=== PATIENT | female | born 1970 | race African-American/Black ===

== ENCOUNTER 2017-03-12 07:27 | Emergency (ER) | payer MEDICAID ==
[2017-03-12 07:34] VITALS: BP 150/94
--- NOTE | 2017-03-12 07:43 | ER Document Report ---
HPI - HPI Patient complains to provider of: Chronic back pain Onset: Other - Several years Onset/Duration: Gradual Quality of pain: Achy Pain Level: 1 Context: 46-year-old female recently moved here when out of her oxycodone 10 mg that she takes twice a day for chronic right-sided low back pain. She came to the emergency room to get a refill of her prescription. She was seen by an urgent care who gave her a steroid injection but would not give her the oxycodone. She does have an appointment on March 16 for pain management. She does not believe that she has been withdrawal at this time. No new symptoms. No saddle anesthesia. No radiculopathy. Associated Symptoms: None Exacerbated by: Movement Relieved by: Other - Oxycodone - ROS ROS below otherwise negative: Yes Systems Reviewed and Negative: Yes All other systems reviewed and negative - REPRODUCTIVE Reproductive: DENIES: : - DERM Skin Color: Normal Past Medical History - General Information source: Patient - Social History Smoking Status: Unknown if Ever Smoked Frequency of alcohol use: None Drug Abuse: None Lives with: Family - Daughter Family History: Arthritis, CAD, CVA, Hyperlipidemia, Hypertension, Malignancy - Past Medical History Cardiac Medical History: Reports: Hx Congestive Heart Failure, Hx Hypertension, Hx Pulmonary Embolism - 2003 Pulmonary Medical History: Reports: Hx Asthma Renal/ Medical History: Denies: Hx Peritoneal Dialysis Musculoskeltal Medical History: Reports Hx Arthritis, Reports Hx Musculoskeletal Deformity - chronic back pain Past Surgical History: Reports: Hx Section - X3 Vertical Provider Document - CONSTITUTIONAL Agree With Documented VS: Yes Exam Limitations: No Limitations - INFECTION CONTROL TRAVEL OUTSIDE OF THE [place] IN LAST 30 DAYS: No - HEENT HEENT: Normocephalic - NECK Neck: Supple - RESPIRATORY Respiratory: Breath Sounds Normal, No Respiratory Distress O2 Sat by Pulse Oximetry: 100 - CARDIOVASCULAR Cardiovascular: Regular Rate, Regular Rhythm - BACK Back: Normal Inspection Notes: Tender right-sided low back and sacral iliac area, no rash - MUSCULOSKELETAL/EXTREMETIES Musculoskeletal/Extremeties: MAEW, FROM, Tender - See above - NEURO Level of Consciousness: Awake, Alert Motor/Sensory: No Motor Deficit, No Sensory Deficit - DERM Integumentary: Warm, Dry, No Rash Course - Vital Signs Vital signs: Temp Pulse Resp BP Pulse Ox 98.3 F 75 18 150/94 H 100 03/12/17 07:33 03/12/17 07:33 03/12/17 07:33 03/12/17 07:33 03/12/17 07:33 Discharge - Discharge Clinical Impression: Chronic back pain Qualifiers: Back pain location: low back pain Back pain laterality: right Sciatica presence : without sciatica Qualified Code(s): M54.5 - Low back pain Condition: Good Disposition: HOME, SELF-CARE Instructions: Low Back Pain ([facility]), Warm Packs ([facility]), Chronic Back Pain ([facility]), Ultram ([facility]) Additional Instructions: see dr. bui for chronic pain management to er any worsening, new symptoms Prescriptions: Tramadol HCl [Ultram 50 mg Tablet] 50 mg PO ASDIR PRN #20 tablet PRN Reason: Referrals: TARYN BUI MD [ACTIVE STAFF] - Follow up tomorrow
== END 2017-03-12 08:36 | disposition home or self-care (01) ==
LOC: ER 07:27
DX: M54.5 Low back pain (principal); M54.9 Dorsalgia, unspecified; G89.29 Other chronic pain; Z79.899 Other long term (current) drug therapy
CPT/HCPCS: 99283

== ENCOUNTER 2017-03-14 18:09 | Emergency (ER) | payer MEDICAID ==
--- NOTE | 2017-03-14 18:51 | ER Document Report ---
ED Medical Screen (RME) - General Chief Complaint: Chest Pain Stated Complaint: RIGHT SIDE CHEST PAIN Time Seen by Provider: 03/14/17 18:46 Notes: 46-year-old female with past medical history as recorded including pulmonary embolism in 2003, cardiac arrest 1989 who presents today with right-sided chest pain that she states is worse when she takes a deep breath and "moves my body". She denies any nausea, vomiting, fevers, calf pain or leg swelling. Patient used to be on Coumadin but was taken off this in 2007 by her primary care physician. TRAVEL OUTSIDE OF THE [place] IN LAST 30 DAYS: No - Related Data Allergies/Adverse Reactions: azithromycin [Azithromycin] Allergy (Verified 03/14/17 18:22) Penicillins Allergy (Verified 03/14/17 18:22) Past Medical History - Past Medical History Cardiac Medical History: Reports: Hx Congestive Heart Failure, Hx Hypertension, Hx Pulmonary Embolism - 2003 Pulmonary Medical History: Reports: Hx Asthma Renal/ Medical History: Denies: Hx Peritoneal Dialysis Musculoskeltal Medical History: Reports Hx Arthritis, Reports Hx Musculoskeletal Deformity - chronic back pain Past Surgical History: Reports: Hx Section - X3 Physical Exam - Vital signs Vitals: Temp Pulse Resp BP Pulse Ox 98.8 F 72 22 H 153/83 H 99 03/14/17 18:22 03/14/17 18:22 03/14/17 18:22 03/14/17 18:22 03/14/17 18:22 Course - Vital Signs Vital signs: Temp Pulse Resp BP Pulse Ox 98.8 F 72 22 H 153/83 H 99 03/14/17 18:22 03/14/17 18:22 03/14/17 18:22 03/14/17 18:22 03/14/17 18:22
[2017-03-14 19:28] LABS: ABSOLUTE BASOPHILS # (AUTO) 0.1 10^3/uL (0.0-0.2); ABSOLUTE EOSINOPHILS # (AUTO) 0.1 10^3/uL (0.0-0.6); ABSOLUTE LYMPHOCYTES (AUTO) 3.3 10^3/uL (0.5-4.7); ABSOLUTE MONOCYTES (AUTO) 0.4 10^3/uL (0.1-1.4); ABSOLUTE NEUT (AUTO) 8.6 10^3/uL (1.7-8.2); BASOPHILS % (AUTO) 0.7 % (0-2); HEMATOCRIT 37.9 % (36.0-47.0); HEMOGLOBIN 12.3 g/dL (12.0-15.5); LYMPHOCYTES % (AUTO) 26.3 % (13-45); MEAN CORPUSCULAR HEMOGLOBIN 27.8 pg (27.0-33.4); MEAN CORPUSCULAR HGB CONC 32.3 g/dL (32.0-36.0); MEAN CORPUSCULAR VOLUME 86 fl (80-97); MONOCYTES % (AUTO) 3.1 % (3-13); RED CELL DISTRIBUTION WIDTH 15.1 % (11.5-14.0); SEGMENTED NEUTROPHILS % (AUTO) 68.9 % (42-78); WHITE BLOOD COUNT 12.4 10^3/uL (4.0-10.5)
--- NOTE | 2017-03-14 19:33 | RADIOLOGY REPORT (SQ) ---
EXAM DESCRIPTION: CHEST PA/LAT COMPLETED DATE/TIME: 03/14/2017 7:23 pm REASON FOR STUDY: cp COMPARISON: September 2014 EXAM PARAMETERS: NUMBER OF VIEWS: two views TECHNIQUE: Digital Frontal and Lateral radiographic views of the chest acquired. RADIATION DOSE: NA LIMITATIONS: none FINDINGS: LUNGS AND PLEURA: No opacities, masses or pneumothorax. No pleural effusion. MEDIASTINUM AND HILAR STRUCTURES: No masses or contour abnormalities. HEART AND VASCULAR STRUCTURES: Heart normal size. No evidence for failure. BONES: No acute findings. HARDWARE: None in the chest. OTHER: No other significant finding. IMPRESSION: NO SIGNIFICANT RADIOGRAPHIC FINDING IN THE CHEST. TECHNICAL DOCUMENTATION: JOB ID: [id number] [employer]- All Rights Reserved
[2017-03-14 19:41] LABS: ANION GAP 11 (5-19); BLOOD UREA NITROGEN 17 mg/dL (7-20); CALCIUM 9.8 mg/dL (8.4-10.2); CARBON DIOXIDE 24 mmol/L (22-30); CHLORIDE 107 mmol/L (98-107); CREATININE RESULT 0.76 mg/dL (0.52-1.25); GLUCOSE 123 mg/dL (75-110); POTASSIUM 4.1 mmol/L (3.6-5.0); SODIUM 142.2 mmol/L (137-145)
--- NOTE | 2017-03-14 19:50 | EKG REPORT ---
SEVERITY:- ABNORMAL ECG - SINUS RHYTHM FIRST DEGREE AV BLOCK BORDERLINE T WAVE ABNORMALITIES : Confirmed by: Abdirizak Major 14-Mar-2017 19:50:19
[2017-03-14] MEDS ORDERED: ONDANSETRON HCL INJ/PF 4 MG/2 ML SDV IV ONE (20:10)
[2017-03-14] MEDS ORDERED: MORPHINE SULFATE 10 MG/ML INJ IV ONE ×2 (20:10→22:10)
--- NOTE | 2017-03-14 20:10 | ER Document Report ---
ED General - General Mode of Arrival: Ambulatory Information source: Patient TRAVEL OUTSIDE OF THE [place] IN LAST 30 DAYS: No <SALENA GOMEZ - Last Filed: 03/14/17 22:23> <ERIC LUCIO - Last Filed: 03/14/17 23:58> - General Chief Complaint: Chest Pain Stated Complaint: RIGHT SIDE CHEST PAIN Time Seen by Provider: 03/14/17 18:46 Notes: Patient is a 46-year-old female who presents to emergency department today with complaints of chest pain for the last 1-2 weeks. Patient states this pain is somewhat reproducible with certain movements and right arm movement. Patient states that the pain is sharp and it hurts to breathe. Patient states that she feels like she has to take "short breaths" when she sits up. Patient states she has Toradol at home but it is not helping her pain. Patient states that she has a history of PE/DVT and was on Coumadin however now she is only taking 81 mg aspirin now. Patient denies any trauma to his chest. (SALENA GOMEZ) - Related Data Allergies/Adverse Reactions: azithromycin [Azithromycin] Allergy (Verified 03/14/17 18:22) Penicillins Allergy (Verified 03/14/17 18:22) Past Medical History - General Information source: Patient - Social History Smoking Status: Current Some Day Smoker Cigarette use (# per day): Yes Frequency of alcohol use: None Drug Abuse: None Lives with: Family Family History: Reviewed & Not Pertinent, Arthritis, CAD, CVA, Hyperlipidemia, Hypertension, Malignancy Patient has suicidal ideation: No Patient has homicidal ideation: No - Past Medical History Cardiac Medical History: Reports: Hx Congestive Heart Failure, Hx Hypertension, Hx Pulmonary Embolism - 2003 Pulmonary Medical History: Reports: Hx Asthma Renal/ Medical History: Denies: Hx Peritoneal Dialysis Musculoskeltal Medical History: Reports Hx Arthritis, Reports Hx Musculoskeletal Deformity - chronic back pain Past Surgical History: Reports: Hx Section - X3 <SALENA GOMEZ - Last Filed: 03/14/17 22:23> Review of Systems - Review of Systems Constitutional: No symptoms reported EENT: No symptoms reported Cardiovascular: See HPI, Chest pain Respiratory: See HPI, Hurts to breathe Gastrointestinal: No symptoms reported Genitourinary: No symptoms reported Female Genitourinary: No symptoms reported Musculoskeletal: No symptoms reported Skin: No symptoms reported Hematologic/Lymphatic: No symptoms reported Neurological/Psychological: No symptoms reported -: Yes All other systems reviewed and negative <SALENA GOMEZ - Last Filed: 03/14/17 22:23> Physical Exam <SALENA GOMEZ - Last Filed: 03/14/17 22:23> <ERIC LUCIO - Last Filed: 03/14/17 23:58> - Vital signs Vitals: Temp Pulse Resp BP Pulse Ox 98.8 F 72 22 H 153/83 H 99 03/14/17 18:22 03/14/17 18:22 03/14/17 18:22 03/14/17 18:22 03/14/17 18:22 - Notes Notes: Physical Exam: General: Alert, appears well. HEENT: Normocephalic. Atraumatic. PERRL. Extraocular movements intact. Oropharynx clear. Neck: Supple. Non-tender. Respiratory: No respiratory distress. Clear and equal breath sounds bilaterally. Right chest wall tenderness with palpation, reproducible pain. Cardiovascular: Regular rate and rhythm. Abdominal: Normal Inspection. Non-tender. No distension. Normal Bowel Sounds. Back: Right upper back tenderness with palpation. No deformity or step off. Extremities: Moves all four extremities. Upper extremities: Normal inspection. Normal ROM. Lower extremities: Normal inspection. No edema. Normal ROM. Neurological: Normal cognition. AAOx4. Normal speech. Psychological: Normal affect. Normal Mood. Skin: Warm. Dry. Normal color. (SALENA GOMEZ) Course - Laboratory Result Diagrams: 03/14/17 19:14 03/14/17 19:14 <SALENA GOMEZ - Last Filed: 03/14/17 22:23> - Laboratory Result Diagrams: 03/14/17 19:14 03/14/17 19:14 - Diagnostic Test Radiology reviewed: Reports reviewed <ERIC LUCIO - Last Filed: 03/14/17 23:58> - Re-evaluation Re-evalutation: 03/14/17 23:56 Patient with history of pulmonary embolus comes in complaining of chest pain that is worse with movement and breathing. Blood work within normal limits. No evidence for infection on x-ray. No evidence for pulmonary embolus on VQ scan. Attempted to get CTA with a line blue. Patient will be discharged home with pain medication and a sling. She is to follow-up with her doctor. Stable for discharge. Agrees with plan. (ERIC LUCIO) - Vital Signs Vital signs: Temp Pulse Resp BP Pulse Ox 98.8 F 72 19 167/105 H 96 03/14/17 18:22 03/14/17 18:22 03/14/17 23:01 03/14/17 23:01 03/14/17 23:01 - Laboratory Laboratory results interpreted by me: 03/14/17 03/14/17 19:14 19:14 WBC 12.4 H RDW 15.1 H Absolute Neutrophils 8.6 H Glucose 123 H Discharge <SALENA GOMEZ - Last Filed: 03/14/17 22:23> <ERIC LUCIO - Last Filed: 03/14/17 23:58> - Discharge Clinical Impression: Chest wall pain Rib sprain Qualifiers: Encounter type: initial encounter Qualified Code(s): S23.41XA - Sprain of ribs , initial encounter Condition: Stable Disposition: HOME, SELF-CARE Instructions: Chest Wall Pain ([facility]), Rib Injuries and Fractures ([facility]) Prescriptions: Oxycodone HCl/Acetaminophen [Percocet 5-325 mg Tablet] 1 - 2 tab PO Q4H PRN #15 tablet PRN Reason: Forms: Return to Work Scribe Attestation: 03/14/17 23:57 I personally performed the services described in the documentation, reviewed and edited the documentation which was dictated to the scribe in my presence, and it accurately records my words and actions. (ERIC LUCIO) Scribe Documentation - Scribe Written by Johann:: Johann Pierre, 03/14/[id number] acting as scribe for :: Leonel <SALENA GOMEZ - Last Filed: 03/14/17 22:23>
--- NOTE | 2017-03-14 23:48 | RADIOLOGY REPORT (SQ) ---
EXAM DESCRIPTION: NM LUNG VENT/PERF SCAN COMPLETED DATE/TIME: 03/14/2017 11:36 pm REASON FOR STUDY: evaluate for PE COMPARISON: Chest radiograph RADIONUCLIDE AND DOSE: 5.32 millicuries TC-99m MAA Intravenous 30.4 millicuries TC-99m DTPA Inhaled aerosol TECHNIQUE: Eight views of the lungs acquired post ventilation of DTPA aerosol. Eight matching views of the lungs acquired following injection of MAA. LIMITATIONS: None. FINDINGS: VENTILATION: Symmetric and homogeneous distribution of DTPA aerosol during ventilatory pha se. No significant areas of photopenia. PERFUSION: Perfusion images with normal homogenous activity and no wedge-shaped or segmental defects. No ventilation-perfusion mismatches. OTHER: No other significant finding. IMPRESSION: NORMAL VENTILATION-PERFUSION LUNG SCAN. NEGATIVE FOR PULMONARY EMBOLI. TECHNICAL DOCUMENTATION: JOB ID: [id number] [employer]- All Rights Reserved
[2017-03-14] MEDS ORDERED: HYDROCODONE/ACETAMINOPHEN 5-325 MG 6 TAB/DSPK PO PRN (23:52)
[2017-03-15 00:08] VITALS: BP 138/74
[2017-03-15] MEDS ORDERED: LIDOCAINE 5% (700 MG) TRANSDERMAL ADH..PATCH TP ONE (01:31)
== END 2017-03-15 00:09 | disposition home or self-care (01) ==
LOC: ER 18:09
DX: S23.41XA Sprain of ribs, initial encounter (principal); X58.XXXA Exposure to other specified factors, initial encounter; R07.89 Other chest pain; I10 Essential (primary) hypertension; J45.909 Unspecified asthma, uncomplicated; F17.210 Nicotine dependence, cigarettes, uncomplicated; Z79.82 Long term (current) use of aspirin; Z86.711 Personal history of pulmonary embolism; Z86.718 Personal history of other venous thrombosis and embolism; Z88.1 Allergy status to other antibiotic agents; Z88.0 Allergy status to penicillin; Z82.49 Family history of ischemic heart disease and other diseases of the circulatory system
CPT/HCPCS: 93005; 96376; 99285; 96374; 96375; 36415; 85025; 80048; 84484; 71020; 78582; 93010; A9540; A9567; J2270; J2405; Q9969

== ENCOUNTER 2018-07-04 20:33 | Emergency (ER) | payer SELFPAY ==
[2018-07-04] MEDS ORDERED: ONDANSETRON HCL INJ/PF 4 MG/2 ML SDV IV ONE ×2 (20:59→23:14)
[2018-07-04] MEDS ORDERED: NORMAL SALINE 1000 ML 1,000 ML IV ONE ×2 (20:59→23:42)
[2018-07-04] MEDS ORDERED: FENTANYL CITRATE INJ/PF 100 MCG/2 ML AMPUL IV ONE ×2 (20:59→21:53)
--- NOTE | 2018-07-04 21:05 | ER Document Report ---
ED GI/ - General Chief Complaint: Abdominal Pain Stated Complaint: ABDOMINAL PAIN Time Seen by Provider: 07/04/18 20:48 Notes: Patient is a 47-year-old female presenting to the emergency department complaining of her right lower abdominal pain and dysuria which started this evening. Patient admits the pain is crampy in nature and she is also nauseated. Patient denies any chest pain, shortness of breath, vaginal discharge, diarrhea, URI symptoms, headache, fever. Patient states she has been taking her medications as prescribed although did not take her evening dose. Past medical history: Hypertension, TIA, pulmonary embolism x2, asthma, kidney stones Medications: Captopril, amlodipine, albuterol, Xanax Allergies: penicillin, azithromycin Surgical history: section TRAVEL OUTSIDE OF THE [place] IN LAST 30 DAYS: No - Related Data Allergies/Adverse Reactions: azithromycin [Azithromycin] Allergy (Verified 03/14/17 18:22) Penicillins Allergy (Verified 03/14/17 18:22) Past Medical History - General Information source: Patient - Social History Smoking Status: Current Every Day Smoker Lives with: Family Family History: Reviewed & Not Pertinent, Arthritis, CAD, CVA, Hyperlipidemia, Hypertension, Malignancy - Past Medical History Cardiac Medical History: Reports: Hx Congestive Heart Failure, Hx Hypertension, Hx Pulmonary Embolism - 2003 Pulmonary Medical History: Reports: Hx Asthma Renal/ Medical History: Denies: Hx Peritoneal Dialysis Musculoskeletal Medical History: Reports Hx Arthritis, Reports Hx Musculoskeletal Deformity - chronic back pain Past Surgical History: Reports: Hx Section - X3 Review of Systems - Review of Systems Constitutional: See HPI EENT: See HPI Cardiovascular: See HPI Respiratory: See HPI Gastrointestinal: See HPI Genitourinary: See HPI Female Genitourinary: See HPI Musculoskeletal: See HPI Skin: No symptoms reported Hematologic/Lymphatic: No symptoms reported Neurological/Psychological: No symptoms reported Physical Exam - Vital signs Vitals: Pulse Ox 99 07/04/18 20:40 - Notes Notes: GENERAL: Alert, Writhing around on bed, crying in pain. Nursing staff is unable to obtain IV access at this time. HEAD: Normocephalic, atraumatic. EYES: Pupils equal, round, and reactive to light. Extraocular movements intact. ENT: Oral mucosa moist, tongue midline. NECK: Full range of motion. Supple. Trachea midline. LUNGS: Clear to auscultation bilaterally, no wheezes, rales, or rhonchi. No respiratory distress. HEART: Tachycardic rate and rhythm. No murmur ABDOMEN: Obese, Soft, Non-distended. Bowel sounds present in all 4 quadrants. Generalized pain right lower quadrant, nontender left lower quadrant left upper quadrant right upper quadrant. EXTREMITIES: Moves all 4 extremities spontaneously. No edema, normal radial and dorsalis pedis pulses bilaterally. No cyanosis. BACK: no cervical, thoracic, lumbar midline tenderness. No saddle anesthesia, normal distal neurovascular exam. Positive CVA tenderness right side NEUROLOGICAL: Alert and oriented x3. Normal speech. cranial nerves II through XII grossly intact PSYCH: Normal affect, normal mood. SKIN: Warm, dry, normal turgor. No rashes or lesions noted. Course - Re-evaluation Re-evalutation: Discussed CT results and UA with Dr. Escobar who recommends transfer to a hospital with urology. Patient has been treated multiple times with pain management continues to be tachycardic and hypertensive at this time. Patient is denying headache is just stating she has increased pain in her right lower quadrant. Discussed case with Dr. Tolentino, urologist at [facility] who states the patient should be transferred to their facility. States the patient needs to be accepted by the hospitalist and he will consult. Discussed case with Dr. Lim who is a hospitalist at [facility]. He recommends another liter of normal saline bolus and 0.8 mg p.o. tamsulosin. He states he will accept the patient. Rocephin also ordered. Slight leukocytosis seen and lab work. Positive urinary tract infection on UA, 3mm obstructing stone with right hydroureteronephrosis on CT. With administration of Dilaudid patient is now resting comfortably. She continues to be tachycardic at 110, second fluid bolus is currently being administered. Initial hypertension suspected due to patient's pain. Patient was also writhing around in the bed and nursing staff states they were unable to obtain an accurate blood pressure. Once patient was administered Dilaudid she is now resting comfortably and a manual blood pressure was obtained 210/110. Dr. Escobar suggests 10mg Labatolol IVP for HTN. Pt. remains CP and MILTON free. 07/05/18 02:36 Transport is at patient bedside. Patient states she is pain-free heart rate 108 blood pressure 181/109 96% on room air respiratory rate 14. Patient is stable for transfer. - Vital Signs Vital signs: Temp Pulse Resp BP Pulse Ox 98.6 F 23 H 181/109 H 95 07/04/18 20:53 07/05/18 02:01 07/05/18 02:01 07/05/18 02:01 - Laboratory Result Diagrams: 07/04/18 21:23 07/04/18 21:23 Laboratory results interpreted by me: 07/04/18 07/04/18 07/04/18 20:40 21:23 21:23 WBC 12.8 H RDW 14.3 H Absolute Neutrophils 9.8 H Glucose 120 H AST 48 H Lipase 395.8 H Urine Protein 30 H Urine Blood LARGE H Urine Nitrite POSITIVE H Ur Leukocyte Esterase SMALL H Discharge - Discharge Clinical Impression: Kidney stone on right side Hydronephrosis Qualifiers: Hydronephrosis type: with ureteral calculous obstruction Qualified Code(s): N13.2 - Hydronephrosis with renal and ureteral calculous obstruction Urinary tract infection Qualifiers: Urinary tract infection type: acute cystitis Hematuria presence: with hematuria Qualified Code(s): N30.01 - Acute cystitis with hematuria Condition: Stable Disposition: [facility] Admitting Provider: Hospitalist - Dr. Lim
[2018-07-04 21:35] LABS: ABSOLUTE BASOPHILS # (AUTO) 0.1 10^3/uL (0.0-0.2); ABSOLUTE EOSINOPHILS # (AUTO) 0.2 10^3/uL (0.0-0.6); ABSOLUTE LYMPHOCYTES (AUTO) 2.2 10^3/uL (0.5-4.7); ABSOLUTE MONOCYTES (AUTO) 0.5 10^3/uL (0.1-1.4); ABSOLUTE NEUT (AUTO) 9.8 10^3/uL (1.7-8.2); BASOPHILS % (AUTO) 0.6 % (0-2); EOSINOPHILS % (AUTO) 1.2 % (0-6); HEMATOCRIT 39.7 % (36.0-47.0); LYMPHOCYTES % (AUTO) 17.3 % (13-45); MEAN CORPUSCULAR HEMOGLOBIN 28.7 pg (27.0-33.4); MEAN CORPUSCULAR HGB CONC 32.7 g/dL (32.0-36.0); MEAN CORPUSCULAR VOLUME 88 fl (80-97); PLATELET COUNT 286 10^3/uL (150-450); RED BLOOD COUNT 4.53 10^6/uL (3.72-5.28); RED CELL DISTRIBUTION WIDTH 14.3 % (11.5-14.0); SEGMENTED NEUTROPHILS % (AUTO) 76.9 % (42-78); TOTAL CELLS COUNTED % (AUTO) 100 %; WHITE BLOOD COUNT 12.8 10^3/uL (4.0-10.5)
[2018-07-04 21:38] LABS: APPEARANCE,URINE CLOUDY; BILIRUBIN,URINE NEGATIVE (NEGATIVE); COLOR,URINE YELLOW; GLUCOSE, URINE NEGATIVE (NEGATIVE); KETONES,URINE NEGATIVE (NEGATIVE); LEUKOCYTE ESTERASE,URINE SMALL (NEGATIVE); NITRITE,URINE POSITIVE (NEGATIVE); PROTEIN,URINE 30 mg/dL (NEGATIVE); URINE SPECIFIC GRAVITY 1.016; UROBILINOGEN,URINE NEGATIVE mg/dL (<2.0)
[2018-07-04 21:47] LABS: ALANINE AMINOTRANSFERASE 50 U/L (9-52); ALBUMIN 4.1 g/dL (3.5-5.0); ALKALINE PHOSPHATASE 72 U/L (38-126); ANION GAP 12 (5-19); ASPARTATE AMINO TRANSFERASE 48 U/L (14-36); BILIRUBIN,DIRECT 0.3 mg/dL (0.0-0.4); BILIRUBIN,TOTAL 0.4 mg/dL (0.2-1.3); BLOOD UREA NITROGEN 16 mg/dL (7-20); CALCIUM 9.9 mg/dL (8.4-10.2); CARBON DIOXIDE 28 mmol/L (22-30); CHLORIDE 104 mmol/L (98-107); GLUCOSE 120 mg/dL (75-110); LIPASE 395.8 U/L (23-300); POTASSIUM 4.5 mmol/L (3.6-5.0); SODIUM 143.6 mmol/L (137-145); TOTAL PROTEIN 7.2 g/dL (6.3-8.2)
--- NOTE | 2018-07-04 22:26 | RADIOLOGY REPORT (SQ) ---
CT ABDOMEN PELVIS WITH IV CONTRAST HISTORY: Right lower quadrant pain. COMPARISON: None. TECHNIQUE: CT scan of the abdomen and pelvis with IV contrast. This exam was performed according to our departmental dose-optimization program, which includes automated exposure control, adjustment of the mA and/or kV according to patient size and/or use of iterative reconstruction technique. FINDINGS: Lung bases are clear. No pleural or pericardial effusions. Liver, gallbladder, spleen, pancreas, and adrenal glands are unremarkable. 3 mm obstructing stone in the proximal right ureter with right hydroureteronephrosis and perinephric/periureteric stranding. Additional punctate nonobstructing stones in the left kidney. Pelvic organs are unremarkable. No bowel obstruction. Appendix is normal. No free air or free fluid. Abdominal aorta is normal caliber. No acute osseous findings. IMPRESSION: 3 mm obstructing stone in the proximal right ureter with right hydroureteronephrosis and inflammatory stranding. Additional punctate nonobstructing stones in the left kidney.
[2018-07-04] MEDS ORDERED: KETOROLAC TROMETHAMINE INJ/PF 30 MG/1 ML SDV IV ONE (22:54)
[2018-07-04] MEDS ORDERED: HYDROMORPHONE HCL INJ/PF 2 MG/ML AMPULE IV ONE (23:14)
[2018-07-04] MEDS ORDERED: TAMSULOSIN HCL 0.4 MG CAP.SR.24H PO ONE (23:42)
[2018-07-05] MEDS ORDERED: HYDROMORPHONE HCL INJ/PF 2 MG/ML AMPULE IV ONE (00:59)
[2018-07-05] MEDS ORDERED: LABETALOL HCL INJ 20 MG/4 ML DISP.SYRIN IV ONE (00:59)
[2018-07-05] MEDS ORDERED: CEFTRIAXONE 1 GM/D5W RTU 1 GM/50 ML RTUPB IV ONE (01:00)
[2018-07-05 02:05] VITALS: BP 181/109
== END 2018-07-05 02:45 | disposition short-term general hospital (02) ==
LOC: ER 20:33
DX: N13.2 Hydronephrosis with renal and ureteral calculous obstruction (principal); N30.01 Acute cystitis with hematuria; I10 Essential (primary) hypertension; R00.0 Tachycardia, unspecified; F17.200 Nicotine dependence, unspecified, uncomplicated; J45.909 Unspecified asthma, uncomplicated; Z79.899 Other long term (current) drug therapy; Z88.0 Allergy status to penicillin; Z88.1 Allergy status to other antibiotic agents
CPT/HCPCS: 96376; 99285; 96361; 96375; 96365; 36415; 87086; 83690; 85025; 81025; 87088; 80053; 81001; 87186; 74177; J3010; J3490; J1885; J1170 ×2; J2405; J7030 ×2; J0696

== ENCOUNTER 2018-08-18 10:39 | Emergency (ER) | payer MEDICAID ==
[2018-08-18] MEDS ORDERED: ACETAMINOPHEN 325 MG TABLET PO ONE (11:18)
--- NOTE | 2018-08-18 11:24 | ER Document Report ---
ED Fall - General Chief Complaint: Fall Stated Complaint: FALL/HEAD PAIN Time Seen by Provider: 08/18/18 11:06 Mode of Arrival: Ambulatory Information source: Patient Notes: 48-year-old female presented to ED for complaint of body aches all over. She states she has bad pain to the right flank and abdomen. She states she has not had any hematuria but she is concerned because she recently had a stent removed and was told not to fall while recovering from the stent removal. She states yesterday she fell through her deck when it collapsed and [place] was [place] and had to come and caught her out. She states that they checked her out and told her since she was able to move all extremities and walk that she had no broken bones that she just needed to relax. Patient is able to walk with her walker as is her normal. She is alert oriented respirations regular and unlabored she does have some tenderness to the right flank area. TRAVEL OUTSIDE OF THE [place] IN LAST 30 DAYS: No - HPI Occurred: Yesterday Where: Home, Outdoors Context: Fell from height - Fell through the porch when the porch collapsed she was stuck in the porch into the farm and cut her out Associated symptoms: None Location of injury/pain: Other - Total body hurts right flank is very painful Quality of pain: Achy, Sharp Severity: Moderate Pain Level: 4 - Related data Allergies/Adverse Reactions: azithromycin [Azithromycin] Allergy (Verified 08/18/18 10:41) Penicillins Allergy (Verified 08/18/18 10:41) Past Medical History - General Information source: Patient - Social History Smoking Status: Current Every Day Smoker Cigarette use (# per day): Yes Smoking Education Provided: Yes - 4 min Lives with: Family Family History: Arthritis, Malignancy, CAD, CVA, Hyperlipidemia, Hypertension, Reviewed & Not Pertinent Patient has suicidal ideation: No Patient has homicidal ideation: No - Past Medical History Cardiac Medical History: Reports: Hx Congestive Heart Failure, Hx Hypertension, Hx Pulmonary Embolism - 2003 Pulmonary Medical History: Reports: Hx Asthma, Hx Bronchitis EENT Medical History: Reports: None Neurological Medical History: Reports: None Endocrine Medical History: Reports: None Renal/ Medical History: Reports: Hx Kidney Stones Malignancy Medical History: Reports: None GI Medical History: Reports: None Musculoskeletal Medical History: Reports Hx Arthritis, Reports Hx Musculoskeletal Deformity - chronic back pain Skin Medical History: Reports None Psychiatric Medical History: Reports: None Traumatic Medical History: Reports: None Infectious Medical History: Reports: None Past Surgical History: Reports: Hx Section - x3, Hx Kidney (Renal Surgery) - stent and removal - Immunizations Immunizations up to date: Yes Review of Systems - Review of Systems Constitutional: No symptoms reported EENT: No symptoms reported Cardiovascular: No symptoms reported Respiratory: No symptoms reported Gastrointestinal: No symptoms reported Genitourinary: Flank pain - right Female Genitourinary: No symptoms reported Musculoskeletal: Back pain, Joint pain, Muscle pain, Muscle stiffness. denies: Joint swelling Skin: No symptoms reported Hematologic/Lymphatic: No symptoms reported Neurological/Psychological: No symptoms reported Physical Exam - Vital signs Vitals: Temp Pulse Resp BP Pulse Ox 98.5 F 89 18 180/94 H 97 08/18/18 10:54 08/18/18 10:54 08/18/18 10:54 08/18/18 10:54 08/18/18 10:54 Interpretation: Normal - Notes Notes: Patient has muscle tenderness to her whole body. No point tenderness except for to the right flank area. Patient has chronic pain and states that she just hurts all over she is able to walk with her walker. - General General appearance: Appears well, Alert - HEENT Head: Normocephalic, Atraumatic Eyes: Normal Pupils: PERRL - Respiratory Respiratory status: No respiratory distress Chest status: Nontender Breath sounds: Normal Chest palpation: Normal - Cardiovascular Rhythm: Regular Heart sounds: Normal auscultation Murmur: No - Abdominal Inspection: Normal Distension: No distension Bowel sounds: Normal Tenderness: Nontender Organomegaly: No organomegaly - Back Back: Tender - Muscle tenderness to upper and lower back worse right kidney area, CVA tenderness - right - Extremities General upper extremity: Normal inspection, Nontender, Normal color, Normal ROM, Normal temperature General lower extremity: Normal inspection, Nontender, Normal color, Normal ROM, Normal temperature, Normal weight bearing. No: Edwin's sign - Neurological Neuro grossly intact: Yes Cognition: Normal Orientation: AAOx4 Sage Coma Scale Eye Opening: Spontaneous Sage Coma Scale Verbal: Oriented Raul Coma Scale Motor: Obeys Commands Sage Coma Scale Total: 15 Speech: Normal Motor strength normal: LUE, RUE, LLE, RLE Sensory: Normal - Psychological Associated symptoms: Normal affect, Normal mood - Skin Skin Temperature: Warm Skin Moisture: Dry Skin Color: Normal Course - Re-evaluation Re-evalutation: 08/18/18 18:23 CT and ultrasound was discussed with patient before she was discharged. PHYSICAL MEDICINE PHYSICIAN Dr. Horton was consulted due to the results of the CT and ultrasound. She stated the patient should call the office on Monday and schedule a appointment for follow-up with probable endometrial biopsies. Patient was educated to please call PHYSICAL MEDICINE PHYSICIAN on Monday and schedule follow-up. Patient was informed of her mildly hydronephrosis but no acute injuries. 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 Patient was discharged home. - Vital Signs Vital signs: Temp Pulse Resp BP Pulse Ox 98.4 F 79 18 154/106 H 99 08/18/18 14:30 08/18/18 14:30 08/18/18 14:30 08/18/18 14:30 08/18/18 14:30 - Diagnostic Test Radiology reviewed: Image reviewed, Reports reviewed Discharge - Discharge Clinical Impression: endometial changes, contusions multiple areas, Myalgia Fall Qualifiers: Encounter type: initial encounter Qualified Code(s): W19.XXXA - Unspecified fall, initial encounter Condition: Stable Disposition: HOME, SELF-CARE Instructions: Family Physicians / Practices Additional Instructions: Your CT showed thickening to your endometrium which is the lining of your uterus. I have discussed the CT and the ultrasound with you and with a cell room supervisor. [employer] has instructed that you follow-up with her on Monday for further testing and possible biopsies of the lining of your uterus. Please be sure to call them Monday morning and schedule a follow-up appointment. Please bring your CT and ultrasound results with you to this appointment. MUSCLE STRAIN: You have strained a muscle -- torn the fibers within the muscle. This often occurs with strenuous exertion, or during an injury that suddenly stretches the muscle. The seriousness of a strain varies. Some strains heal within days, others cause problems for months. X-rays cannot show a muscle strain. X-rays are taken only if symptoms suggest that a fracture could be present. The usual treatment of a muscle strain is rest and ice packs. Sometimes, a sling, splint, or crutches may be necessary to rest the muscle. The muscle can be used again once pain subsides. Severe strains require a special exercise and stretching program to prevent permanent stiffness and disability. Your doctor will advise you if this will be necessary. Call the doctor immediately if pain or swelling becomes severe, or if numbness or discoloration develop. CONTUSION: Your injury has resulted in a contusion -- a crushing of the deep tissues. No injury to important structures was detected during the physician's exam. Contusions vary in the amount of pain they cause, and in the length of time required for healing. Typically, the area will become bruised, and will remain painful to touch for two or three weeks. However, most patients are back to working and playing within a few days. After the initial period of rest and cold-packs, your symptoms (together with the doctor's recommendations) will determine how rapidly you can get back to full activity. Usually this means "do what feels okay, but don't do things that hurt." If re-examination was recommended, it's important to follow up as instructed. Call the doctor or return any time if pain increases, if swelling becomes severe, if you develop numbness or weakness in an injured extremity, or if any other alarming symptoms occur. LOW BACK PAIN: Three out of every four people will have an episode of disabling back pain during their lifetime. Most commonly the pain is due to straining of the muscles and ligaments in the low back. Usual treatment includes: (1) Rest on a firm surface. Avoid lying on your stomach. (2) Ice pack the painful area. After a few days, gentle heat may be used intermittently to relax the area, or ice packs can be continued. (3) Medication may be needed -- muscle relaxers and antiinflammatory medicines are commonly used. (4) As the back improves, exercises are prescribed to strengthen the back and abdominal muscles. Your doctor will advise you on the proper care for your back at each stage in your recovery. You may be better in a few days -- or healing may take several weeks. If new symptoms of a "herniated disc" (radiation of pain, numbness, or tingling down the back of the leg or weakness in the leg) occur, you should be re-examined. Further testing may be necessary. USE OF TYLENOL (ACETAMINOPHEN): Acetaminophen may be taken for pain relief or fever control. It's much safer than aspirin, offering a wider range of "safe" dosages. It is safe during . Some brand names are Tylenol, Panadol, Datril, Anacin 3, Tempra, and Liquiprin. Acetaminophen can be repeated every four hours. The following are maximum recommended dosages: WEIGHT Dose Drops Elixir Chewable(80mg) (LBS.) drprs=droppers tsp=teaspoon 6 40 mg 0.4 ml (1/2) 6-11 80 mg 0.8 ml (full) tsp 1 tab 12-16 120 mg 1 1/2 drprs 3/4 tsp 1 1/2 tabs 17-23 160 mg 2 drprs 1 tsp 2 tabs 24-30 240 mg 3 drprs 1 1/2 tsp 3 tabs 30-35 320 mg 2 tsp 4 tabs 36-41 360 mg 2 1/4 tsp 4 1/2 tabs 42-47 400 mg 2 1/2 tsp 5 tabs 48-53 480 mg 3 tsp 6 tabs 54-59 520 mg 3 1/4 tsp 6 1/2 tabs 60-64 560 mg 3 1/2 tsp 7 tabs 65-70 600 mg 3 3/4 tsp 7 1/2 tabs 71-76 640 mg 4 tsp 8 tabs 77-82 720 mg 4 1/2 tsp 9 tabs 83-88 800 mg 5 tsp 10 tabs >89 pounds or adults 650 mg to 900 mg Acetaminophen can be repeated every four hours. Maximum dose not to exceed 4000 mg a day. These maximum recommended dosages are slightly higher than the dosages written on the product container, but these dosages are very safe and below the toxic dosage for acetaminophen. ICE PACKS: Apply ice packs frequently against the painful area. Many different schedules are recommended, such as "20 minutes on, 20 minutes off" or "one hour ice, two hours rest." If you need to work, you may need to go longer between ice treatments. You should plan to have the area ice packed AT LEAST one fourth of the time. The ice should be applied over the wrap, tape, or splint, or over a layer of cloth -- not directly against the skin. Some ice bags have a built-in cloth and can be put directly on the skin. WARM PACKS: After approximately two days, apply gentle heat (such as a heating pad or hot water bottle) for about 20 to 30 minutes about every two hours -- at least four times daily. Warmth and elevation will help you make a more rapid recovery, and will ease the pain considerably. Do not use HOT heat, and never apply heat for longer than 30 minutes. The continuous heat can invisibly damage skin and muscles -- even when no burn is seen on the surface. Damaged muscles can make you MORE sore. MUSCLE RELAXERS: Muscle relaxing medications are usually prescribed for acute muscle spasm or injury to the neck and back. They are often combined with antiinflammatory pain medication for increased relief. You may stop the muscle relaxer when the pain and stiffness have improved. Start the medication again if spasms recur. Muscle relaxers may cause drowsiness, especially with the first dose. Do not operate machinery or drive while under the effects of the medication. Most muscle relaxers last up to 24 hours. Do not combine the medication with alcohol. FOLLOW-UP CARE: If you have been referred to a physician for follow-up care, call the physicians office for an appointment as you were instructed or within the next two days. If you experience worsening or a significant change in your symptoms, notify the physician immediately or return to the Emergency Department at any t franco for re-evaluation. Prescriptions: Cyclobenzaprine HCl [Flexeril 10 mg Tablet] 10 mg PO TIDP PRN #15 tab PRN Reason: Forms: Elevated Blood Pressure, Smoking Cessation Education Referrals: [facility] [Provider Group] - 08/22/18 (Please call [facility] Monday morning and schedule a follow-up appointment for Monday or for your changes to the CT and ultrasound)
[2018-08-18 11:46] LABS: APPEARANCE,URINE CLOUDY; BILIRUBIN,URINE NEGATIVE (NEGATIVE); COLOR,URINE YELLOW; GLUCOSE, URINE NEGATIVE (NEGATIVE); KETONES,URINE NEGATIVE (NEGATIVE); LEUKOCYTE ESTERASE,URINE NEGATIVE (NEGATIVE); NITRITE,URINE NEGATIVE (NEGATIVE); PROTEIN,URINE NEGATIVE (NEGATIVE); URINE SPECIFIC GRAVITY 1.023; UROBILINOGEN,URINE NEGATIVE mg/dL (<2.0)
--- NOTE | 2018-08-18 12:17 | RADIOLOGY REPORT (SQ) ---
EXAM DESCRIPTION: CT LTD RENAL STONE PROTOCOL ON COMPLETED DATE/TIME: 08/18/2018 11:45 am REASON FOR STUDY: fall yesterday recent removal of stent from kidney COMPARISON: 07/04/2018 TECHNIQUE: CT scan of the abdomen and pelvis performed without intravenous or oral contrast. Images reviewed with lung, soft tissue, and bone windows. Reconstructed coronal and sagittal MPR images revi ewed. All images stored on PACS. All CT scanners at this facility use dose modulation, iterative reconstruction, and/or weight based d osing when appropriate to reduce radiation dose to as low as reasonably achievable (ALARA). [facility]: Dose Right [facility]: CareDose [facility]: Dose Right [facility]: Teradose 4D [facility]: Smart Sinobpo RADIATION DOSE: CT Rad equipment meets quality standard of care and radiation dose reduction techniq ues were employed. CTDIvol: 17.6 mGy. DLP: 947 mGy-cm.mGy. LIMITATIONS: None FINDINGS: LOWER CHEST: No significant findings. No nodules or infiltrates. NON-CONTRASTED LIVER, SPLEEN, ADRENALS: Evaluation limited by lack of IV contrast. No identified sign ificant masses. PANCREAS: No masses. No peripancreatic inflammatory changes. GALLBLADDER: No identified stones by CT criteria. No inflammatory changes to suggest cholecystitis. RIGHT KIDNEY AND URETER: No suspicious masses. Assessment limited by lack of IV contrast. No signif icant calcifications. Minimal residual hydronephrosis hydroureter. LEFT KIDNEY AND URETER: No suspicious masses. Assessment limited by lack of IV contrast. Peripheral nonobstructive calculus. No hydronephrosis or hydroureter. AORTA AND RETROPERITONEUM: No aneurysm. No retroperitoneal masses or adenopathy. BOWEL AND PERITONEAL CAVITY: Diverticulosis. No diverticulitis. APPENDIX: Normal. PELVIS, BLADDER, AND ABDOMINAL WALL:Marked thickening of the endometrium. Worrisome finding in a pos tmenopausal female. BONES: No significant findings. OTHER: No other significant finding. IMPRESSION: Mild residual hydronephrosis on the right. No calculi. Marked thickening of endometrium, worrisome finding in postmenopausal female. COMMENT: Recommend pelvic ultrasound. Quality ID # [id number]: Final reports with documentation of one or more dose reduction techniques (e.g., Au tomated exposure control, adjustment of the mA and/or kV according to patient size, use of iterative reconstruction technique) TECHNICAL DOCUMENTATION: JOB ID: [id number] [employer]- All Rights Reserved Reading location - IP/workstation name: [email or web address]
--- NOTE | 2018-08-18 14:02 | RADIOLOGY REPORT (SQ) ---
EXAM DESCRIPTION: U/S NON OB PEL TV W/DOPPLER COMPLETED DATE/TIME: 08/18/2018 1:31 pm REASON FOR STUDY: radiology recomendation COMPARISON: CT abdomen and pelvis without contrast. TECHNIQUE: Dynamic and static grayscale images acquired of the pelvis via transvaginal approach and recorded on PACS. Additional selected color Doppler and spectral images recorded. LIMITATIONS: None. FINDINGS: UTERUS: The uterus is normal measuring 11.1 x 6.1 x 6.7 cm. ENDOMETRIAL STRIPE: There is evidence of a complex lobulated cystic fluid collection in the endometri al canal measuring 2.2 x 2.7 x 2.0 cm. The endometrium is thickened measuring 1.7 cm abnormal for po stmenopausal patient. CERVIX: There are nabothian cysts of the cervix. The cervix measures 4.4 cm. RIGHT OVARY AND DOPPLER: Nonvisualized. LEFT OVARY AND DOPPLER: Nonvisualized. IMPRESSION: Abnormal thickened endometrium in postmenopausal patient. Cystic lobulated fluid collec tion within the endometrial canal. Learning And Development Intern consultation recommended. . TECHNICAL DOCUMENTATION: JOB ID: [id number]-[id number] 2010 [employer]- All Rights Reserved Rev-01/12 Reading location - IP/workstation name: [email or web address]
[2018-08-18 14:27] VITALS: BP 154/106
== END 2018-08-18 14:30 | disposition home or self-care (01) ==
LOC: ER 10:39
DX: T14.8XXA Other injury of unspecified body region, initial encounter (principal); W13.3XXA Fall through floor, initial encounter; Y93.89 Activity, other specified; Y92.008 Other place in unspecified non-institutional (private) residence as the place of occurrence of the external cause; R93.89 Abnormal findings on diagnostic imaging of other specified body structures; N13.30 Unspecified hydronephrosis; R10.9 Unspecified abdominal pain; M25.50 Pain in unspecified joint; M79.10 Myalgia, unspecified site; M54.9 Dorsalgia, unspecified; G89.29 Other chronic pain; I10 Essential (primary) hypertension; J45.909 Unspecified asthma, uncomplicated; F17.210 Nicotine dependence, cigarettes, uncomplicated; Z71.6 Tobacco abuse counseling; Z98.890 Other specified postprocedural states; Z88.0 Allergy status to penicillin; Z88.1 Allergy status to other antibiotic agents; Z87.442 Personal history of urinary calculi
CPT/HCPCS: 99406; 99284; 81001; 76830; 93976; 76380; J3490

== ENCOUNTER 2018-08-28 18:27 | Emergency (ER) | payer MEDICAID ==
--- NOTE | 2018-08-28 21:11 | ER Document Report ---
Addendum entered and electronically signed by KRISHERIC MTONY 08/28/18 22:15: Course - Re-evaluation Re-evalutation: 08/28/18 22:15 Patient has been waiting in the waiting room and had to break out in hives. I have ordered her IV Benadryl to help with her symptoms. - Vital Signs Vital signs: Temp Pulse Resp BP Pulse Ox 99.4 F 84 15 153/81 H 97 08/28/18 18:47 08/28/18 18:47 08/28/18 18:47 08/28/18 18:47 08/28/18 18:47 - Laboratory Result Diagrams: 08/28/18 21:35 08/28/18 21:35 Original Note: ED Medical Screen (RME) - General Chief Complaint: Abdominal Pain Stated Complaint: ABDOMINAL PAIN Time Seen by Provider: 08/28/18 21:04 Notes: Patient is a 48-year-old female who presents to the emergency department with a chief complaint of abdominal pain. Her pain started this morning around 10:00. She does complain of some nausea, but no vomiting. She did state that she had a hard stool earlier and now has diarrhea. She denies any sick contacts. She has a history of a kidney stone with removal from urologist on August 02. She states she has been in menopause since she was 43 years old and had an ablation done. TRAVEL OUTSIDE OF THE [place] IN LAST 30 DAYS: No - Related Data Allergies/Adverse Reactions: azithromycin [Azithromycin] Allergy (Verified 08/18/18 10:41) Penicillins Allergy (Verified 08/18/18 10:41) Past Medical History - Past Medical History Cardiac Medical History: Reports: Hx Congestive Heart Failure, Hx Hypertension, Hx Pulmonary Embolism - 2003 Pulmonary Medical History: Reports: Hx Asthma, Hx Bronchitis Renal/ Medical History: Reports: Hx Kidney Stones. Denies: Hx Peritoneal Dialysis Musculoskeltal Medical History: Reports Hx Arthritis, Reports Hx Musculoskeletal Deformity - chronic back pain Past Surgical History: Reports: Hx Section - x3, Hx Kidney (Renal Surgery) - stent and removal - Immunizations Immunizations up to date: Yes Physical Exam - Vital signs Vitals: Temp Pulse Resp BP Pulse Ox 99.4 F 84 15 153/81 H 97 08/28/18 18:47 08/28/18 18:47 08/28/18 18:47 08/28/18 18:47 08/28/18 18:47 - Abdominal Bowel sounds: Normal Tenderness: Tender - Generalized Course - Vital Signs Vital signs: Temp Pulse Resp BP Pulse Ox 99.4 F 84 15 153/81 H 97 08/28/18 18:47 08/28/18 18:47 08/28/18 18:47 08/28/18 18:47 08/28/18 18:47
[2018-08-28] MEDS ORDERED: ONDANSETRON HCL INJ/PF 4 MG/2 ML SDV IV ONE (21:12)
[2018-08-28] MEDS ORDERED: MORPHINE SULFATE 10 MG/ML INJ IV ONE (21:35)
[2018-08-28 22:10] LABS: ABSOLUTE EOSINOPHILS # (AUTO) 0.1 10^3/uL (0.0-0.6); ABSOLUTE LYMPHOCYTES (AUTO) 2.6 10^3/uL (0.5-4.7); ABSOLUTE MONOCYTES (AUTO) 0.3 10^3/uL (0.1-1.4); ABSOLUTE NEUT (AUTO) 9.4 10^3/uL (1.7-8.2); BASOPHILS % (AUTO) 0.3 % (0-2); EOSINOPHILS % (AUTO) 0.8 % (0-6); HEMATOCRIT 39.8 % (36.0-47.0); HEMOGLOBIN 13.1 g/dL (12.0-15.5); LYMPHOCYTES % (AUTO) 20.6 % (13-45); MEAN CORPUSCULAR HEMOGLOBIN 28.8 pg (27.0-33.4); MEAN CORPUSCULAR HGB CONC 33.1 g/dL (32.0-36.0); MEAN CORPUSCULAR VOLUME 87 fl (80-97); MONOCYTES % (AUTO) 2.7 % (3-13); PLATELET COUNT 330 10^3/uL (150-450); RED BLOOD COUNT 4.57 10^6/uL (3.72-5.28); RED CELL DISTRIBUTION WIDTH 14.7 % (11.5-14.0); SEGMENTED NEUTROPHILS % (AUTO) 75.6 % (42-78); TOTAL CELLS COUNTED % (AUTO) 100 %; WHITE BLOOD COUNT 12.4 10^3/uL (4.0-10.5)
[2018-08-28 22:12] LABS: APPEARANCE,URINE CLEAR; BILIRUBIN,URINE NEGATIVE (NEGATIVE); COLOR,URINE YELLOW; GLUCOSE, URINE 50 mg/dL (NEGATIVE); KETONES,URINE 20 mg/dL (NEGATIVE); LEUKOCYTE ESTERASE,URINE NEGATIVE (NEGATIVE); NITRITE,URINE NEGATIVE (NEGATIVE); PROTEIN,URINE NEGATIVE (NEGATIVE); URINE SPECIFIC GRAVITY 1.023; UROBILINOGEN,URINE NEGATIVE mg/dL (<2.0)
[2018-08-28] MEDS ORDERED: DIPHENHYDRAMINE HCL 50 MG/ML VIAL IV ONE (22:14)
[2018-08-29 00:37] LABS: ALANINE AMINOTRANSFERASE 29 U/L (9-52); ALBUMIN 4.1 g/dL (3.5-5.0); ALKALINE PHOSPHATASE 63 U/L (38-126); ANION GAP 6 (5-19); ASPARTATE AMINO TRANSFERASE 23 U/L (14-36); BILIRUBIN,DIRECT 0.2 mg/dL (0.0-0.4); BILIRUBIN,TOTAL 0.5 mg/dL (0.2-1.3); BLOOD UREA NITROGEN 15 mg/dL (7-20); CALCIUM 9.8 mg/dL (8.4-10.2); CARBON DIOXIDE 28 mmol/L (22-30); CHLORIDE 106 mmol/L (98-107); GLUCOSE 97 mg/dL (75-110); LIPASE 112.5 U/L (23-300); POTASSIUM 4.3 mmol/L (3.6-5.0); SODIUM 139.9 mmol/L (137-145)
[2018-08-29] MEDS ORDERED: DICYCLOMINE HCL INJ 20 MG/2 ML AMPULE IM ONE (01:02)
[2018-08-29] MEDS ORDERED: FENTANYL CITRATE INJ/PF 100 MCG/2 ML AMPUL IV ONE (02:09)
[2018-08-29] MEDS ORDERED: NORMAL SALINE 1000 ML 1,000 ML IV ONE (02:10)
--- NOTE | 2018-08-29 02:12 | ER Document Report ---
ED General - General Chief Complaint: Abdominal Pain Stated Complaint: ABDOMINAL PAIN Time Seen by Provider: 08/28/18 21:04 Notes: Patient is a 48-year-old female presents with complaint of abdominal pains mostly in the upper and left-sided portion of her abdomen. Symptoms worse with eating or drink. She says any diarrhea. Some nausea. No fevers. She does have previous history of diverticulitis in 2003. No history of gallbladder disease. No blood with vomiting. She said that she has had some diarrhea that eventually did turn black but this was until after she took Pepto-Bismol. TRAVEL OUTSIDE OF THE [place] IN LAST 30 DAYS: No - Related Data Allergies/Adverse Reactions: azithromycin [Azithromycin] Allergy (Verified 08/18/18 10:41) Penicillins Allergy (Verified 08/18/18 10:41) Past Medical History - Social History Smoking Status: Current Every Day Smoker Chew tobacco use (# tins/day): No Frequency of alcohol use: None Drug Abuse: None Family History: Arthritis, Malignancy, CAD, CVA, Hyperlipidemia, Hypertension, Reviewed & Not Pertinent Patient has suicidal ideation: No Patient has homicidal ideation: No - Past Medical History Cardiac Medical History: Reports: Hx Congestive Heart Failure, Hx Hypertension, Hx Pulmonary Embolism - 2003 Pulmonary Medical History: Reports: Hx Asthma, Hx Bronchitis Renal/ Medical History: Reports: Hx Kidney Stones. Denies: Hx Peritoneal Dialysis Musculoskeletal Medical History: Reports Hx Arthritis, Reports Hx Musculoskeletal Deformity - chronic back pain Past Surgical History: Reports: Hx Section - x3, Hx Kidney (Renal Surgery) - stent and removal - Immunizations Immunizations up to date: Yes Review of Systems - Review of Systems Notes: My Normal Review Basic REVIEW OF SYSTEMS: CONSTITUTIONAL : Denies fever, chills, or sweats. Denies recent illness. EENT: Denies eye, ear, throat, or mouth pain or symptoms. Denies nasal or s inus congestion. RESPIRATORY: Denies cough, cold, or chest congestion. Denies shortness of breath, difficulty breathing, or wheezing. GASTROINTESTINAL: Some left-sided abdominal pain. Some nausea. Some diarrhea. GENITOURINARY: Denies difficulty urinating, painful urination, burning, frequency, or blood in urine. MUSCULOSKELETAL: Denies neck or back pain or joint pain or swelling. SKIN: Denies rash or skin lesions. NEUROLOGICAL: Denies altered mental status or loss of consciousness. Denies headache. Denies weakness or paralysis or loss of use of either side. Denies problems with gait or speech. Denies sensory or motor loss. ALL OTHER SYSTEMS REVIEWED AND NEGATIVE. Physical Exam - Vital signs Vitals: Temp Pulse Resp BP Pulse Ox 99.4 F 84 15 153/81 H 97 08/28/18 18:47 08/28/18 18:47 08/28/18 18:47 08/28/18 18:47 08/28/18 18:47 - Notes Notes: General Appearance: Well nourished, alert, cooperative, no acute distress, mild obvious discomfort. Vitals: reviewed, See vital signs table. Head: no swelling or tenderness to the head Eyes: PERRL, EOMI, Conjuctiva clear Mouth: No decreasd moisture Neck: Supple, no neck tenderness, No thyromegaly Lungs: No wheezing, No rales, No rhonci, No accessory muscle use, good air exchange bilaterally. Heart: Normal rate, Regular rythm, No murmur, no rub Abdomen: Normal BS, soft, No rigidity, mild left upper quadrant abdominal tenderness to palpation. Remainder of abdomen is nontender. Extremities: strength 5/5 in all extremities, good pulses in all extremities, no swelling or tenderness in the extremities, no edema. Skin: warm, dry, appropriate color, no rash Neuro: speech clear, oriented x 3, normal affect, responds appropriately to questions. Course - Re-evaluation Re-evalutation: 08/29/18 06:[address] scan just redemonstrated the findings of the uterus that need follow- up. Patient is already aware of these and so she is going to schedule follow-up with her snack bar cashier. States she called the office this morning. I informed patient that I do not see anything acutely life threatening or concerning on her CT scan or with her blood workup. I informed her that we will place her on medication for pain and nausea over the next 24 hours. She is to return to ER for reevaluation if she still having pain or nausea after 24 hours. Patient agrees with this plan will be discharged home. On examination the patient curr ently is pain-free. She said the only time she really has the pain now is if she drinks too much fluids. She otherwise is pain-free and looks well. Patient will be discharged home. Dictation of this chart was performed using voice recognition software; therefore, there may be some unintended grammatical errors. - Vital Signs Vital signs: Temp Pulse Resp BP Pulse Ox 98.2 F 72 16 136/69 H 95 08/29/18 05:03 08/29/18 05:03 08/29/18 05:03 08/29/18 05:03 08/29/18 05:03 - Laboratory Result Diagrams: 08/28/18 21:35 08/29/18 00:16 Laboratory results interpreted by me: 08/28/18 08/28/18 21:35 21:35 WBC 12.4 H RDW 14.7 H Monocytes % 2.7 L Absolute Neutrophils 9.4 H Urine Glucose (UA) 50 H Urine Ketones 20 H Discharge - Discharge Clinical Impression: Nausea Abdominal pain Qualifiers: Abdominal location: unspecified location Qualified Code(s): R10.9 - Unspecified abdominal pain Diarrhea Qualifiers: Diarrhea type: unspecified type Qualified Code(s): R19.7 - Diarrhea, unspecified Condition: Good Disposition: HOME, SELF-CARE Additional Instructions: Your CT scan did not show anything concerning that would be acutely causing your pain. It did show that small defect over your uterus which you were made aware of previously. Please follow-up with a snack bar cashier in regards to this. I will put down the number to the [facility] again. The number is under the name, Dr. Ho. Your blood work did not show any concerning findings. The exact cause of your abdominal pain and diarrhea is not 100% clear at this time; however, I do not see any evidence of anything acutely life threatening. At this time we will send her home with some pain and nausea medicine. Need to return to the ER if you are still having any pain or nausea after 24 hours. At that time we can recheck your labs and reevaluate you. Please continue with the above-mentioned follow-up if your symptoms have completely resolved and you feel better . Please return to the ER immediately if you have fevers, intractable vomiting, worsening pain, or if you feel that you are worsening in any way. Please be aware that [place] does have Tylenol (acetaminophen) in it. Please make sure you do not take more than 4000 mg of acetaminophen a day. Do not drive or care for children after you have taken this medication they will make you sleepy and sometimes impair judgment. Referrals: LELO HO MD [ACTIVE STAFF] - Follow up as needed (Please call the office this am for 1st available follow up.)
--- NOTE | 2018-08-29 04:16 | RADIOLOGY REPORT (SQ) ---
EXAM DESCRIPTION: CT ABDOMEN PELVIS WITH IV CONTRAST COMPLETED DATE/TME: 08/29/2018 02:09 CLINICAL HISTORY: 48 years Female, abdominal pain Comparison:07/04/18 Technique: IV contrast. Coronal and sagittal reformat. This exam was performed according to our departmental dose-optimization program, which includes automated exposure control, adjustment of the mA and/or kV according to patient size and/or use of iterative reconstruction technique. [facility]: Dose Right [facility]: CareDose [facility]: Dose Right [facility]: Teradose 4D [facility]: Zeo LIMITATIONS: None Findings: Low-attenuation 1-cm defect of the anterolateral uterine fundal wall; differential diagnosis includes uterine fibroid, colouterine fistula, or adenomyosis. No ascites. No pneumoperitoneum. No bowel obstruction. No hydronephrosis or hydroureter. 0.3 cm and 0.2 cm left upper renal stones. Normal appendix. Colonic diverticulosis. Hepatic steatosis. Atherosclerotic vascular disease. Inferior thorax, liver, gallbladder, pancreas, spleen, adrenals, renal system, gastrointestinal tract, pelvic organs, lymphatics, vasculature, and musculoskeleton appear otherwise unremarkable. IMPRESSION: 1. No acute findings. 2. Low-attenuation defect of the anterolateral uterine fundal wall; differential diagnosis includes uterine fibroid, scar/developmental Mullerian variant, enterouterine fistula, and adenomyosis. Consider further evaluation with pelvic ultrasound/MRI, CT of the abdomen pelvis using IV and oral contrast, or hysterosalpingogram, as clinically warranted. 3. Small left nephrolithiasis. Colonic diverticulosis. Hepatic steatosis.
[2018-08-29] MEDS ORDERED: ONDANSETRON ODT 4 MG TAB (6 TAB/ER DISP) PO PRN (04:48)
[2018-08-29] MEDS ORDERED: HYDROCODONE/ACETAMINOPHEN 5-325 MG (6 TAB/ER DISP) PO PRN (04:48)
[2018-08-29 05:08] VITALS: BP 136/69
== END 2018-08-29 05:08 | disposition home or self-care (01) ==
LOC: ER 18:27
DX: R10.12 Left upper quadrant pain (principal); R11.0 Nausea; R19.7 Diarrhea, unspecified; F17.200 Nicotine dependence, unspecified, uncomplicated; I10 Essential (primary) hypertension; J45.909 Unspecified asthma, uncomplicated; Z87.19 Personal history of other diseases of the digestive system; Z88.1 Allergy status to other antibiotic agents; Z88.0 Allergy status to penicillin
CPT/HCPCS: 99284; 96372; 96361; 96374; 96375; 36415; 83690; 85025; 80053; 81001; 74177; J0500; J1200; J3010; J2270; J2405; J7030

== ENCOUNTER 2018-11-03 13:05 | Emergency (ER) | payer MEDICAID ==
[2018-11-03 13:16] VITALS: BP 169/93
--- NOTE | 2018-11-03 13:57 | ER Document Report ---
ED Medical Screen (RME) - General Chief Complaint: Abdominal Pain Stated Complaint: ABDOMINAL PAIN,VOMITING,WEAKNESS Time Seen by Provider: 11/03/18 13:50 Primary Care Provider: NICCI CAMEJO MD [Primary Care Provider] - Follow up as needed Mode of Arrival: Ambulatory Information source: Patient, Relative, [facility] Records Notes: 48-year-old female presents with abdominal pain that has been ongoing for 2 weeks. Patient has a history of chronic abdominal pain questionable uterine cancer. States she has been followed up at [facility] and was told that she will require surgery. Patient states pain is worsening and she has had nausea, vomiting, diarrhea and inability to tolerate any food or fluids. I have greeted and performed a rapid initial assessment of this patient. A comprehensive ED assessment and evaluation of the patient, analysis of test results and completion of medical decision making process we will be contacted by additional ED providers. PHYSICAL EXAMINATION: Vital signs reviewed GENERAL: Well-appearing, well-nourished and in no acute distress. LUNGS: No respiratory distress Musculoskeletal: Normal range of motion NEUROLOGICAL: Normal speech, normal gait. PSYCH: Normal mood, normal affect. SKIN: Warm, Dry, normal turgor, no rashes or lesions noted. TRAVEL OUTSIDE OF THE [place] IN LAST 30 DAYS: No - HPI Onset: Other Onset/Duration: Intermittent Quality of pain: Sharp Severity: Moderate Associated Symptoms: Abdominal pain, Diarrhea, Nausea, Vomiting Exacerbated by: Food Relieved by: Denies Similar symptoms previously: Yes Recently seen / treated by doctor: Yes - Related Data Smoking: Non-smoker Frequency of alcohol use: None Drug Abuse: None Allergies/Adverse Reactions: azithromycin [Azithromycin] Allergy (Verified 09/13/18 10:48) Penicillins Allergy (Verified 09/13/18 10:48) Past Medical History - Past Medical History Cardiac Medical History: Reports: Hx Congestive Heart Failure, Hx Hypertension, Hx Pulmonary Embolism - 2003 Denies: Hx Coronary Artery Disease, Hx Heart Attack Pulmonary Medical History: Reports: Hx Asthma, Hx Bronchitis Denies: Hx COPD, Hx Pneumonia - hx PE Neurological Medical History: Denies: Hx Cerebrovascular Accident, Hx Seizures Renal/ Medical History: Reports: Hx Kidney Stones. Denies: Hx Peritoneal Dialysis Musculoskeltal Medical History: Reports Hx Arthritis, Reports Hx Musculoskeletal Deformity - chronic back pain Past Surgical History: Reports: Hx Section - x3, Hx Kidney (Renal Surgery) - stent and removal - Immunizations Immunizations up to date: Yes Hx Diphtheria, Pertussis, Tetanus Vaccination: Yes History of Influenza Vaccine for 05/2017 - 10/2017 Season: No Physical Exam - Vital signs Vitals: Temp Pulse Resp BP Pulse Ox 98.2 F 66 16 169/93 H 100 11/03/18 13:15 11/03/18 13:15 11/03/18 13:15 11/03/18 13:15 11/03/18 13:15 Course - Vital Signs Vital signs: Temp Pulse Resp BP Pulse Ox 98.2 F 66 16 169/93 H 100 11/03/18 13:15 11/03/18 13:15 11/03/18 13:15 11/03/18 13:15 11/03/18 13:15 Doctor's Discharge - Discharge Referrals: NICCI CAMEJO MD [Primary Care Provider] - Follow up as needed
[2018-11-03] MEDS ORDERED: ONDANSETRON HCL INJ/PF 4 MG/2 ML SDV IV ONE (13:58)
[2018-11-03 16:18] LABS: APPEARANCE,URINE SLIGHTLY-CLOUDY; BILIRUBIN,URINE NEGATIVE (NEGATIVE); COLOR,URINE YELLOW; GLUCOSE, URINE NEGATIVE (NEGATIVE); KETONES,URINE 20 mg/dL (NEGATIVE); LEUKOCYTE ESTERASE,URINE NEGATIVE (NEGATIVE); NITRITE,URINE NEGATIVE (NEGATIVE); PROTEIN,URINE NEGATIVE (NEGATIVE); URINE SPECIFIC GRAVITY 1.024
== END 2018-11-03 17:23 | disposition left against medical advice (07) ==
LOC: ER 13:05
DX: R10.9 Unspecified abdominal pain (principal); R11.2 Nausea with vomiting, unspecified; R19.7 Diarrhea, unspecified; I10 Essential (primary) hypertension; J45.909 Unspecified asthma, uncomplicated; Z87.442 Personal history of urinary calculi; Z88.0 Allergy status to penicillin; Z88.1 Allergy status to other antibiotic agents; Z53.20 Procedure and treatment not carried out because of patient's decision for unspecified reasons
CPT/HCPCS: 81001; 99281

== ENCOUNTER 2018-11-12 10:59 | Day surgery (SDC) | payer MEDICAID ==
[~2018-11-12 10:59] MED LIST: PROPOFOL INJ 200 MG/20 ML VIAL IV ONE
[2018-11-12 12:37] VITALS: BP 162/76
--- NOTE | 2018-11-12 13:05 | Operative Report ---
Operative Report DATE OF SURGERY: 11/12/18 Operative Report: The risks, benefits and alternatives of the procedure including the risk of bleeding, perforation requiring surgery have been explained to the patient in detail and informed consent has been obtained. Patient is placed in the left, lateral decubital position. Timeout was called. Propofol medication is administered. Rectal examination is done which did not reveal any masses, tears or fissures. An Olympus videoscope was introduced into the patient's rectum. The scope was then carefully advanced all the way to the cecum. The cecum was identified by the usual anatomical landmarks including the ileocecal valve as well as the appendiceal office. Photodocumentation is obtained. The scope was then sequentially pulled back via the various segments of the colon including the ascending colon, hepatic flexure, transverse colon, splenic flexure, desce nding colon and finally into the rectosigmoid portions of the colon. Retroflexion maneuver was performed. The risks benefits and alternatives of the procedure explained to the patient in detail and informed consent is obtained.A GIF Olympus video scope was inserted into the patient's mouth and hypopharynx, the esophagus is identified intubated and insufflated, the scope was then advanced through the esophagus stomach and duodenum, retroflexion maneuver is done, the esophagus stomach and first and second portions of the duodenum examined. PREOPERATIVE DIAGNOSIS: History of colon polyp. Change of bowel habits. Nausea vomiting POSTOPERATIVE DIAGNOSIS: Mild inflammation noted on the right-hand side of the colon status post biopsy. Internal hemorrhoids. Esophagitis versus Argueta's status post biopsy. Gastritis status post biopsy rule out Helicobacter pylori OPERATION: Colonoscopy with biopsy. EGD with biopsy SURGEON: BRIAN EATON ANESTHESIA: LMAC TISSUE REMOVED OR ALTERED: As noted above. COMPLICATIONS: None. ESTIMATED BLOOD LOSS: None. INTRAOPERATIVE FINDINGS: As noted above. PROCEDURE: Patient tolerated the procedure well. No immediate postprocedure complications are noted. Patient is discharged in good condition. Discharge date 11/12/2018. Discharge diet: Regular. Discharge activity: Regular. 2-3-week follow-up to discuss findings. Patient is instructed to call the office or to go to the emergency room should there be any further problems or questions. We will wait on the biopsies. Further recommendations to follow.
== END 2018-11-12 12:41 | disposition home or self-care (01) ==
LOC: END 10:59
PROVIDERS: ATTEND Internal Medicine Gastroenterology
DX: K20.9 Esophagitis, unspecified (principal); Z86.010 Personal history of colon polyps; K52.9 Noninfective gastroenteritis and colitis, unspecified; K64.8 Other hemorrhoids; K29.50 Unspecified chronic gastritis without bleeding; J45.909 Unspecified asthma, uncomplicated; M06.9 Rheumatoid arthritis, unspecified; E78.5 Hyperlipidemia, unspecified; F17.210 Nicotine dependence, cigarettes, uncomplicated; J45.20 Mild intermittent asthma, uncomplicated; I10 Essential (primary) hypertension; G89.4 Chronic pain syndrome; Z86.73 Personal history of transient ischemic attack (TIA), and cerebral infarction without residual deficits
CPT/HCPCS: 43239; 45380; 88342 ×2; 88305 ×2; J2704; 813

== ENCOUNTER 2019-03-29 08:59 | Day surgery (SDC) | payer MEDICAID ==
[2019-03-28 11:45] LABS: APPEARANCE,URINE SLIGHTLY-CLOUDY; BILIRUBIN,URINE NEGATIVE (NEGATIVE); COLOR,URINE YELLOW; GLUCOSE, URINE NEGATIVE (NEGATIVE); KETONES,URINE NEGATIVE (NEGATIVE); LEUKOCYTE ESTERASE,URINE NEGATIVE (NEGATIVE); NITRITE,URINE NEGATIVE (NEGATIVE); PROTEIN,URINE NEGATIVE (NEGATIVE); URINE SPECIFIC GRAVITY 1.023; UROBILINOGEN,URINE NEGATIVE mg/dL (<2.0)
[2019-03-28 12:57] LABS: HEMATOCRIT 39.3 % (36.0-47.0); HEMOGLOBIN 12.8 g/dL (12.0-15.5); MEAN CORPUSCULAR HEMOGLOBIN 28.8 pg (27.0-33.4); MEAN CORPUSCULAR HGB CONC 32.7 g/dL (32.0-36.0); MEAN CORPUSCULAR VOLUME 88 fl (80-97); PLATELET COUNT 282 10^3/uL (150-450); RED BLOOD COUNT 4.45 10^6/uL (3.72-5.28); RED CELL DISTRIBUTION WIDTH 14.8 % (11.5-14.0); WHITE BLOOD COUNT 7.6 10^3/uL (4.0-10.5)
[2019-03-28 13:21] LABS: ALANINE AMINOTRANSFERASE 52 U/L (9-52); ALBUMIN 4.3 g/dL (3.5-5.0); ALKALINE PHOSPHATASE 63 U/L (38-126); ANION GAP 7 (5-19); ASPARTATE AMINO TRANSFERASE 38 U/L (14-36); BILIRUBIN,DIRECT 0.3 mg/dL (0.0-0.4); BILIRUBIN,TOTAL 0.4 mg/dL (0.2-1.3); BLOOD UREA NITROGEN 18 mg/dL (7-20); CALCIUM 10.3 mg/dL (8.4-10.2); CARBON DIOXIDE 31 mmol/L (22-30); CHLORIDE 103 mmol/L (98-107); GLUCOSE 108 mg/dL (75-110); POTASSIUM 4.7 mmol/L (3.6-5.0); TOTAL PROTEIN 7.4 g/dL (6.3-8.2)
--- NOTE | 2019-03-28 18:15 | EKG REPORT ---
SEVERITY:- ABNORMAL ECG - SINUS RHYTHM FIRST DEGREE AV BLOCK ABNORMAL T, CONSIDER ISCHEMIA, LATERAL LEADS : Confirmed by: Maria R Pitt MD 28-Mar-2019 18:15:00
[2019-03-29] MEDS ORDERED: CITRIC ACID/SODIUM CITRATE ORAL SOLN 15 ML UDCUP ONE (10:16)
[2019-03-29] MEDS ORDERED: SUGAMMADEX SODIUM 200 MG/2 ML SDV IV ONE (11:12)
[2019-03-29] MEDS ORDERED: PROMETHAZINE HCL INJ 25 MG/1 ML VIAL IV PRN ×2 (12:13)
[2019-03-29] MEDS ORDERED: DIPHENHYDRAMINE HCL 50 MG/ML VIAL IV PRN (12:13)
[2019-03-29] MEDS ORDERED: FENTANYL CITRATE INJ/PF 100 MCG/2 ML AMPUL IV PRN ×3 (12:13)
[2019-03-29] MEDS ORDERED: MEPERIDINE HCL/PF INJ 25 MG/1 ML DISP.SYRIN IV PRN (12:13)
[2019-03-29] MEDS ORDERED: BUPIVACAINE HCL 0.25 % INJ/PF (2.5 MG/1 ML) 30 ML VIAL INJ ONE (13:09)
--- NOTE | 2019-03-29 13:54 | Operative Report ---
Operative Report DATE OF SURGERY: 03/29/19 PREOPERATIVE DIAGNOSIS: 1. Thickened endometrium on ultrasound. 2. Chronic a bdominal/pelvic pain. 3. Morbid obesity POSTOPERATIVE DIAGNOSIS: Same plus dense abdominal adhesions OPERATION: 1. Diagnostic hysteroscopy. 2. Dilatation and curettage. 3. Diagnostic laparoscopy SURGEON: MARCIANO MAYA ANESTHESIA: GA TISSUE REMOVED OR ALTERED: Endometrial curettings COMPLICATIONS: None ESTIMATED BLOOD LOSS: 50 ml INTRAOPERATIVE FINDINGS: Uterus sounded 8 cm; Atrophic endometrium; dense abdominal adhesions--omentum adhesed to the anterior abdominal wall PROCEDURE: The patient was taken to the Operating Room where general anesthesia was obtained without difficulty. She was prepped and draped in the normal sterile fashion in the dorsal lithotomy position. Exam under anesthesia was performed and noted above. A speculum was placed in the vagina. The anterior cervix was grasped with a single-tooth tenaculum and the uterus sounded to 8 cm. Sequential dilators were then used to dilate the cervix to accommodate the hysteroscope. The hysteroscope was primed with Normal saline and then gently advanced into the uterine cavity in the usual fashion. Endometrial cavity contained adhesions which may account for the thickening seen on ultrasound. The fundus was seen, but not the ostia. The endometrial lining was atrophic. Pictures were taken and the hysteroscope then removed. At this time gentle a curettage was performed until a gritty texture was noted. Minimal endometrial curettings obtained. All instruments were removed from the patient's cervix and vagina. A Hulka tenaculum was then placed on the anterior lip of the cervix for the laparoscopy Attention was then turned to the patient's abdomen where a 5 mm skin incision was then made in the umbilicus. The Optiview trocar with 0 laparoscope was then advanced without difficulty under direct visualization with the Optiview trocar. This was performed while tenting the abdominal wall. Intraperitoneal placement was confirmed by the direct visualization. Pneumoperitoneum was then obtained with approximately 4 L carbon dioxide gas. Survey of the patient's abdomen and pelvis revealed dense omentum was adhesed to the anterior abdominal wall. Two 5 mm lateral ports were placed under direct visualization. The two lateral ports were placed as an attempt to lyse the adhesions. The visibility was poor, therefore pictures were taken and I decided to abandon the procedure. All operative sites were visualized and noted to be hemostatic. The CO2 gas wsa then turned off and allowed to escape from the patient's abdomen. All trocars were then removed. The skin at all trocar sites were closed with 4-0 Vicryl in a subcuticular fashion with overlying Dermabond. Attention was then returned to the patient's vagina where the Hulka manipulator was removed. There was some bleeding, therefore Monsel's was placed to gain hemostasis. All instruments were then removed from the patient's vagina. Patient tolerated the procedures well. Sponge, lap, needle and instrument counts were correct x2. Patient was taken to the PACU in stable condition.
[2019-03-29] MEDS ORDERED: ROCURONIUM BROMIDE INJ 50 MG/5 ML VIAL IV ONE (14:14)
[2019-03-29] MEDS ORDERED: SUCCINYLCHOLINE CHLORIDE INJ 200 MG/10 ML VIAL ONE (14:14)
[2019-03-29] MEDS ORDERED: DEXAMETHASONE SOD PHOSPHATE INJ 4 MG/1 ML VIAL ONE (14:16)
[2019-03-29] MEDS ORDERED: ONDANSETRON HCL INJ/PF 4 MG/2 ML SDV ONE (14:16)
[2019-03-29] MEDS ORDERED: FENTANYL CITRATE INJ/PF 100 MCG/2 ML AMPUL ONE (14:16)
[2019-03-29] MEDS ORDERED: MIDAZOLAM 2 MG/2 ML INJ ONE (14:16)
[2019-03-29] MEDS ORDERED: PROPOFOL INJ 200 MG/20 ML VIAL IV ONE (14:17)
[2019-03-29] MEDS ORDERED: LIDOCAINE 2% INJ-PF (20 MG/ML) 10 ML AMPUL ONE (14:19)
[2019-03-29] MEDS ORDERED: ACETAMINOPHEN 1,000 MG/100 ML RTUPB IV ONE (14:20)
[2019-03-29] MEDS ORDERED: LORAZEPAM INJ 2 MG/1 ML VIAL ONE (14:20)
[2019-03-29] MEDS: HYDROMORPHONE HCL INJ/PF 2 MG/ML AMPULE ONE ×2 (14:25→14:38)
[2019-03-29] MEDS ORDERED: ONDANSETRON HCL INJ/PF 4 MG/2 ML SDV IV PRN (15:20)
[2019-03-29] MEDS ORDERED: OXYCODONE-ACETAMINOPHEN 5-325 MG TABLET ONE (15:21)
[2019-03-29] MEDS ORDERED: OXYCODONE-ACETAMINOPHEN 5-325 MG TABLET PO PRN (15:22)
[2019-03-29 16:43] VITALS: BP 152/99
== END 2019-03-29 16:35 | disposition home or self-care (01) ==
LOC: OROUT 08:59
PROVIDERS: ATTEND Obstetrics & Gynecology
DX: G89.29 Other chronic pain (principal); R10.9 Unspecified abdominal pain; K66.0 Peritoneal adhesions (postprocedural) (postinfection); N85.00 Endometrial hyperplasia, unspecified; E66.01 Morbid (severe) obesity due to excess calories; Z68.41 Body mass index [BMI] 40.0-44.9, adult; Z01.818 Encounter for other preprocedural examination; R10.2 Pelvic and perineal pain; I10 Essential (primary) hypertension; J45.909 Unspecified asthma, uncomplicated; Z79.51 Long term (current) use of inhaled steroids; F17.210 Nicotine dependence, cigarettes, uncomplicated; Z86.73 Personal history of transient ischemic attack (TIA), and cerebral infarction without residual deficits; G47.33 Obstructive sleep apnea (adult) (pediatric)
CPT/HCPCS: 93005; 86900; 86901; 36415; 86850; 85027; 81025; 80053; 81001; 88305 ×2; 93010; 00952; 58558; 49320; C1758; J2250; J3490 ×4; J1100; J3010; J1170; J2060; J0330; J2405; J2704; J0131; 952

== ENCOUNTER 2019-04-04 21:18 | Emergency (ER) | payer MEDICAID ==
[2019-04-04] MEDS ORDERED: ONDANSETRON HCL INJ/PF 4 MG/2 ML SDV IV ONE (21:57)
[2019-04-04] MEDS ORDERED: HYDROMORPHONE HCL INJ/PF 2 MG/ML AMPULE IV ONE (21:57)
--- NOTE | 2019-04-04 21:59 | ER Document Report ---
ED General - General Chief Complaint: Numbness of Arm Stated Complaint: RIGHT ARM TINGLING Time Seen by Provider: 04/04/19 21:47 Primary Care Provider: GUILLE FERRARA MD [ACTIVE STAFF] - Follow up in 3-5 days Notes: Patient is a 48-year-old female that comes emergency department by EMS for chief complaint of right shoulder, right chest, right arm pain. She states she also feels some shooting and tingling down the right arm. Symptoms started this afternoon while she was driving. She states that she cannot think of her recent injury. She also states her face was twitching earlier today. She denies shortness of breath, denies any other locations of pain, denies any other locations or tingling, denies numbness. She reports a vague headache. She denies fever/chills, nausea/vomiting. Past medical history includes hypertension, asthma, TIA on aspirin and Percocet for chronic pain. She states she had tumors removed from her uterus here on 03/29/2019 as well. TRAVEL OUTSIDE OF THE [place] IN LAST 30 DAYS: No - Related Data Allergies/Adverse Reactions: azithromycin [Azithromycin] Allergy (Severe, Verified 03/29/19 09:12) HIVES, N/V latex Allergy (Intermediate, Verified 03/29/19 09:12) Hives Penicillins Allergy (Mild, Verified 03/29/19 09:12) HIVES ITCHING morphine Allergy (Verified 03/29/19 09:12) Hives Past Medical History - General Information source: Patient, Relative - Social History Smoking Status: Never Smoker Frequency of alcohol use: None Lives with: Family Family History: Arthritis, Malignancy, CAD, CVA, Hyperlipidemia, Hypertension, Reviewed & Not Pertinent - Past Medical History Cardiac Medical History: Reports: Hx Congestive Heart Failure, Hx Hypertension, Hx Pulmonary Embolism - 2003 Denies: Hx Coronary Artery Disease, Hx Heart Attack Pulmonary Medical History: Reports: Hx Asthma, Hx Bronchitis Denies: Hx COPD, Hx Pneumonia - hx PE Neurological Medical History: Denies: Hx Cerebrovascular Accident, Hx Seizures Renal/ Medical History: Reports: Hx Kidney Stones. Denies: Hx Peritoneal Dialysis Musculoskeletal Medical History: Reports Hx Arthritis, Reports Hx Musculoskeletal Deformity - chronic back pain Past Surgical History: Reports: Hx Section - x3, Hx Kidney (Renal Surgery) - stent and removal - Immunizations Immunizations up to date: Yes Hx Diphtheria, Pertussis, Tetanus Vaccination: Yes Review of Systems - Review of Systems Constitutional: No symptoms reported EENT: No symptoms reported Cardiovascular: No symptoms reported Respiratory: No symptoms reported Gastrointestinal: No symptoms reported Genitourinary: No symptoms reported Female Genitourinary: No symptoms reported Musculoskeletal: See HPI Skin: No symptoms reported Hematologic/Lymphatic: No symptoms reported Neurological/Psychological: No symptoms reported Physical Exam - Vital signs Vitals: Resp 11 L 04/04/19 21:30 - Notes Notes: GENERAL: Alert, interacts well. No acute distress. HEAD: Normocephalic, atraumatic. EYES: Pupils equal, round, and reactive to light. Extraocular movements intact. ENT: Oral mucosa moist, tongue midline. Oropharynx unremarkable. Airway patent. LUNGS: Clear to auscultation bilaterally, no wheezes, rales, or rhonchi. No respiratory distress. HEART: Regular rate and rhythm. No murmur ABDOMEN: Soft, non-tender. Non-distended. Bowel sounds present in all 4 quadrants. GENITOURINARY: Deferred EXTREMITIES: Minimal pain with palpation of the latter anterior chest/pectoral muscle. Pain with movement over the area. Pain with palpation over the posterior shoulder, supraspinatus, proximal humerus, and mildly over the bicep and tricep. Range of motion is painful but intact. No severe pain on palpation, no abnormal heat or erythema, no induration or fluctuance, otherwise unremarkable. Strength is intact, distal pulses and sensation intact. BACK: no cervical, thoracic, lumbar midline tenderness. No saddle anesthesia, normal distal neurovascular exam. Moves all extremities in full range of motion. NEUROLOGICAL: Alert and oriented x3. Normal speech. Cranial nerves II through XII grossly intact. PSYCH: Normal affect, normal mood. SKIN: Warm, dry, normal turgor. No rashes or lesions noted. Course - Re-evaluation Re-evalutation: Patient has pain over the right posterior shoulder, pain over the supraspinatus and proximal humerus, and slight pain in the bicep and trapezius. She has much worse pain with movement. She does not have any numbness, she has no strength deficit. Appears completely to be peripheral, I do not suspect central/cerebral source of her symptoms based on her very specific evaluation. Patient herself immediately told me that "this is not like a TIA, I have had one of those before and this hurts". She was provided with pain medicine. After she was medicated I reevaluated her, she is not using the extremity and for her phone. She did have a little bit of pectoralis tenderness over the right lateral area, however this was also specific and muscular as well. EKG shows lateral T wave inversions, however this is not changed at all from prior, no new findings. Sinus rhythm, unremarkable QTC. Chest x-ray unremarkable. Shoulder x-ray showing possible loose body. CBC, chemistry, troponin unremarkable. Discussed loose body x-ray, discussed options. Discussion patient will be referred to orthopedics, placed in a sling, she already is on pain management at home, she requests a muscle relaxer and was provided with this. Discussed return precautions with patient and family. They state understanding and agreement with plan. - Vital Signs Vital signs: Temp Pulse Resp BP Pulse Ox 98.7 F 19 169/87 H 95 04/05/19 00:01 04/05/19 00:01 04/05/19 00:01 04/05/19 00:01 - Laboratory Result Diagrams: 04/04/19 22:49 04/04/19 22:49 Laboratory results interpreted by me: 04/04/19 04/04/19 22:49 22:49 WBC 10.6 H RDW 14.5 H Glucose 123 H Discharge - Discharge Clinical Impression: Right arm pain Right shoulder pain Qualifiers: Chronicity: acute Qualified Code(s): M25.511 - Pain in right shoulder Condition: Stable Disposition: HOME, SELF-CARE Additional Instructions: There appears to be a loose body noted on the x-ray of your shoulder. Your examination indicates pain over your rotator cuff and the muscles of your arm as well. I recommend heat to the area, rest, the muscle relaxer as prescribed, your regular pain medication, and the sling for comfort. Remember to take your arm out of the sling frequently and perform range of motion to avoid freezing of the shoulder. Follow-up closely with either orthopedics of your choice or the orthopedic referral listed below. Return if you worsen including severe worsening pain or swelling, fever, or new symptoms such as shortness of breath, vomiting, passing out, pain in your chest, etc. Prescriptions: Methocarbamol [Robaxin-750] 750 mg PO QID PRN #20 tablet PRN Reason: Referrals: GUILLE FERRARA MD [ACTIVE STAFF] - Follow up in 3-5 days
--- NOTE | 2019-04-04 22:36 | RADIOLOGY REPORT (SQ) ---
EXAM DESCRIPTION: XR CHEST 1 VIEW COMPLETED DATE/TME: 04/04/2019 21:57 CLINICAL HISTORY: 48 years, Female, right sided chest pain COMPARISON: 09/13/2018 chest NUMBER OF VIEWS: 1 TECHNIQUE: Portable chest LIMITATIONS: None. FINDINGS: Heart size normal. Lungs clear. No pneumothorax IMPRESSION: Negative chest copyright 2010 [employer]- All Rights Reserved
--- NOTE | 2019-04-04 22:37 | RADIOLOGY REPORT (SQ) ---
EXAM DESCRIPTION: XR SHOULDER 2 OR MORE VIEWS COMPLETED DATE/TME: 04/04/2019 21:57 CLINICAL HISTORY: 48 years, Female, right shoulder pain; ? injury COMPARISON: None. NUMBER OF VIEWS: 3 TECHNIQUE: 3 view right shoulder LIMITATIONS: None. FINDINGS: Negative for acute fracture or dislocation. Ovoid 8.3 mm ossific density inferior to the coracoid process is suspicious for loose body. IMPRESSION: No acute osseous abnormality. Possible loose body as above copyright 2010 [email or web address]- All Rights Reserved
[2019-04-04 23:04] LABS: ABSOLUTE BASOPHILS # (AUTO) 0.1 10^3/uL (0.0-0.2); ABSOLUTE EOSINOPHILS # (AUTO) 0.2 10^3/uL (0.0-0.6); ABSOLUTE LYMPHOCYTES (AUTO) 3.1 10^3/uL (0.5-4.7); ABSOLUTE MONOCYTES (AUTO) 0.4 10^3/uL (0.1-1.4); ABSOLUTE NEUT (AUTO) 6.8 10^3/uL (1.7-8.2); BASOPHILS % (AUTO) 0.5 % (0-2); EOSINOPHILS % (AUTO) 1.7 % (0-6); HEMATOCRIT 37.3 % (36.0-47.0); HEMOGLOBIN 12.3 g/dL (12.0-15.5); LYMPHOCYTES % (AUTO) 29.1 % (13-45); MEAN CORPUSCULAR HEMOGLOBIN 28.9 pg (27.0-33.4); MEAN CORPUSCULAR HGB CONC 32.9 g/dL (32.0-36.0); MEAN CORPUSCULAR VOLUME 88 fl (80-97); MONOCYTES % (AUTO) 3.9 % (3-13); PLATELET COUNT 307 10^3/uL (150-450); RED BLOOD COUNT 4.25 10^6/uL (3.72-5.28); RED CELL DISTRIBUTION WIDTH 14.5 % (11.5-14.0); SEGMENTED NEUTROPHILS % (AUTO) 64.8 % (42-78); TOTAL CELLS COUNTED % (AUTO) 100 %; WHITE BLOOD COUNT 10.6 10^3/uL (4.0-10.5)
[2019-04-04 23:16] LABS: ALBUMIN 4.2 g/dL (3.5-5.0); ALKALINE PHOSPHATASE 72 U/L (38-126); ANION GAP 10 (5-19); ASPARTATE AMINO TRANSFERASE 30 U/L (14-36); BILIRUBIN,DIRECT 0.2 mg/dL (0.0-0.4); BILIRUBIN,TOTAL 0.2 mg/dL (0.2-1.3); BLOOD UREA NITROGEN 16 mg/dL (7-20); CARBON DIOXIDE 27 mmol/L (22-30); CHLORIDE 103 mmol/L (98-107); GLUCOSE 123 mg/dL (75-110)
[2019-04-05 00:26] VITALS: BP 169/87
--- NOTE | 2019-04-05 08:06 | EKG REPORT ---
SEVERITY:- ABNORMAL ECG - SINUS RHYTHM FIRST DEGREE AV BLOCK LEFT VENTRICULAR HYPERTROPHY ABNORMAL T, CONSIDER ISCHEMIA, LATERAL LEADS : Confirmed by: Stanford Segura MD 05-Apr-2019 08:05:58
== END 2019-04-05 00:30 | disposition home or self-care (01) ==
LOC: ER 21:18
DX: M25.511 Pain in right shoulder (principal); M79.601 Pain in right arm; R20.0 Anesthesia of skin; R07.9 Chest pain, unspecified; I50.9 Heart failure, unspecified; I11.0 Hypertensive heart disease with heart failure; J45.909 Unspecified asthma, uncomplicated; Z79.899 Other long term (current) drug therapy
CPT/HCPCS: 93005; 99284; 96374; 96375; 36415; 83735; 85025; 80053; 84484; 71045; 73030; 93010; J1170; J2405

== ENCOUNTER 2019-05-27 10:32 | Emergency (ER) | payer MEDICAID ==
[2019-05-27] MEDS ORDERED: IPRATROPIUM/ALBUTEROL 0.5-2.5 MG/3 ML AMPUL NEB ONE (11:05)
--- NOTE | 2019-05-27 11:05 | ER Document Report ---
ED Medical Screen (RME) - General Chief Complaint: Cough Stated Complaint: COUGH Time Seen by Provider: 05/27/19 11:02 Primary Care Provider: NICCI CAMEJO MD [Primary Care Provider] - Follow up as needed TRAVEL OUTSIDE OF THE [place] IN LAST 30 DAYS: No - HPI Notes: 05/27/19 11:03 Patient is a 48-year-old female with a history of hypertension and asthma who presents complaining of a productive cough for the past 3 weeks with intermittent wheezing from her asthma. Denies [place], current fever, neck pain, CP, Abd pain, dysuria, back pain, or rash. I have treated and performed a rapid initial assessment of this patient. A comprehensive ED assessment and evaluation of the patient, analysis of test results and completion of medical decision making process will be conducted by additional ED providers. PHYSICAL EXAMINATION: GENERAL: Well-appearing, well-nourished and in no acute distress. A&Ox4. Answers questions appropriately. LUNGS: Scant expiratory wheeze. No retractions. Dry cough audible. HEART: Regular rate and rhythm without murmurs, rubs, gallops. - Related Data Allergies/Adverse Reactions: azithromycin [Azithromycin] Allergy (Severe, Verified 03/29/19 09:12) HIVES, N/V latex Allergy (Intermediate, Verified 03/29/19 09:12) Hives Penicillins Allergy (Mild, Verified 03/29/19 09:12) HIVES ITCHING morphine Allergy (Verified 03/29/19 09:12) Hives Past Medical History - Past Medical History Cardiac Medical History: Reports: Hx Congestive Heart Failure, Hx Hypertension, Hx Pulmonary Embolism - 2004 Denies: Hx Coronary Artery Disease, Hx Heart Attack Pulmonary Medical History: Reports: Hx Asthma, Hx Bronchitis Denies: Hx COPD, Hx Pneumonia - hx PE Neurological Medical History: Denies: Hx Cerebrovascular Accident, Hx Seizures Renal/ Medical History: Reports: Hx Kidney Stones. Denies: Hx Peritoneal Dialysis Musculoskeltal Medical History: Reports Hx Arthritis, Reports Hx Musculoskeletal Deformity - chronic back pain Past Surgical History: Reports: Hx Section - x3, Hx Kidney (Renal Surgery) - stent and removal - Immunizations Immunizations up to date: Yes Hx Diphtheria, Pertussis, Tetanus Vaccination: Yes History of Influenza Vaccine for 05/2017 - 10/2017 Season: No Physical Exam - Vital signs Vitals: Temp Pulse Resp BP Pulse Ox 97.8 F 81 16 189/101 H 100 05/27/19 11:01 05/27/19 11:01 05/27/19 11:01 05/27/19 11:01 05/27/19 11:01 Course - Vital Signs Vital signs: Temp Pulse Resp BP Pulse Ox 97.8 F 81 16 189/101 H 100 05/27/19 11:01 05/27/19 11:01 05/27/19 11:01 05/27/19 11:01 05/27/19 11:01 Doctor's Discharge - Discharge Referrals: NICCI CAMEJO MD [Primary Care Provider] - Follow up as needed
--- NOTE | 2019-05-27 12:28 | RADIOLOGY REPORT (SQ) ---
EXAM DESCRIPTION: CHEST 2 VIEWS COMPLETED DATE/TIME: 05/27/2019 11:40 am REASON FOR STUDY: cough COMPARISON: 04/04/2019 EXAM PARAMETERS: NUMBER OF VIEWS: two views TECHNIQUE: Digital Frontal and Lateral radiographic views of the chest acquired. RADIATION DOSE: NA LIMITATIONS: none FINDINGS: LUNGS AND PLEURA: No opacities, masses or pneumothorax. No pleural effusion. MEDIASTINUM AND HILAR STRUCTURES: No masses or contour abnormalities. HEART AND VASCULAR STRUCTURES: Heart normal size. No evidence for failure. Aortic atherosclerosis. BONES: No acute findings. HARDWARE: None in the chest. OTHER: No other significant finding. IMPRESSION: No focal airspace disease or other evidence of acute cardiopulmonary process. TECHNICAL DOCUMENTATION: JOB ID: [id number] [employer]- All Rights Reserved Reading location - IP/workstation name: [email or web address]
[2019-05-27] MEDS ORDERED: PREDNISONE 20 MG TABLET PO ONE (12:32)
--- NOTE | 2019-05-27 12:39 | ER Document Report ---
HPI - HPI Patient complains to provider of: Cough Time Seen by Provider: 05/27/19 11:02 Onset: Other - 3 weeks Pain Level: 3 Context: Patient presents complaining of productive cough for the past 3 weeks with wheezing. Patient complains of body aches as well and diarrhea. Patient reports recent sick contacts. Associated Symptoms: Nonproductive cough, Diarrhea Exacerbated by: Denies Relieved by: Denies Similar symptoms previously: No Recently seen / treated by doctor: No - ROS ROS below otherwise negative: Yes Systems Reviewed and Negative: Yes All other systems reviewed and negative - CONSTITUTIONAL Constitutional: DENIES: Fever, Chills - EENT EENT: REPORTS: Sore Throat - RESPIRATORY Respiratory: REPORTS: Coughing - GASTROINTESTINAL Gastrointestinal: REPORTS: Diarrhea - REPRODUCTIVE Reproductive: DENIES: : - DERM Skin Color: Normal Skin Problems: None Past Medical History - General Information source: Patient - Social History Smoking Status: Never Smoker Chew tobacco use (# tins/day): No Frequency of alcohol use: Rare Drug Abuse: None Occupation: None Family History: Arthritis, Malignancy, CAD, CVA, Hyperlipidemia, Hypertension, Reviewed & Not Pertinent Patient has suicidal ideation: No Patient has homicidal ideation: No - Past Medical History Cardiac Medical History: Reports: Hx Congestive Heart Failure, Hx Heart Attack, Hx Hypertension, Hx Pulmonary Embolism - 2003 Denies: Hx Coronary Artery Disease Pulmonary Medical History: Reports: Hx Asthma, Hx Bronchitis Denies: Hx COPD, Hx Pneumonia - hx PE Neurological Medical History: Denies: Hx Cerebrovascular Accident, Hx Seizures Renal/ Medical History: Reports: Hx Kidney Stones. Denies: Hx Peritoneal Dialysis Musculoskeletal Medical History: Reports Hx Arthritis, Reports Hx Musculoskeletal Deformity - chronic back pain Past Surgical History: Reports: Hx Section - x3, Hx Kidney (Renal Surgery) - stent and removal - Immunizations Immunizations up to date: Yes Hx Diphtheria, Pertussis, Tetanus Vaccination: Yes Vertical Provider Document - CONSTITUTIONAL Agree With Documented VS: Yes Exam Limitations: No Limitations General Appearance: WD/WN, No Apparent Distress - INFECTION CONTROL TRAVEL OUTSIDE OF THE [place] IN LAST 30 DAYS: No - HEENT HEENT: Atraumatic, Normocephalic. negative: Pharyngeal Exudate, Pharyngeal Tenderness, Pharyngeal Erythema, Tympanic Membrane Red, Tympanic Membrane Bulging Notes: Clear rhinorrhea - NECK Neck: Normal Inspection, Supple. negative: Lymphadenopathy-Left, Lymphadenopathy-Right - RESPIRATORY Respiratory: No Respiratory Distress, Chest Non-Tender, Wheezing - CARDIOVASCULAR Cardiovascular: Regular Rate, Regular Rhythm, No Murmur - BACK Back: Normal Inspection - MUSCULOSKELETAL/EXTREMETIES Musculoskeletal/Extremeties: MAEW - NEURO Level of Consciousness: Awake, Alert, Appropriate Motor/Sensory: No Motor Deficit - DERM Integumentary: Warm, Dry, No Rash Course - Re-evaluation Re-evalutation: 05/27/19 12:38 No evidence for pneumonia. Will treat for URI with asthma exacerbation at this time. Patient nontoxic in appearance. - Vital Signs Vital signs: Temp Pulse Resp BP Pulse Ox 97.8 F 81 16 189/101 H 100 05/27/19 11:01 05/27/19 11:01 05/27/19 11:01 05/27/19 11:01 05/27/19 11:01 Discharge - Discharge Clinical Impression: Upper respiratory infection Qualifiers: URI type: unspecified URI Qualified Code(s): J06.9 - Acute upper respiratory infection, unspecified Asthma Qualifiers: Asthma severity: unspecified severity Asthma persistence: unspecified Asthma complication type: unspecified Qualified Code(s): J45.909 - Unspecified asthma, uncomplicated Condition: Stable Disposition: HOME, SELF-CARE Instructions: Asthma ([facility]), Inhaled Bronchodilators ([facility]), Steroid Medication, Upper Respiratory Illness ([facility]) Additional Instructions: Return immediately for any new or worsening symptoms Followup with your primary care provider, call tomorrow to make a followup appointment Prescriptions: Benzonatate [Tessalon Perle 100 mg Capsule] 100 mg PO Q8HP PRN #20 cap PRN Reason: Prednisone [Deltasone 20 mg Tablet] 3 tab PO DAILY 5 Days tablet Albuterol Sulfate [Ventolin 0.083% Neb 2.5 mg/3 ml Ampul] 1 vial NEB Q4 PRN #30 vial PRN Reason: Referrals: NICCI CAMEJO MD [Primary Care Provider] - Follow up tomorrow
[2019-05-27 13:12] VITALS: BP 188/94
== END 2019-05-27 13:12 | disposition home or self-care (01) ==
LOC: ER 10:32
DX: J45.909 Unspecified asthma, uncomplicated (principal); J06.9 Acute upper respiratory infection, unspecified; M79.10 Myalgia, unspecified site; R19.7 Diarrhea, unspecified; I50.9 Heart failure, unspecified; I11.0 Hypertensive heart disease with heart failure; I25.2 Old myocardial infarction; Z86.711 Personal history of pulmonary embolism; Z87.442 Personal history of urinary calculi
CPT/HCPCS: 71046; J7512; J7620; 94640; 99283

== ENCOUNTER 2019-05-27 22:23 | Emergency (ER) | payer MEDICAID ==
[2019-05-27] MEDS ORDERED: ASPIRIN 81 MG TABLET, CHEWABLE PO ONE (22:35)
--- NOTE | 2019-05-27 23:25 | RADIOLOGY REPORT (SQ) ---
XR CHEST 2 VIEWS 05/27/2019 at 11:14 PM. CLINICAL STATEMENT: cp COMPARISON: 05/27/2019 at 12:01 PM. FINDINGS: Cardiomediastinal silhouette is within normal limits. There is no focal lung consolidation or pleural effusion. No evidence of pulmonary edema or pneumothorax. IMPRESSION: No acute cardiopulmonary disease.
[2019-05-27] MEDS ORDERED: IPRATROPIUM/ALBUTEROL 0.5-2.5 MG/3 ML AMPUL NEB ONE (23:32)
--- NOTE | 2019-05-27 23:37 | ER Document Report ---
ED Medical Screen (RME) - General Chief Complaint: Shortness Of Breath Stated Complaint: CHEST PAIN Time Seen by Provider: 05/27/19 23:29 Primary Care Provider: NICCI CAMEJO MD [Primary Care Provider] - Follow up as needed Notes: 48-year-old female, here earlier today and evaluated, diagnosed with upper respiratory infection, she has had a cough with occasional productive cough for the past 3 weeks, she states she also has asthma, she states that she had a breathing treatment here that worked really well, she went home and used her albuterol nebulizer and it did not work as well so she came back. She still com plains of cough and wheezing. She was treated with prednisone earlier today as well. She states she has not been running fevers. She denies any other complaints in triage. TRAVEL OUTSIDE OF THE [place] IN LAST 30 DAYS: No - Related Data Allergies/Adverse Reactions: azithromycin [Azithromycin] Allergy (Severe, Verified 03/29/19 09:12) HIVES, N/V latex Allergy (Intermediate, Verified 03/29/19 09:12) Hives Penicillins Allergy (Mild, Verified 03/29/19 09:12) HIVES ITCHING morphine Allergy (Verified 03/29/19 09:12) Hives Past Medical History - Social History Chew tobacco use (# tins/day): No Frequency of alcohol use: None Drug Abuse: None - Past Medical History Cardiac Medical History: Reports: Hx Congestive Heart Failure, Hx Heart Attack, Hx Hypertension, Hx Pulmonary Embolism - 2003 Denies: Hx Coronary Artery Disease Pulmonary Medical History: Reports: Hx Asthma, Hx Bronchitis Denies: Hx COPD, Hx Pneumonia - hx PE Neurological Medical History: Denies: Hx Cerebrovascular Accident, Hx Seizures Renal/ Medical History: Reports: Hx Kidney Stones. Denies: Hx Peritoneal Dialysis Musculoskeltal Medical History: Reports Hx Arthritis, Reports Hx Musculoskeletal Deformity - chronic back pain Past Surgical History: Reports: Hx Section - x3, Hx Kidney (Renal Surgery) - stent and removal - Immunizations Immunizations up to date: Yes Hx Diphtheria, Pertussis, Tetanus Vaccination: Yes History of Influenza Vaccine for 05/2017 - 10/2017 Season: No Physical Exam - Vital signs Vitals: Temp Pulse Resp BP 98.0 F 91 18 168/93 H 05/27/19 22:48 05/27/19 22:48 05/27/19 22:48 05/27/19 22:48 - General General appearance: Appears well In distress: None - Respiratory Respiratory status: No respiratory distress Breath sounds: Decreased air movement, Wheezing Course - Re-evaluation Re-evalutation: Patient had chest pain protocol initiated in triage, she had already been given aspirin when I saw her, on my evaluation patient is only complaining of pain with cough in her chest, she does have some scattered expiratory wheezes but good lung sounds, no hypoxia, no distress. She is requesting a DuoNeb. I have greeted and performed a rapid initial assessment of this patient. A comprehensive ED assessment and evaluation of the patient, analysis of test resu lts and completion of the medical decision making process will be conducted by additional ED providers. - Vital Signs Vital signs: Temp Pulse Resp BP Pulse Ox 98.0 F 91 18 168/93 H 97 05/27/19 22:48 05/27/19 22:48 05/27/19 22:48 05/27/19 22:48 05/27/19 23:30 Doctor's Discharge - Discharge Referrals: NICCI CAMEJO MD [Primary Care Provider] - Follow up as needed
[2019-05-28] MEDS ORDERED: DOXYCYCLINE HYCLATE 100 MG TABLET PO ONE (02:12)
[2019-05-28 02:16] VITALS: BP 171/89
--- NOTE | 2019-05-28 02:17 | ER Document Report ---
ED Respiratory Problem - General Chief Complaint: Shortness Of Breath Stated Complaint: cough Time Seen by Provider: 05/27/19 23:29 Primary Care Provider: NICCI CAMEJO MD [Primary Care Provider] - Follow up as needed Notes: 48-year-old female, here earlier today and evaluated, diagnosed with upper respiratory infection, she has had a cough with occasional productive cough for the past 3 weeks, she states she also has asthma, she states that she had a breathing treatment here that worked really well, she went home and used her albuterol nebulizer and it did not work as well so she came back. She still complains of cough and wheezing. She was treated with prednisone earlier today as well. She states she has not been running fevers. She denies any other complaints in triage. TRAVEL OUTSIDE OF THE [place] IN LAST 30 DAYS: No - Related Data Allergies/Adverse Reactions: azithromycin [Azithromycin] Allergy (Severe, Verified 03/29/19 09:12) HIVES, N/V latex Allergy (Intermediate, Verified 03/29/19 09:12) Hives Penicillins Allergy (Mild, Verified 03/29/19 09:12) HIVES ITCHING morphine Allergy (Verified 03/29/19 09:12) Hives Past Medical History - General Information source: Patient - Social History Smoking Status: Never Smoker Chew tobacco use (# tins/day): No Frequency of alcohol use: None Drug Abuse: None Lives with: Family Family History: Arthritis, Malignancy, CAD, CVA, Hyperlipidemia, Hypertension, Reviewed & Not Pertinent Patient has suicidal ideation: No Patient has homicidal ideation: No - Past Medical History Cardiac Medical History: Reports: Hx Congestive Heart Failure, Hx Heart Attack, Hx Hypertension, Hx Pulmonary Embolism - 2003 Denies: Hx Coronary Artery Disease Pulmonary Medical History: Reports: Hx Asthma, Hx Bronchitis Denies: Hx COPD, Hx Pneumonia - hx PE Neurological Medical History: Denies: Hx Cerebrovascular Accident, Hx Seizures Renal/ Medical History: Reports: Hx Kidney Stones. Denies: Hx Peritoneal Dialysis Musculoskeletal Medical History: Reports Hx Arthritis, Reports Hx Musculoskeletal Deformity - chronic back pain Past Surgical History: Reports: Hx Section - x3, Hx Kidney (Renal Surgery) - stent and removal - Immunizations Immunizations up to date: Yes Hx Diphtheria, Pertussis, Tetanus Vaccination: Yes Review of Systems - Review of Systems Constitutional: No symptoms reported EENT: No symptoms reported Cardiovascular: No symptoms reported Respiratory: See HPI Gastrointestinal: No symptoms reported Genitourinary: No symptoms reported Female Genitourinary: No symptoms reported Musculoskeletal: No symptoms reported Skin: No symptoms reported Hematologic/Lymphatic: No symptoms reported Neurological/Psychological: No symptoms reported Physical Exam - Vital signs Vitals: Temp Pulse Resp BP 98.0 F 91 18 168/93 H 05/27/19 22:48 05/27/19 22:48 05/27/19 22:48 05/27/19 22:48 - Notes Notes: GENERAL: Alert, interacts well. No acute distress. HEAD: Normocephalic, atraumatic. EYES: Pupils equal, round, and reactive to light. Extraocular movements intact. ENT: Oral mucosa moist, tongue midline. Oropharynx unremarkable. Airway patent. Mild nasal congestion without tender sinuses. Ears normal. NECK: Full range of motion. Supple. Trachea midline. LUNGS: Clear to auscultation bilaterally, no wheezes, rales, or rhonchi. No respiratory distress. Occasional coughing episodes. HEART: Regular rate and rhythm. No murmur ABDOMEN: Soft, non-tender. Non-distended. Bowel sounds present in all 4 quadrants. GENITOURINARY: Deferred EXTREMITIES: Moves all 4 extremities spontaneously. No edema, normal radial and dorsalis pedis pulses bilaterally. No cyanosis. BACK: no cervical, thoracic, lumbar midline tenderness. NEUROLOGICAL: Alert and oriented x3. Normal speech. Cranial nerves II through XII grossly intact. PSYCH: Normal affect, normal mood. SKIN: Warm, dry, normal turgor. No rashes or lesions noted. Course - Re-evaluation Re-evalutation: Patient was leaving when I entered the room to reevaluate her after seeing her in triage. She states her breathing is completely improved after DuoNeb and she does not want to stay any longer. I did asked patient to stay so we could figure out what is best for her, she did consent. Chest x-ray unremarkable. EKG without acute abnormality. There are T wave inversions laterally but these are not new. Lead placement was not ideal. Patient telling me chest pain is only with cough. I discussed trying to get patient's treatment at home more effective, she will continue prednisone, be given a spacer and inhaler, and now she is requesting antibiotics. She has been coughing persistently and she states now she is coughing up yellowish mucus. She is not febrile or hypoxic. Her lungs are clear on reevaluation. She is allergic to azithromycin. She will be placed on doxycycline for productive cough, take the steroids, follow-up with primary care, and return if she worsens in any way. Patient states satisfaction and appreciation. - Vital Signs Vital signs: Temp Pulse Resp BP Pulse Ox 98.0 F 91 21 H 171/89 H 100 05/27/19 22:48 05/27/19 22:48 05/28/19 02:01 05/28/19 02:01 05/28/19 02:01 Discharge - Discharge Clinical Impression: Productive cough Upper respiratory infection Qualifiers: URI type: unspecified URI Qualified Code(s): J06.9 - Acute upper respiratory infection, unspecified Condition: Stable Disposition: HOME, SELF-CARE Additional Instructions: Your evaluation is consistent with bronchitis, and upper respiratory infection, however because your cough is becoming more productive we have placed him on antibiotics to prevent developing pneumonia. Use your prednisone, albuterol with a spacer, Tessalon for cough, drink plenty fluids and rest. Follow-up with primary care. Come back if you are worse including spiking fever, difficulty breathing, or any other concerning or worsening symptoms. Prescriptions: Doxycycline Hyclate 100 mg PO BID #14 capsule Forms: Elevated Blood Pressure Referrals: NICCI CAMEJO MD [Primary Care Provider] - Follow up as needed
--- NOTE | 2019-05-28 20:52 | EKG REPORT ---
SEVERITY:- ABNORMAL ECG - SINUS RHYTHM FIRST DEGREE AV BLOCK PROBABLE LEFT ATRIAL ABNORMALITY BORDERLINE LEFT AXIS DEVIATION ABNORMAL T, CONSIDER ISCHEMIA, LATERAL LEADS : Confirmed by: Maria R Pitt MD 28-May-2019 20:51:42
== END 2019-05-28 02:23 | disposition home or self-care (01) ==
LOC: ER 22:23
DX: J06.9 Acute upper respiratory infection, unspecified (principal); R06.02 Shortness of breath; I50.9 Heart failure, unspecified; I11.0 Hypertensive heart disease with heart failure; Z88.3 Allergy status to other anti-infective agents; Z91.040 Latex allergy status; Z88.6 Allergy status to analgesic agent; Z88.0 Allergy status to penicillin; I25.2 Old myocardial infarction; Z86.711 Personal history of pulmonary embolism
CPT/HCPCS: 93005; 71046; 93010; J3490; J7620

== ENCOUNTER 2019-06-04 10:31 | Observation (INO) | payer MEDICAID ==
--- NOTE | 2019-06-04 11:02 | RADIOLOGY REPORT (SQ) ---
EXAM DESCRIPTION: CT HEAD WITHOUT COMPLETED DATE/TIME: 06/04/2019 10:41 am REASON FOR STUDY: stroke like symptoms COMPARISON: 06/20/2014 TECHNIQUE: Axial images acquired through the brain without intravenous contrast. Images reviewed wi th bone, brain and subdural windows. Additional sagittal and coronal reconstructions were generated. Images stored on PACS. All CT scanners at this facility use dose modulation, iterative reconstruction, and/or weight based d osing when appropriate to reduce radiation dose to as low as reasonably achievable (ALARA). [facility]: Dose Right [facility]: CareDose [facility]: Dose Right [facility]: Teradose 4D [facility]: Smart MonoSphere RADIATION DOSE: CT Rad equipment meets quality standard of care and radiation dose reduction techniq ues were employed. CTDIvol: 48.6 mGy. DLP: 904 mGy-cm. mGy. LIMITATIONS: None. FINDINGS: VENTRICLES: Normal size and contour. CEREBRUM: No masses. No hemorrhage. No midline shift. No evidence for acute infarction. Normal gra y/white matter differentiation. No areas of low density in the white matter. CEREBELLUM: No masses. No hemorrhage. No alteration of density. No evidence for acute infarction. EXTRAAXIAL SPACES: No fluid collections. No masses. ORBITS AND GLOBE: No intra- or extraconal masses. Normal contour of globe without masses. CALVARIUM: No fracture. PARANASAL SINUSES: No fluid or mucosal thickening. SOFT TISSUES: No mass or hematoma. OTHER: No other significant finding. IMPRESSION: No acute intracranial pathology. EVIDENCE OF ACUTE STROKE: NO. COMMENT: Quality ID # [id number]: Final reports with documentation of one or more dose reduction techniques (e.g., Automated exposure control, adjustment of the mA and/or kV according to patient size, use of iterative reconstruction technique) TECHNICAL DOCUMENTATION: JOB ID: [id number] [employer]- All Rights Reserved Reading location - IP/workstation name: [email or web address]
[2019-06-04 11:47] LABS: INTERNATIONAL RATION (INR) 0.96; PROTHROMBIN TIME 12.8 SEC (11.4-15.4)
[2019-06-04 12:07] LABS: ABSOLUTE BASOPHILS # (AUTO) 0.1 10^3/uL (0.0-0.2); ABSOLUTE EOSINOPHILS # (AUTO) 0.2 10^3/uL (0.0-0.6); ABSOLUTE LYMPHOCYTES (AUTO) 3.1 10^3/uL (0.5-4.7); ABSOLUTE MONOCYTES (AUTO) 0.4 10^3/uL (0.1-1.4); ABSOLUTE NEUT (AUTO) 8.1 10^3/uL (1.7-8.2); BASOPHILS % (AUTO) 0.5 % (0-2); EOSINOPHILS % (AUTO) 1.7 % (0-6); HEMATOCRIT 37.8 % (36.0-47.0); HEMOGLOBIN 12.6 g/dL (12.0-15.5); LYMPHOCYTES % (AUTO) 26.3 % (13-45); MEAN CORPUSCULAR HEMOGLOBIN 29.1 pg (27.0-33.4); MEAN CORPUSCULAR HGB CONC 33.3 g/dL (32.0-36.0); MEAN CORPUSCULAR VOLUME 88 fl (80-97); MONOCYTES % (AUTO) 3.3 % (3-13); PLATELET COUNT 309 10^3/uL (150-450); RED BLOOD COUNT 4.31 10^6/uL (3.72-5.28); RED CELL DISTRIBUTION WIDTH 14.7 % (11.5-14.0); SEGMENTED NEUTROPHILS % (AUTO) 68.2 % (42-78); TOTAL CELLS COUNTED % (AUTO) 100 %; WHITE BLOOD COUNT 11.9 10^3/uL (4.0-10.5)
[2019-06-04 12:20] LABS: ALBUMIN 3.9 g/dL (3.5-5.0); ALKALINE PHOSPHATASE 67 U/L (38-126); ANION GAP 11 (5-19); ASPARTATE AMINO TRANSFERASE 30 U/L (14-36); BILIRUBIN,DIRECT 0.3 mg/dL (0.0-0.4); BILIRUBIN,TOTAL 0.5 mg/dL (0.2-1.3); BLOOD UREA NITROGEN 19 mg/dL (7-20); CALCIUM 9.6 mg/dL (8.4-10.2); CARBON DIOXIDE 26 mmol/L (22-30); CHLORIDE 102 mmol/L (98-107); CREATINE KINASE 88 U/L (30-135); GLUCOSE 143 mg/dL (75-110)
[2019-06-04] MEDS ORDERED: LABETALOL HCL INJ 20 MG/4 ML DISP.SYRIN IV ONE (12:28)
[2019-06-04 12:38] LABS: CREATINE KINASE MB 0.46 ng/mL (<4.55)
[2019-06-04 12:40] LABS: TROPONIN I < 0.012 ng/mL
--- NOTE | 2019-06-04 13:24 | EKG REPORT ---
SEVERITY:- ABNORMAL ECG - SINUS RHYTHM LVH BY VOLTAGE ABNORMAL T, CONSIDER ISCHEMIA, LATERAL LEADS : Confirmed by: Stanford Segura MD 04-Jun-2019 13:24:36
[2019-06-04] MEDS ORDERED: ACETAMINOPHEN 325 MG TABLET PO ONE (13:54)
[2019-06-04] MEDS ORDERED: KETOROLAC TROMETHAMINE INJ/PF 30 MG/1 ML SDV IV ONE (13:54)
--- NOTE | 2019-06-04 14:15 | RADIOLOGY REPORT (SQ) ---
EXAM DESCRIPTION: CHEST SINGLE VIEW COMPLETED DATE/TIME: 06/04/2019 1:52 pm REASON FOR STUDY: stroke like symptoms COMPARISON: None. EXAM PARAMETERS: NUMBER OF VIEWS: One view. TECHNIQUE: Single frontal radiographic view of the chest acquired. RADIATION DOSE: NA LIMITATIONS: None. FINDINGS: The cardiomediastinal silhouette and pulmonary vasculature are within normal limits given the low inspiratory lung volumes. There is no consolidation, pleural effusion or pneumothorax. Ther e is no acute abnormality of the imaged osseous structures. IMPRESSION: No acute cardiopulmonary process. TECHNICAL DOCUMENTATION: JOB ID: [id number] [employer]- All Rights Reserved Reading location - IP/workstation name: [email or web address]
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
[2019-06-04] MEDS ORDERED: ASPIRIN 325 MG TABLET PO ONE (14:41)
[2019-06-04] MEDS ORDERED: OXYCODONE-ACETAMINOPHEN 5-325 MG TABLET PO PRN (18:23)
[2019-06-04] MEDS ORDERED: IPRATROPIUM/ALBUTEROL 0.5-2.5 MG/3 ML AMPUL NEB PRN (18:23)
[2019-06-04] MEDS ORDERED: ACETAMINOPHEN 325 MG TABLET PO PRN (18:23)
[2019-06-04] MEDS ORDERED: TEMAZEPAM 7.5 MG CAPSULE PO PRN (18:23)
[2019-06-04] MEDS ORDERED: ONDANSETRON HCL INJ/PF 4 MG/2 ML SDV IV PRN (18:23)
[2019-06-04 19:36] VITALS: BP 110/70
--- NOTE | 2019-06-04 20:01 | H&P/Discharge Summary ---
Discharge Summary Admission Date/PCP: 06/04/19 15:38 NICCI CAMEJO MD Discharge Date: 06/04/19 - Left AMA Resuscitation Status: Full Code - Discharge Diagnosis (1) TIA (transient ischemic attack) Is this a current diagnosis for this admission?: Yes (2) Hypertensive emergency Is this a current diagnosis for this admission?: Yes (3) Obesity Is this a current diagnosis for this admission?: Yes (4) Hyperlipidemia Is this a current diagnosis for this admission?: Yes (5) Diabetes Is this a current diagnosis for this admission?: Yes Home Medications: Albuterol Sulfate [Proair Hfa Inhalation Aerosol 8.5 gm Mdi] 2 puff IH Q8 06/04/19 Albuterol Sulfate [Ventolin 0.083% Neb 2.5 mg/3 ml Ampul] 1 vial NEB ASDIR PRN 06/04/19 Alprazolam [Xanax] 2 mg PO Q8 06/04/19 Amlodipine Besylate [Norvasc 10 mg Tablet] 10 mg PO DAILY 06/04/19 Captopril [Capoten 100 mg Tablet] 100 mg PO Q12 06/04/19 Doxycycline Hyclate [Vibramycin 100 mg Tablet] 100 mg PO BID 06/04/19 Fluticasone Propionate [Flovent Hfa 110 Mcg Inhalation Aerosol 12 gm] 2 puff IH TID 06/04/19 Oxycodone HCl/Acetaminophen [Percocet 10-325 Mg Tablet] 1 each PO Q8 06/04/19 Allergies/Adverse Reactions: azithromycin [Azithromycin] Allergy (Severe, Verified 03/29/19 09:12) HIVES, N/V latex Allergy (Intermediate, Verified 03/29/19 09:12) Hives Penicillins Allergy (Mild, Verified 03/29/19 09:12) HIVES ITCHING morphine Allergy (Verified 03/29/19 09:12) Hives History of Present Illness Admission Date/PCP: 06/04/19 15:38 NICCI CAMEJO MD History of Present Illness: MELO HARRINGTON is a 48 year old female With past medical history of self- reported TIAs, hypertension, obesity, presenting to ED with very inconsistent h istory. She was brought in by EMS who reported that she had safely pulled over and was noted to be vomiting, en-route to the hospital started complaining of not seeing, having spots in front of her vision. While in ED she was reporting waxing and waning of her neurological symptoms, she was complaining of dysarthria and aphasia to the ED physician but then noted to be completely asymptomatic when talking to family . In ED she was noted to be very hypertensive and was started on labetalol which brought down her pb. CT head was done which was negative for any acute finding. Hospitalist was consulted for further workup into reported neurological symptoms. On my encounter patient resting comfortably in bed and denying any focal neurological symptoms and on physical examination she is totally non focal and alert and oriented x 4. She is reporting above symptoms to have occurred in the last several days. She was notified that her pressure was too high on admission and she my have had hypertensive emergencies explaining the above neurological symptoms and vomiting or she may have had TIA. Initial plan was to admit patient in IMCU, start her on aspirin, statins and optimize her blood pressure and also order MRI/MRA head as well as carotid doppler to rule out any underlying neurovascular abnormalities, initially patient agreed with the plan, but later changed her mind stating that she is too clausterphoic and does not want to do MRI/MRA, I informed her that she could be still admitted and worked up for TIA even if she refuses to have MRI/MRA done, she again agreed to stay, but once again she changed her mind and decided to leave [facility]. Past Medical History Cardiac Medical History: Reports: Congestive Heart Failure, Myocardial Infarcti on, Hypertension, Pulmonary Embolism - 2003 Denies: Coronary Artery Disease Pulmonary Medical History: Reports: Asthma, Bronchitis Denies: Chronic Obstructive Pulmonary Disease (COPD), Pneumonia - hx PE Neurological Medical History: Reports: Other - TIA Denies: Seizures Musculoskeltal Medical History: Reports: Arthritis Hematology: Reports: Anemia - hx Past Surgical History Past Surgical History: Reports: Section - x3 Social History Smoking Status: Current Every Day Smoker Frequency of Alcohol Use: None Hx Recreational Drug Use: No Hx Prescription Drug Abuse: No - Advance Directive Resuscitation Status: Full Code Family History Family History: Arthritis, Malignancy, CAD, CVA, Hyperlipidemia, Hypertension, Reviewed & Not Pertinent Parental Family History Reviewed: Yes Children Family History Reviewed: Yes Sibling(s) Family History Reviewed.: Yes Review of Systems Constitutional: ABSENT: chills, fever(s), headache(s), weight gain, weight loss Eyes: ABSENT: visual disturbances Ears: ABSENT: hearing changes Cardiovascular: ABSENT: chest pain, dyspnea on exertion, edema, orthropnea, palpitations Respiratory: ABSENT: cough, hemoptysis Gastrointestinal: ABSENT: abdominal pain, constipation, diarrhea, hematemesis, hematochezia, nausea, vomiting Genitourinary: ABSENT: dysuria, hematuria Musculoskeletal: ABSENT: joint swelling Integumentary: ABSENT: rash, wounds Neurological: ABSENT: abnormal gait, abnormal speech, confusion, dizziness, focal weakness, syncope Psychiatric: ABSENT: anxiety, depression, homidical ideation, suicidal ideation Endocrine: ABSENT: cold intolerance, heat intolerance, polydipsia, polyuria Hematologic/Lymphatic: ABSENT: easy bleeding, easy bruising Physical Exam Vital Signs: Temp Pulse Resp BP Pulse Ox 87 17 110/70 97 06/04/19 10:34 06/04/19 19:01 06/04/19 19:01 06/04/19 19:01 Intake & Output 06/03/19 06/04/19 06/05/19 06:59 06:59 06:59 Weight 108.9 kg General appearance: PRESENT: obese Head exam: PRESENT: atraumatic, normocephalic Eye exam: PRESENT: conjunctiva pink, EOMI, PERRLA. ABSENT: scleral icterus Ear exam: PRESENT: normal external ear exam Mouth exam: PRESENT: moist, tongue midline Neck exam: ABSENT: carotid bruit, JVD, lymphadenopathy, thyromegaly Respiratory exam: PRESENT: clear to auscultation karol. ABSENT: rales, rhonchi, wheezes Cardiovascular exam: PRESENT: RRR. ABSENT: diastolic murmur, rubs, systolic murmur Pulses: PRESENT: normal dorsalis pedis pul Vascular exam: PRESENT: normal capillary refill GI/Abdominal exam: PRESENT: normal bowel sounds, soft. ABSENT: distended, guarding, mass, organolmegaly, rebound, tenderness Rectal exam: PRESENT: deferred Extremities exam: PRESENT: full ROM. ABSENT: calf tenderness, clubbing, pedal edema Neurological exam: PRESENT: alert, awake, oriented to person, oriented to place, oriented to time, oriented to situation, CN II-XII grossly intact. ABSENT: motor sensory deficit Psychiatric exam: PRESENT: appropriate affect, normal mood. ABSENT: homicidal ideation, suicidal ideation Skin exam: PRESENT: dry, intact, warm. ABSENT: cyanosis, rash Results Laboratory Results: 06/04/19 11:43 06/04/19 11:31 06/04/19 06/04/19 11:31 11:43 WBC 11.9 H RBC 4.31 Hgb 12.6 Hct 37.8 MCV 88 MCH 29.1 MCHC 33.3 RDW 14.7 H Plt Count 309 Seg Neutrophils % 68.2 Sodium 139.1 Potassium 4.0 Chloride 102 Carbon Dioxide 26 Anion Gap 11 BUN 19 Creatinine 0.52 Est GFR ( Amer) > 60 Glucose 143 H Calcium 9.6 Total Bilirubin 0.5 AST 30 Alkaline Phosphatase 67 Total Protein 7.0 Albumin 3.9 06/04/19 06/04/19 11:31 11:43 Creatine Kinase 88 CK-MB (CK-2) 0.46 Troponin I < 0.012 Impressions: Chest X-Ray 06/04/19 10:34 IMPRESSION: No acute cardiopulmonary process. Head CT 06/04/19 10:34 IMPRESSION: No acute intracranial pathology. EVIDENCE OF ACUTE STROKE: NO. Qualifiers PATIENT BEING DISCHARGED WITH ANY OF THE FOLLOWING DIAGNOSIS: No - No Stroke Assessment & Plan - Time Time Spent: 50 to 70 Minutes - Plan Summary Plan Summary: Patient was admitted to [facility], started her on aspirin, statins and ONEIDA, ordered Lipid Panel, A1c, MRI/MRA head as well as carotid doppler to rule out any underlying neurovascular abnormalities, initially patient agreed with the plan, but later changed her mind stating that she is too clausterphoic and does not want to do MRI/MRA, I informed her that she could be still admitted and worked up for TIA even if she refuses to have MRI/MRA done, she again agreed to stay, but once again she changed her mind and decided to leave [facility].
[2019-06-04 20:51] LABS: CHOLESTEROL 203.56 mg/dL (0-200); TRIGLYCERIDES 187 mg/dL (<150)
[2019-06-04 21:01] LABS: DIRECT LDL 137 mg/dL (<100)
[2019-06-04 21:06] LABS: VLDL CHOLESTEROL 37.4 mg/dL (10-31)
[2019-06-04] MEDS ORDERED: CAPTOPRIL 100 MG PO SCH (22:00)
[2019-06-04] MEDS ORDERED: LISINOPRIL 10 MG TABLET PO SCH (22:00)
[2019-06-04] MEDS ORDERED: ALBUTEROL SULFATE HFA (90 MCG/PUFF) 200 PUFF/8.5 GM MDI IH SCH (22:00)
[2019-06-04] MEDS ORDERED: SIMVASTATIN 10 MG TABLET PO SCH (22:00)
[2019-06-05] MEDS ORDERED: PANTOPRAZOLE SODIUM 40 MG TABLET.DR PO SCH (06:00)
[2019-06-05] MEDS ORDERED: ENOXAPARIN SODIUM INJ 40 MG/0.4 ML DISP.SYRIN SUBCUT SCH (10:00)
[2019-06-05] MEDS ORDERED: AMLODIPINE BESYLATE 10 MG TABLET PO SCH (10:00)
[2019-06-05] MEDS ORDERED: ASPIRIN 81 MG TABLET, CHEWABLE PO SCH (10:00)
[2019-06-05] MEDS ORDERED: DOCUSATE SODIUM 100 MG CAPSULE PO SCH (10:00)
== END 2019-06-04 19:42 | disposition left against medical advice (07) ==
LOC: ER 10:31 → INTOOBSV 15:38 → EH 15:38
PROVIDERS: ADMIT Internal Medicine; ATTEND Internal Medicine
DX: G45.9 Transient cerebral ischemic attack, unspecified (principal); I16.1 Hypertensive emergency; E66.9 Obesity, unspecified; E78.5 Hyperlipidemia, unspecified; E11.9 Type 2 diabetes mellitus without complications; I25.2 Old myocardial infarction; J45.909 Unspecified asthma, uncomplicated; M19.90 Unspecified osteoarthritis, unspecified site; F17.200 Nicotine dependence, unspecified, uncomplicated; R51 Headache; H53.9 Unspecified visual disturbance; Z53.29 Procedure and treatment not carried out because of patient's decision for other reasons; Z88.0 Allergy status to penicillin; Z88.6 Allergy status to analgesic agent; Z88.1 Allergy status to other antibiotic agents; Z91.040 Latex allergy status; Z86.711 Personal history of pulmonary embolism; Z86.73 Personal history of transient ischemic attack (TIA), and cerebral infarction without residual deficits; Z82.61 Family history of arthritis; Z82.49 Family history of ischemic heart disease and other diseases of the circulatory system; Z83.438 Family history of other disorder of lipoprotein metabolism and other lipidemia; Z82.3 Family history of stroke
CPT/HCPCS: 93005; 99285; 96374; 96375; 36415; 82553; 82962; 82550; 84443; 85025; 85610; 85730; 80053; 84484; 83036; 80061; 71045; 70450; 93010; J3490 ×2; J1885

== ENCOUNTER 2019-08-05 10:26 | Emergency (ER) | payer MEDICAID ==
--- NOTE | 2019-08-05 10:44 | ER Document Report ---
ED Fall - General Mode of Arrival: Ambulatory Information source: Patient TRAVEL OUTSIDE OF THE [place] IN LAST 30 DAYS: No - HPI Occurred: Other Where: Home - [place], Out[place] Context: Slipped Associated symptoms: None Location of injury/pain: Back, Hip Quality of pain: Sharp Severity: Moderate Pain Level: 4 <TONNY MARY - Last Filed: 08/05/19 10:46> <MELISSA BYRD - Last Filed: 08/05/19 13:13> - General Chief Complaint: Fall Injury Stated Complaint: FALL/BACK, RIGHT LEG PAIN Time Seen by Provider: 08/05/19 10:44 Primary Care Provider: NICCI CAMEJO MD [Primary Care Provider] - Follow up as needed Notes: 49-year-old female presents to ED for complaint of low back and right hip pain. She states she fell down the steps Monday landing on the cement at the bottom. She is on chronic pain management for degenerative disc and other arthritic problems. She states she just wants to make sure nothing is broken. Patient is alert oriented respirations regular nonlabored she is able to walk with a steady gait. (TONNY MARY) - Related data Allergies/Adverse Reactions: azithromycin [Azithromycin] Allergy (Severe, Verified 03/29/19 09:12) HIVES, N/V latex Allergy (Intermediate, Verified 03/29/19 09:12) Hives Penicillins Allergy (Mild, Verified 03/29/19 09:12) HIVES ITCHING morphine Allergy (Verified 03/29/19 09:12) Hives Past Medical History - General Information source: Patient - Social History Smoking Status: Former Smoker Frequency of alcohol use: Rare Drug Abuse: None Lives with: Family Family History: Arthritis, Malignancy, CAD, CVA, Hyperlipidemia, Hypertension, Reviewed & Not Pertinent Patient has suicidal ideation: No Patient has homicidal ideation: No - Past Medical History Cardiac Medical History: Reports: Hx Congestive Heart Failure, Hx Heart Attack, Hx Hypertension, Hx Pulmonary Embolism - 2003 Pulmonary Medical History: Reports: Hx Asthma, Hx Bronchitis, Hx Pneumonia Neurological Medical History: Reports: Hx Cerebrovascular Accident - Possible stroke 2 Endocrine Medical History: Reports: None Renal/ Medical History: Reports: Hx Kidney Stones Malignancy Medical History: Reports: None GI Medical History: Reports: None Musculoskeletal Medical History: Reports Hx Arthritis, Reports Hx Musculoskeletal Deformity - chronic back pain Skin Medical History: Reports None Psychiatric Medical History: Reports: Hx Anxiety, Hx Obsessive Compulsive Disorder Traumatic Medical History: Reports: None Infectious Medical History: Reports: None Past Surgical History: Reports: Hx Section - x3, Hx Kidney (Renal Surgery) - stent and removal - Immunizations Immunizations up to date: Yes Hx Diphtheria, Pertussis, Tetanus Vaccination: Yes - 2016 <TONNY MARY - Last Filed: 08/05/19 10:46> Review of Systems - Review of Systems Constitutional: No symptoms reported EENT: No symptoms reported Cardiovascular: No symptoms reported Respiratory: No symptoms reported Gastrointestinal: No symptoms reported Genitourinary: No symptoms reported Female Genitourinary: No symptoms reported Musculoskeletal: Back pain, Other - Right hip pain Skin: No symptoms reported Hematologic/Lymphatic: No symptoms reported Neurological/Psychological: No symptoms reported -: Yes All other systems reviewed and negative <TONNY MARY - Last Filed: 08/05/19 10:46> Physical Exam - Vital signs Interpretation: Normal - General General appearance: Appears well, Alert - HEENT Head: Normocephalic, Atraumatic Eyes: Normal Pupils: PERRL - Respiratory Respiratory status: No respiratory distress Chest status: Nontender Breath sounds: Normal Chest palpation: Normal - Cardiovascular Rhythm: Regular Heart sounds: Normal auscultation Murmur: No - Abdominal Inspection: Normal Distension: No distension Bowel sounds: Normal Tenderness: Nontender Organomegaly: No organomegaly - Back Back: Normal, Tender. No: Deformity/step-off, CVA tenderness, Vertebra tenderness, Scars, Scoliosis, Wounds - Extremities General upper extremity: Normal inspection, Nontender, Normal color, Normal ROM, Normal temperature General lower extremity: Normal inspection, Nontender, Normal color, Normal ROM, Normal temperature, Normal weight bearing. No: Edwin's sign Hip: Tender, Pain with ROM. No: Deformity, Dislocation, Ecchymosis, Instability, Laceration, Unable to bear weight - Neurological Neuro grossly intact: Yes Cognition: Normal Orientation: AAOx4 Raul Coma Scale Eye Opening: Spontaneous Raul Coma Scale Verbal: Oriented Raul Coma Scale Motor: Obeys Commands Raul Coma Scale Total: 15 Speech: Normal Motor strength normal: LUE, RUE, LLE, RLE Sensory: Normal - Psychological Associated symptoms: Normal affect, Normal mood - Skin Skin Temperature: Warm Skin Moisture: Dry Skin Color: Normal <TONNY MARY - Last Filed: 08/05/19 10:46> - Vital signs Vitals: Temp Pulse Resp BP Pulse Ox 98.0 F 75 16 152/83 H 99 08/05/19 10:45 08/05/19 10:45 08/05/19 10:45 08/05/19 10:45 08/05/19 10:45 Course - Diagnostic Test Radiology reviewed: Image reviewed, Reports reviewed <MELISSA BYRD - Last Filed: 08/05/19 13:13> - Re-evaluation Re-evalutation: 08/05/19 13:11 Patient presents with low back pain that radiates into the right leg. Patient suffered a fall 2 days ago. X-rays are unremarkable for any acute bony injury. Patient appears to have a lumbar strain with some mild sciatica. She does have Percocet at home. She does not wish to have any further pain medicine. I will discharge the patient home with back pain precautions. (MELISSA BYRD) - Vital Signs Vital signs: Temp Pulse Resp BP Pulse Ox 98.0 F 75 16 152/83 H 99 08/05/19 10:45 08/05/19 10:45 08/05/19 10:45 08/05/19 10:45 08/05/19 10:45 Discharge <TONNY MARY - Last Filed: 08/05/19 10:46> <MELISSA BYRD - Last Filed: 08/05/19 13:13> - Discharge Clinical Impression: Right sided sciatica Lumbar strain Qualifiers: Encounter type: initial encounter Qualified Code(s): S39.012A - Strain of muscle, fascia and tendon of lower back, initial encounter Condition: Stable Disposition: HOME, SELF-CARE Instructions: Low Back Pain ([facility]), Sciatica ([facility]) Referrals: NICCI CAMEJO MD [Primary Care Provider] - Follow up in 3-5 days
[2019-08-05 10:49] VITALS: BP 152/83
--- NOTE | 2019-08-05 13:02 | RADIOLOGY REPORT (SQ) ---
EXAM DESCRIPTION: HIP RIGHT AP/LATERAL COMPLETED DATE/TIME: 08/05/2019 12:35 pm REASON FOR STUDY: pain low back and right hip and fall COMPARISON: 09/06/2017 NUMBER OF VIEWS: Two views. TECHNIQUE: AP pelvis and additional frog-leg view of the right hip. LIMITATIONS: None. FINDINGS: MINERALIZATION: Normal. RIGHT HIP: No fracture or dislocation. No worrisome bone lesions. Mild osteophytosis. LEFT HIP: No fracture or dislocation. No worrisome bone lesions. Mild osteophytosis. PUBIS AND ISCHIUM: No fracture. PELVIS: No fracture. SACRUM: No fracture or dislocation. No worrisome bone lesions. LOWER LUMBAR SPINE: No fracture or dislocation. No worrisome bone lesions. No significant disc disea se. SOFT TISSUES: Few scattered pelvic phleboliths. OTHER: No other significant finding. IMPRESSION: No evidence of acute bony abnormality of the right hip. COMMENT: Pelvic fractures are often occult on plain radiographs. If high clinical concern for acute bony abnormality CT or MR should be considered. TECHNICAL DOCUMENTATION: JOB ID: [id number]- All Rights Reserved Reading location - IP/workstation name: [email or web address]
--- NOTE | 2019-08-05 13:04 | RADIOLOGY REPORT (SQ) ---
EXAM DESCRIPTION: L SPINE WHOLE COMPLETED DATE/TIME: 08/05/2019 12:35 pm REASON FOR STUDY: pain low back and right hip and fall COMPARISON: None. NUMBER OF VIEWS: Five views including obliques. TECHNIQUE: AP, lateral, oblique, and sacral radiographic images acquired of the lumbar spine. LIMITATIONS: None. FINDINGS: MINERALIZATION: Normal. SEGMENTATION: Normal. No transitional anatomy. ALIGNMENT: Normal. VERTEBRAE: Maintained height. No fracture or worrisome bone lesion. DISCS: Preserved height. Small anterior osteophytes L4-5. POSTERIOR ELEMENTS: Pedicles and facets are intact. No pars defect or posterior arch defects. HARDWARE: None in the spine. PARASPINAL SOFT TISSUES: Normal. PELVIS: Intact as visualized. No fractures or worrisome bone lesions. SI joints intact. OTHER: No other significant finding. IMPRESSION: Mild degenerative changes. TECHNICAL DOCUMENTATION: JOB ID: [id number]- All Rights Reserved Reading location - IP/workstation name: [email or web address]
== END 2019-08-05 13:50 | disposition home or self-care (01) ==
LOC: ER 10:26
DX: S39.012A Strain of muscle, fascia and tendon of lower back, initial encounter (principal); W10.9XXA Fall (on) (from) unspecified stairs and steps, initial encounter; Y92.009 Unspecified place in unspecified non-institutional (private) residence as the place of occurrence of the external cause; M47.9 Spondylosis, unspecified; Z79.891 Long term (current) use of opiate analgesic; M54.41 Lumbago with sciatica, right side; M25.551 Pain in right hip; I10 Essential (primary) hypertension; J45.909 Unspecified asthma, uncomplicated; Z87.891 Personal history of nicotine dependence; Z88.1 Allergy status to other antibiotic agents; Z91.040 Latex allergy status; Z88.0 Allergy status to penicillin; Z88.6 Allergy status to analgesic agent; Z88.5 Allergy status to narcotic agent
CPT/HCPCS: 72110; 99283

== ENCOUNTER 2019-10-29 12:09 | Emergency (ER) | payer MEDICAID ==
--- NOTE | 2019-10-29 12:44 | ER Document Report ---
ED Medical Screen (RME) - General Chief Complaint: Sore Throat Stated Complaint: SORE THROAT/HEADACHE/COUGH Time Seen by Provider: 10/29/19 12:29 Primary Care Provider: NICCI CAMEJO MD [Primary Care Provider] - Follow up as needed Information source: Patient Notes: Patient presents complaining of headache and sore throat that started yesterday. Patient states that she does have memory issues but attributes this to previous TIA that she has had. Patient states that she did take her blood pressure medication this morning. Patient forgetful historian in triage and child has answered parts of the interview for patient. I have greeted and performed a rapid initial assessment of this patient. A comprehensive ED assessment and evaluation of the patient, analysis of test results and completion of the medical decision making process will be conducted by additional ED providers. TRAVEL OUTSIDE OF THE [place] IN LAST 30 DAYS: No - Related Data Allergies/Adverse Reactions: azithromycin [Azithromycin] Allergy (Severe, Verified 03/29/19 09:12) HIVES, N/V latex Allergy (Intermediate, Verified 03/29/19 09:12) Hives Penicillins Allergy (Mild, Verified 03/29/19 09:12) HIVES ITCHING morphine Allergy (Verified 03/29/19 09:12) Hives Past Medical History - Past Medical History Cardiac Medical History: Reports: Hx Congestive Heart Failure, Hx Heart Attack, Hx Hypertension, Hx Pulmonary Embolism - 2003 Denies: Hx Coronary Artery Disease Pulmonary Medical History: Reports: Hx Asthma, Hx Bronchitis, Hx Pneumonia Denies: Hx COPD Neurological Medical History: Reports: Hx Cerebrovascular Accident - Possible stroke 2. Denies: Hx Seizures Renal/ Medical History: Reports: Hx Kidney Stones. Denies: Hx Peritoneal Dialysis Musculoskeltal Medical History: Reports Hx Arthritis, Reports Hx Musculoskeletal Deformity - chronic back pain Psychiatric Medical History: Reports: Hx Anxiety, Hx Obsessive Compulsive Disorder Past Surgical History: Reports: Hx Section - x3, Hx Kidney (Renal Surgery) - stent and removal - Immunizations Immunizations up to date: Yes Hx Diphtheria, Pertussis, Tetanus Vaccination: Yes - 2016 Physical Exam - Vital signs Vitals: Temp Pulse Resp BP Pulse Ox 98.0 F 82 18 218/102 H 98 10/29/19 12:26 10/29/19 12:26 10/29/19 12:26 10/29/19 12:26 10/29/19 12:26 - Neurological Cognition: Short term memory loss [place] Coma Scale Eye Opening: Spontaneous [place] Coma Scale Verbal: Oriented Raul Coma Scale Motor: Obeys Commands [place] Coma Scale Total: 15 Course - Vital Signs Vital signs: Temp Pulse Resp BP Pulse Ox 98.0 F 82 18 218/102 H 98 10/29/19 12:26 10/29/19 12:26 10/29/19 12:26 10/29/19 12:26 10/29/19 12:26 Doctor's Discharge - Discharge Referrals: NICCI CAMEJO MD [Primary Care Provider] - Follow up as needed
--- NOTE | 2019-10-29 13:18 | RADIOLOGY REPORT (SQ) ---
EXAM DESCRIPTION: CT HEAD WITHOUT COMPLETED DATE/TIME: 10/29/2019 1:03 pm REASON FOR STUDY: MILTON, HTN COMPARISON: 06/04/2019. TECHNIQUE: Axial images acquired through the brain without intravenous contrast. Images reviewed wi th bone, brain and subdural windows. Additional sagittal and coronal reconstructions were generated. Images stored on PACS. All CT scanners at this facility use dose modulation, iterative reconstruction, and/or weight based d osing when appropriate to reduce radiation dose to as low as reasonably achievable (ALARA). [facility]: Dose Right [facility]: CareDose [facility]: Dose Right [facility]: Teradose 4D [facility]: [employer] RADIATION DOSE: CT Rad equipment meets quality standard of care and radiation dose reduction techniq ues were employed. CTDIvol: 53.2 mGy. DLP: 1044 mGy-cm. mGy. LIMITATIONS: None. FINDINGS: VENTRICLES: Normal size and contour. CEREBRUM: No masses. No hemorrhage. No midline shift. No evidence for acute infarction. Normal gra y/white matter differentiation. No areas of low density in the white matter. CEREBELLUM: No masses. No hemorrhage. No alteration of density. No evidence for acute infarction. EXTRAAXIAL SPACES: No fluid collections. No masses. ORBITS AND GLOBE: No intra- or extraconal masses. Normal contour of globe without masses. CALVARIUM: No fracture. PARANASAL SINUSES: No fluid or mucosal thickening. SOFT TISSUES: No mass or hematoma. OTHER: No other significant finding. IMPRESSION: NORMAL BRAIN CT WITHOUT CONTRAST. EVIDENCE OF ACUTE STROKE: NO. COMMENT: Quality ID # [id number]: Final reports with documentation of one or more dose reduction techniques (e.g., Automated exposure control, adjustment of the mA and/or kV according to patient size, use of iterative reconstruction technique) TECHNICAL DOCUMENTATION: JOB ID: [id number] 2010 [employer]- All Rights Reserved Reading location - IP/workstation name: [email or web address]
--- NOTE | 2019-10-29 14:02 | ER Document Report ---
ED General - General Chief Complaint: Headache Stated Complaint: SORE THROAT/HEADACHE/COUGH Time Seen by Provider: 10/29/19 12:29 Primary Care Provider: NICCI CAMEJO MD [Primary Care Provider] - Follow up as needed Notes: HPI: 49-year-old female with past medical history as recorded including multiple traumatic brain injuries who presents today stating that she developed last night of sore throat. The sore throat has greatly improved. She states now a headache to the top of her head. She denies any blurry vision, recent traumas, weakness or numbness, vomiting, or any other acute problems. She states she is really here given that her son needs to be evaluated he was also in the room with a different complaint. Given the patient's mild confusion that she has had since the last traumatic brain injury 2-1/2 years ago according to the patient and the son, the son often provides the patient home medications. This includes her blood pressure medications. ROS: See HPI All other review of systems reviewed and otherwise negative Reviewed vital signs and nursing note as charted by RN. PHYSICAL EXAM: CONSTITUTIONAL: Alert and oriented and responds appropriately to questions. Well-appearing; well-nourished HEAD: Normocephalic; atraumatic EYES: PERRL; full extraocular range of motion; no nystagmus ENT: Normal nose; no rhinorrhea; moist mucous membranes; pharynx without lesions noted NECK: Supple without meningismus; non-tender; no cervical lymphadenopathy, no masses CARD: Regular rate and rhythm; no murmurs; symmetric distal pulses RESP: Normal chest excursion without splinting or tachypnea; breath sounds clear and equal bilaterally; no wheezes, no rhonchi, no rales BACK: The back appears normal and is non-tender to palpation EXT: Normal ROM in all joints; non-tender to palpation; no edema SKIN: No acute lesions noted NEURO: CN 2-12 intact; 5/5 bilateral upper and lower extremity strength with sensation intact to light touch PSYCH: The patient's mood and manner are appropriate. Grooming and personal hygiene are appropriate. TRAVEL OUTSIDE OF THE [place] IN LAST 30 DAYS: No - Related Data Allergies/Adverse Reactions: azithromycin [Azithromycin] Allergy (Severe, Verified 03/29/19 09:12) HIVES, N/V latex Allergy (Intermediate, Verified 03/29/19 09:12) Hives Penicillins Allergy (Mild, Verified 03/29/19 09:12) HIVES ITCHING morphine Allergy (Verified 03/29/19 09:12) Hives Past Medical History - General Information source: Patient - Social History Smoking Status: Never Smoker Chew tobacco use (# tins/day): No Frequency of alcohol use: None Drug Abuse: None Family History: Arthritis, Malignancy, CAD, CVA, Hyperlipidemia, Hypertension, Reviewed & Not Pertinent Patient has suicidal ideation: No Patient has homicidal ideation: No - Past Medical History Cardiac Medical History: Reports: Hx Congestive Heart Failure, Hx Heart Attack, Hx Hypertension, Hx Pulmonary Embolism - 2003 Denies: Hx Coronary Artery Disease Pulmonary Medical History: Reports: Hx Asthma, Hx Bronchitis, Hx Pneumonia Denies: Hx COPD Neurological Medical History: Reports: Hx Cerebrovascular Accident - Possible stroke 2. Denies: Hx Seizures Renal/ Medical History: Reports: Hx Kidney Stones. Denies: Hx Peritoneal Dialysis Musculoskeletal Medical History: Reports Hx Arthritis, Reports Hx Musculoskeletal Deformity - chronic back pain Psychiatric Medical History: Reports: Hx Anxiety, Hx Obsessive Compulsive Disorder Past Surgical History: Reports: Hx Section - x3, Hx Kidney (Renal Surgery) - stent and removal - Immunizations Immunizations up to date: Yes Hx Diphtheria, Pertussis, Tetanus Vaccination: Yes - 2016 Physical Exam - Vital signs Vitals: Temp Pulse Resp BP Pulse Ox 98.0 F 82 18 218/102 H 98 10/29/19 12:26 10/29/19 12:26 10/29/19 12:26 10/29/19 12:26 10/29/19 12:26 Course - Re-evaluation Re-evalutation: Given the above history and physical examination, with no focal logical deficits, no sore throat at this time, no pharyngeal erythema or peritonsillar swelling, no neck pain with full range of motion, no blurry vision, we will obtain a CT scan of the head given the patient's traumatic history. Given the lack of any recent trauma, headache to the top of the head, slow onset, no neck pain or stiffness, no fevers, no blurry vision, no temporal erythema or redness, I do believe acute angle-closure glaucoma, temporal arteritis, subarachnoid hemorrhage, acute bacterial meningitis to be extremely unlikely. 10/29/19 14:00 CT scan as recorded. Patient's pain is improved. No intervention has been performed. Still no focal neurological deficits. Repeat blood pressure is pending. Patient has had no chest pain or leg swelling. I had a long discussion with the patient and the patient's son regarding to make sure that the patient takes her blood pressure medications as directed. She does understand these instructions. Patient does have a primary care physician. - Vital Signs Vital signs: Temp Pulse Resp BP Pulse Ox 98.0 F 82 18 218/102 H 98 10/29/19 12:26 10/29/19 12:26 10/29/19 12:26 10/29/19 12:26 10/29/19 12:26 Discharge - Discharge Clinical Impression: Headache Qualifiers: Headache type: unspecified Headache chronicity pattern: unspecified pattern Intractability: not intractable Qualified Code(s): R51 - Headache Condition: Good Disposition: HOME, SELF-CARE Additional Instructions: Come back immediately for any return or worsening pain, change in location or quality of pain, fevers or vomiting, blurry vision, leg swelling or chest pain, or any other acute problems. Please make sure that you take your blood pressure medications as indicated and directed and please make sure that you follow-up with your primary care physician for reassessment. Referrals: NICCI ACMEJO MD [Primary Care Provider] - Follow up as needed
[2019-10-29 14:16] LABS: ABSOLUTE BASOPHILS # (AUTO) 0.1 10^3/uL (0.0-0.2); ABSOLUTE EOSINOPHILS # (AUTO) 0.2 10^3/uL (0.0-0.6); ABSOLUTE LYMPHOCYTES (AUTO) 3.2 10^3/uL (0.5-4.7); ABSOLUTE MONOCYTES (AUTO) 0.4 10^3/uL (0.1-1.4); ABSOLUTE NEUT (AUTO) 4.9 10^3/uL (1.7-8.2); BASOPHILS % (AUTO) 0.6 % (0-2); EOSINOPHILS % (AUTO) 2.3 % (0-6); HEMATOCRIT 40.4 % (36.0-47.0); HEMOGLOBIN 13.8 g/dL (12.0-15.5); LYMPHOCYTES % (AUTO) 36.5 % (13-45); MEAN CORPUSCULAR HEMOGLOBIN 29.7 pg (27.0-33.4); MEAN CORPUSCULAR HGB CONC 34.1 g/dL (32.0-36.0); MEAN CORPUSCULAR VOLUME 87 fl (80-97); MONOCYTES % (AUTO) 4.8 % (3-13); PLATELET COUNT 307 10^3/uL (150-450); RED BLOOD COUNT 4.63 10^6/uL (3.72-5.28); RED CELL DISTRIBUTION WIDTH 14.2 % (11.5-14.0); SEGMENTED NEUTROPHILS % (AUTO) 55.8 % (42-78); TOTAL CELLS COUNTED % (AUTO) 100 %; WHITE BLOOD COUNT 8.9 10^3/uL (4.0-10.5)
[2019-10-29] MEDS ORDERED: AMLODIPINE BESYLATE 10 MG TABLET PO ONE (14:35)
[2019-10-29 14:42] LABS: ANION GAP 7 (5-19); BLOOD UREA NITROGEN 13 mg/dL (7-20); CALCIUM 9.9 mg/dL (8.4-10.2); CARBON DIOXIDE 33 mmol/L (22-30); CHLORIDE 102 mmol/L (98-107); GLUCOSE 91 mg/dL (75-110); POTASSIUM 4.4 mmol/L (3.6-5.0)
[2019-10-29 14:51] VITALS: BP 188/91
== END 2019-10-29 14:52 | disposition home or self-care (01) ==
LOC: ER 12:09
DX: R51 Headache (principal); R41.0 Disorientation, unspecified; J45.909 Unspecified asthma, uncomplicated; I11.0 Hypertensive heart disease with heart failure; I50.9 Heart failure, unspecified; Z79.899 Other long term (current) drug therapy; Z87.820 Personal history of traumatic brain injury; Z88.1 Allergy status to other antibiotic agents; Z91.040 Latex allergy status; Z88.0 Allergy status to penicillin; Z88.6 Allergy status to analgesic agent; Z88.5 Allergy status to narcotic agent; Z82.3 Family history of stroke
CPT/HCPCS: 36415; 70450; 80048; 85025; 87070; 87880; 99284

== ENCOUNTER 2019-12-20 05:10 | Emergency (ER) | payer MEDICAID ==
[2019-12-20] MEDS ORDERED: METOCLOPRAMIDE HCL INJ/PF 10 MG/2 ML SDV IV ONE (06:35)
[2019-12-20] MEDS ORDERED: FENTANYL CITRATE INJ/PF 100 MCG/2 ML AMPUL IV ONE (06:36)
[2019-12-20] MEDS ORDERED: DIPHENHYDRAMINE HCL 50 MG/ML VIAL IV ONE (06:36)
--- NOTE | 2019-12-20 06:43 | ER Document Report ---
ED General - General Chief Complaint: Headache Stated Complaint: HEADACHE, DIZZINESS, NAUSEA, EAR PAIN Time Seen by Provider: 12/20/19 06:20 Primary Care Provider: IRVING CAMEJO MD [Primary Care Provider] - Follow up as needed TRAVEL OUTSIDE OF THE [place] IN LAST 30 DAYS: No - HPI Notes: Chief complaint: Headache HPI: 49-year-old female followed by Dr. 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 Not currently on any anticoagulation. No fever. No trauma. No rashes. No new neurologic deficit. Mild nausea without vomiting. Denies visual symptoms or any problems with swa llowing or speaking. Says she is compliant with her antihypertensive medications. We note that she is chronically taking Percocet for low back pain and says that she takes 3 tablets a day and indicates that this is not giving her any relief of her headache. Patient notes multiple drug allergies including morphine stating this is caused her to break out in hives in the past. - Related Data Allergies/Adverse Reactions: azithromycin [Azithromycin] Allergy (Severe, Verified 12/20/19 05:16) HIVES, N/V latex Allergy (Intermediate, Verified 12/20/19 05:16) Hives Penicillins Allergy (Mild, Verified 12/20/19 05:16) HIVES ITCHING morphine Allergy (Verified 12/20/19 05:16) Hives Home Medications: ASTHMA. PERCOCET Past Medical History - General Information source: Patient, [facility] Records - Social History Smoking Status: Current Every Day Smoker Family History: Arthritis, Malignancy, CAD, CVA, Hyperlipidemia, Hypertension, Reviewed & Not Pertinent Patient has suicidal ideation: No Patient has homicidal ideation: No - Past Medical History Cardiac Medical History: Reports: Hx Congestive Heart Failure, Hx Heart Attack, Hx Hypertension, Hx Pulmonary Embolism - 2003 Denies: Hx Coronary Artery Disease Pulmonary Medical History: Reports: Hx Asthma, Hx Bronchitis, Hx Pneumonia Denies: Hx COPD Neurological Medical History: Reports: Hx Cerebrovascular Accident - Possible stroke 2. Denies: Hx Seizures Renal/ Medical History: Reports: Hx Kidney Stones. Denies: Hx Peritoneal Dialysis Musculoskeletal Medical History: Reports Hx Arthritis, Reports Hx Musculoskeletal Deformity - chronic back pain Psychiatric Medical History: Reports: Hx Anxiety, Hx Obsessive Compulsive Disord er Past Surgical History: Reports: Hx Section - x3, Hx Kidney (Renal Surgery) - stent and removal - Immunizations Immunizations up to date: Yes Hx Diphtheria, Pertussis, Tetanus Vaccination: Yes - 2016 Review of Systems - Review of Systems Notes: Constitutional: Negative for fever. HENT: Negative for sore throat. Denies nasal congestion. Eyes: Negative for visual changes. Cardiovascular: Negative for chest pain. Respiratory: Negative for shortness of breath. Gastrointestinal: Negative for abdominal pain, vomiting or diarrhea. Genitourinary: Negative for dysuria. Musculoskeletal: Negative for back pain. Skin: Negative for rash. Neurological: As per HPI. 10 point ROS negative except as marked above and in HPI. Physical Exam - Vital signs Vitals: Temp Pulse Resp BP Pulse Ox 98.1 F 80 22 H 153/100 H 97 12/20/19 05:14 12/20/19 05:14 12/20/19 05:14 12/20/19 05:14 12/20/19 05:14 - Notes Notes: GENERAL: Well-developed well-nourished appearing in mild discomfort. SKIN: Good turgor no rashes. HEAD: Normocephalic atraumatic. No tenderness to percussion over sinuses. No tenderness or thickening appreciated on palpation over temporal arteries. Pulses are 2+. EYES: PERRLA. EOMI. Conjunctivae and sclerae clear. EARS: CANALS AND TMS CLEAR. NOSE: CLEAR. MOUTH: Moist mucosa. Good dentition. No stridor or edema. No drooling. NECK: Supple. No masses or thyromegaly. No adenopathy. Carotids 2+ without bruits. No JVD. BACK: Symmetrical without tenderness. CHEST: Respirations unlabored. Breath sounds clear and symmetrical. HEART: Regular rhythm. No murmur gallop or rub. ABDOMEN: Moderately obese. Soft nontender without masses, organomegaly or rebound. Bowel sounds normally active. No bruits. GENITALIA: Deferred. EXTREMITIES: No edema. No calf tenderness. Cap refill less than 1.5 seconds. Dorsalis pedis and posterior tibial pulses 3+ and symmetrical. NEUROLOGICAL: GCS 15. Alert and oriented x3. Fluent speech. Cranial nerves II through XII intact. Sensation is intact. Patient has 3/5 motor strength right lower extremity which she says is her baseline. Motor exam is otherwise unremarkable. Finger-nose testing is normal. Normal tone. PSYCHIATRIC: Flat affect. Course - Re-evaluation Re-evalutation: 12/20/19 10:03 Patient was given ketorolac and Reglan IV. Headache resolved with this. Noncontrast head CT unremarkable. Patient felt better and requested discharge which I felt to be appropriate. - Vital Signs Vital signs: Temp Pulse Resp BP Pulse Ox 98.1 F 80 22 H 109/63 97 12/20/19 05:17 12/20/19 05:14 12/20/19 05:14 12/20/19 09:11 12/20/19 05:14 - Laboratory Result Diagrams: 12/20/19 07:00 12/20/19 07:00 Laboratory results interpreted by me: 12/20/19 12/20/19 12/20/19 07:00 07:00 09:23 RDW 15.0 H ESR 41 H Sodium 136.4 L Glucose 125 H Urine Glucose (UA) 50 H Urine Ketones 20 H Urine Ascorbic Acid 20 H - Diagnostic Test Radiology reviewed: Reports reviewed - Unremarkable noncontrast head CT per radiologist. Discharge - Discharge Clinical Impression: Essential hypertension Headache Qualifiers: Headache type: unspecified Headache chronicity pattern: acute headache Intractability: not intractable Qualified Code(s): R51 - Headache Condition: Stable Disposition: HOME, SELF-CARE Instructions: Headache ([facility]) Prescriptions: Hydrochlorothiazide 12.5 mg PO QAM 30 Days #30 tablet Referrals: IRVING CAMEJO MD [Primary Care Provider] - Follow up as needed
[2019-12-20 07:13] LABS: ABSOLUTE EOSINOPHILS # (AUTO) 0.1 10^3/uL (0.0-0.6); ABSOLUTE LYMPHOCYTES (AUTO) 3.3 10^3/uL (0.5-4.7); ABSOLUTE MONOCYTES (AUTO) 0.5 10^3/uL (0.1-1.4); ABSOLUTE NEUT (AUTO) 5.2 10^3/uL (1.7-8.2); BASOPHILS % (AUTO) 0.3 % (0-2); EOSINOPHILS % (AUTO) 1.3 % (0-6); HEMATOCRIT 37.2 % (36.0-47.0); HEMOGLOBIN 12.7 g/dL (12.0-15.5); LYMPHOCYTES % (AUTO) 36.1 % (13-45); MEAN CORPUSCULAR HEMOGLOBIN 29.8 pg (27.0-33.4); MEAN CORPUSCULAR HGB CONC 34.2 g/dL (32.0-36.0); MEAN CORPUSCULAR VOLUME 87 fl (80-97); MONOCYTES % (AUTO) 5.4 % (3-13); PLATELET COUNT 284 10^3/uL (150-450); RED BLOOD COUNT 4.27 10^6/uL (3.72-5.28); SEGMENTED NEUTROPHILS % (AUTO) 56.9 % (42-78); TOTAL CELLS COUNTED % (AUTO) 100 %; WHITE BLOOD COUNT 9.2 10^3/uL (4.0-10.5)
[2019-12-20 07:24] LABS: PARTIAL THROMBOPLASTIN TIME 24.3 SEC (23.5-35.8); PROTHROMBIN TIME 13.2 SEC (11.4-15.4)
[2019-12-20 07:32] LABS: ALBUMIN 3.9 g/dL (3.5-5.0); ALKALINE PHOSPHATASE 63 U/L (38-126); ANION GAP 5 (5-19); ASPARTATE AMINO TRANSFERASE 27 U/L (14-36); BILIRUBIN,TOTAL 0.3 mg/dL (0.2-1.3); BLOOD UREA NITROGEN 16 mg/dL (7-20); CALCIUM 9.3 mg/dL (8.4-10.2); CARBON DIOXIDE 30 mmol/L (22-30); CHLORIDE 101 mmol/L (98-107); GLUCOSE 125 mg/dL (75-110); POTASSIUM 4.3 mmol/L (3.6-5.0); TOTAL PROTEIN 6.9 g/dL (6.3-8.2)
--- NOTE | 2019-12-20 07:44 | RADIOLOGY REPORT (SQ) ---
CT head without contrast on 12/20/2019 at 7:23 AM CLINICAL INDICATION: Headache TECHNIQUE: Multiple axial images are obtained throughout the head without the administration of contrast. This exam was performed according to our departmental dose-optimization program, which includes automated exposure control, adjustment of the mA and/or kV according to patient size and/or use of iterative reconstruction technique. Total DLP is 1150.19 mGy*cm. COMPARISON: 10/29/2019 FINDINGS: There is no hydrocephalus. There is no CT evidence of acute infarct. There is no hemorrhage. There are no abnormal extra-axial fluid collections. There is no mass, mass effect or midline shift. No bony abnormality is noted. IMPRESSION: No acute intracranial abnormality.
[2019-12-20 07:56] LABS: ERYTHROCYTE SEDIMENTATION RATE 41 mm/hr (0-30)
[2019-12-20 09:43] LABS: APPEARANCE,URINE SLIGHTLY-CLOUDY; BILIRUBIN,URINE NEGATIVE (NEGATIVE); COLOR,URINE YELLOW; GLUCOSE, URINE 50 mg/dL (NEGATIVE); KETONES,URINE 20 mg/dL (NEGATIVE); PROTEIN,URINE NEGATIVE (NEGATIVE); URINE SPECIFIC GRAVITY 1.021; UROBILINOGEN,URINE NEGATIVE mg/dL (<2.0)
[2019-12-20 09:53] LABS: URINE AMPHETAMINES SCREEN NEGATIVE; URINE BARBITURATES SCREEN NEGATIVE; URINE COCAINE SCREEN NEGATIVE; URINE MARIJUANA (THC) SCREEN NEGATIVE; URINE METHADONE SCREEN NEGATIVE; URINE PHENCYCLIDINE SCREEN NEGATIVE
[2019-12-20 10:00] LABS: URINE BENZODIAZEPINES SCREEN UNCONFIRMED POSITIVE
[2019-12-20 10:54] VITALS: BP 110/74
== END 2019-12-20 10:30 | disposition home or self-care (01) ==
LOC: ER 05:10
DX: I11.0 Hypertensive heart disease with heart failure (principal); R51 Headache; R42 Dizziness and giddiness; R11.0 Nausea; H92.09 Otalgia, unspecified ear; F17.200 Nicotine dependence, unspecified, uncomplicated; I50.9 Heart failure, unspecified; Z88.3 Allergy status to other anti-infective agents; Z91.040 Latex allergy status; Z88.0 Allergy status to penicillin; Z88.6 Allergy status to analgesic agent; Z86.711 Personal history of pulmonary embolism; Z86.73 Personal history of transient ischemic attack (TIA), and cerebral infarction without residual deficits; I25.2 Old myocardial infarction; Z87.442 Personal history of urinary calculi
CPT/HCPCS: 99284; 96374; 96375; 36415; 83735; 85025; 85652; 85610; 85730; 80053; 81001; 80307; 70450; J1200; J3010; J2765

== ENCOUNTER 2020-03-30 09:29 | Emergency (ER) | payer MEDICAID ==
[2020-03-30 09:39] VITALS: BP 152/84
--- NOTE | 2020-03-30 10:15 | ER Document Report ---
HPI - HPI Time Seen by Provider: 03/30/20 10:11 - ROS Notes: CHIEF COMPLAINT: Right arm pain for 3 weeks HPI: 49-year-old female presenting with right upper arm pain from a mechanical fall through the deck 3 weeks ago. Saw her PCP who did not order imaging but told her to do therapy. She has been doing therapy on her own at home did not follow back up with PCP or with orthopedics complains of [id number] sensation in the fingertips ROS: See HPI - all other systems were reviewed and are otherwise negative Constitutional: no fever Eyes: no drainage, no blurred vision ENT: no runny nose, no sore throat Cardiovascular: no chest pain Resp: no SOB, no cough GI: no vomiting, no abdominal pain : no dysuria Integumentary: no rash Allergy: no hives Musculoskeletal: + extremity pain or swelling Neurological: + numbness/tingling, no weakness MEDICATIONS: I agree with the patient medications as charted by the RN. ALLERGIES: I agree with the allergies as charted by the RN. PAST MEDICAL HISTORY/PAST SURGICAL HISTORY: Reviewed and agree as charted by RN. SOCIAL HISTORY: Reviewed and agree as charted by RN. FAMILY HISTORY: No significant familial comorbid conditions directly related to patient complaint EXAM: Reviewed vital signs as charted by RN. CONSTITUTIONAL: Alert and oriented and responds appropriately to questions. Well-appearing; well-nourished HEAD: Normocephalic; atraumatic EYES: Conjunctivae clear, sclerae non-icteric ENT: normal nose; no rhinorrhea; moist mucous membranes NECK: Supple without meningismus; non-tender; no cervical lymphadenopathy, no masses CARD: RRR; no murmurs, no clicks, no rubs, no gallops; symmetric distal pulses RESP: Normal chest excursion without splinting or tachypnea; breath sounds clear and equal bilaterally; no wheezes, no rhonchi, no rales, pulse oximetry 98% on room air not hypoxic ABD/GI: Normal bowel sounds; non-distended; soft, non-tender, no rebound, no guarding; no palpable organomegaly or masses. BACK: The back appears normal and is non-tender to palpation, there is no CVA tenderness EXT: There is tenderness on palpation of the right humerus. Brachial radial and ulnar pulses are present in the right upper extremity. There is no discomfort on palpation of the right elbow or right wrist. No tenderness on palpation of the right shoulder. Some limited abduction of the right arm secondary to complaints of pain SKIN: Normal color for age and race; warm; dry; good turgor; no acute lesions noted NEURO: Motor and sensory function intact PSYCH: The patient's mood and manner are appropriate. Grooming and personal hygiene are appropriate. MDM: 49-year-old female with injury to the right arm 3 weeks ago. Will obtain x-ray for fracture - REPRODUCTIVE Reproductive: DENIES: : Past Medical History - Social History Smoking Status: Unknown if Ever Smoked Family History: Arthritis, Malignancy, CAD, CVA, Hyperlipidemia, Hypertension, Reviewed & Not Pertinent - Past Medical History Cardiac Medical History: Reports: Hx Congestive Heart Failure, Hx Heart Attack, Hx Hypertension, Hx Pulmonary Embolism - 2003 Denies: Hx Coronary Artery Disease Pulmonary Medical History: Reports: Hx Asthma, Hx Bronchitis, Hx Pneumonia Denies: Hx COPD Neurological Medical History: Reports: Hx Cerebrovascular Accident - Possible stroke 2. Denies: Hx Seizures Renal/ Medical History: Reports: Hx Kidney Stones. Denies: Hx Peritoneal Dialysis Musculoskeletal Medical History: Reports Hx Arthritis, Reports Hx Musculoskeletal Deformity - chronic back pain Psychiatric Medical History: Reports: Hx Anxiety, Hx Obsessive Compulsive Disorder Past Surgical History: Reports: Hx Section - x3, Hx Kidney (Renal Surgery) - stent and removal - Immunizations Immunizations up to date: Yes Hx Diphtheria, Pertussis, Tetanus Vaccination: Yes - 2017 Vertical Provider Document - INFECTION CONTROL TRAVEL OUTSIDE OF THE [place] IN LAST 30 DAYS: No Course - Re-evaluation Re-evalutation: 03/30/20 10:25 I do not visualize a fracture of the humerus on my review of the patient x-ray. Will place patient in a sling, orthopedic follow-up - Vital Signs Vital signs: Temp Pulse Resp BP Pulse Ox 98 F 69 18 152/84 H 97 03/30/20 09:36 03/30/20 09:36 03/30/20 09:36 03/30/20 09:36 03/30/20 09:36 Discharge - Discharge Clinical Impression: Fall Qualifiers: Encounter type: initial encounter Qualified Code(s): W19.XXXA - Unspecified fall, initial encounter Arm injury Qualifiers: Encounter type: initial encounter Laterality: right Qualified Code(s): S49.91XA - Unspecified injury of right shoulder and upper arm, initial encounter Condition: Stable Disposition: HOME, SELF-CARE Instructions: Temporary Sling ([facility]) Additional Instructions: 1. ice the arm and shoulder twice daily for 10 minutes each time 2. use the sling for comfort during the day only for 2-3 days. Do not sleep in the sling 3. take the arm out of the sling 3-4 times daily and perform gentle range of motion exercises to maintain flexibility in the shoulder 4. medications for pain as directed. Prescriptions: Diclofenac Sodium [Voltaren 50 Mg Tablet.] 50 mg PO BID #20 tablet. Referrals: NICCI CAMEJO MD [Primary Care Provider] - Follow up as needed ELISA HANDLEY DO [ACTIVE STAFF] - Follow up as needed
--- NOTE | 2020-03-30 10:57 | RADIOLOGY REPORT (SQ) ---
EXAM DESCRIPTION: HUMERUS RIGHT IMAGES COMPLETED DATE/TIME: 03/30/2020 10:24 am REASON FOR STUDY: fall 3 weeks ago COMPARISON: None. NUMBER OF VIEWS: Two views. TECHNIQUE: Two radiographic images were acquired of the right humerus to include elbow and shoulder in at least one projection. LIMITATIONS: None. FINDINGS: MINERALIZATION: Normal. BONES: No acute fracture or dislocation. No worrisome bone lesions. SOFT TISSUES: No obvious swelling or foreign body. OTHER: No other significant finding. IMPRESSION: NEGATIVE STUDY OF THE RIGHT HUMERUS. NO RADIOGRAPHIC EVIDENCE OF ACUTE INJURY. TECHNICAL DOCUMENTATION: JOB ID: [id number] 2010 [employer]- All Rights Reserved Reading location - IP/workstation name: [facility]
== END 2020-03-30 11:07 | disposition home or self-care (01) ==
LOC: ER 09:29
DX: S49.91XA Unspecified injury of right shoulder and upper arm, initial encounter (principal); M79.601 Pain in right arm; W13.3XXA Fall through floor, initial encounter; I50.9 Heart failure, unspecified; I25.2 Old myocardial infarction; I11.0 Hypertensive heart disease with heart failure; Z86.73 Personal history of transient ischemic attack (TIA), and cerebral infarction without residual deficits
CPT/HCPCS: 99283

== ENCOUNTER 2020-04-14 13:50 | Emergency (ER) | payer MEDICAID ==
[2020-04-14 13:57] VITALS: BP 132/84
== END 2020-04-14 14:11 | disposition left against medical advice (07) ==
LOC: ER 13:50
DX: Z53.21 Procedure and treatment not carried out due to patient leaving prior to being seen by health care provider (principal)

== ENCOUNTER 2020-05-11 04:18 | Emergency (ER) | payer MEDICAID ==
[2020-05-11 05:29] VITALS: BP 139/71
[2020-05-11] MEDS ORDERED: METRONIDAZOLE 250 MG TABLET PO ONE (07:16)
[2020-05-11] MEDS ORDERED: ACETAMINOPHEN 325 MG TABLET PO ONE (07:17)
--- NOTE | 2020-05-11 09:23 | ER Document Report ---
Entered by DANIEL IRIZARRY SCRIBE 05/11/20 0819 Acting as scribe for:ZHAO WELLS MD ED Oral Problem - General Chief Complaint: Toothache Stated Complaint: TOOTHACHE Time Seen by Provider: 05/11/20 06:16 Primary Care Provider: NICCI CAMEJO MD [Primary Care Provider] - Follow up as needed Mode of Arrival: Ambulatory Information source: Patient Notes: This 49 year old female patient presents to the emergency department today with left mouth pain. Patient states she visited the ED and was sent to [facility] x3 days ago for a possible stroke because of a left facial droop, but ended up being a dental problem. Patient states she was prescribed clindamycin for her tooth but it causes her to be sick. Patient states she has not yet seen her Dentist because the office has been closed. Patient reports history of x2 TIA's, in 2009 and 2010, which left her with right sided weakness. TRAVEL OUTSIDE OF THE [place] IN LAST 30 DAYS: No - Related Data Allergies/Adverse Reactions: azithromycin [Azithromycin] Allergy (Severe, Verified 03/30/20 10:02) HIVES, N/V latex Allergy (Intermediate, Verified 03/30/20 10:02) Hives Penicillins Allergy (Mild, Verified 03/30/20 10:02) HIVES ITCHING morphine Allergy (Verified 03/30/20 10:02) Hives Past Medical History - General Information source: Patient - Social History Smoking Status: Current Every Day Smoker Family History: Arthritis, Malignancy, CAD, CVA, Hyperlipidemia, Hypertension, Reviewed & Not Pertinent - Past Medical History Cardiac Medical History: Reports: Hx Congestive Heart Failure, Hx Heart Attack, Hx Hypertension, Hx Pulmonary Embolism - 2004 Pulmonary Medical History: Reports: Hx Asthma, Hx Bronchitis, Hx Pneumonia Neurological Medical History: Reports: Hx Cerebrovascular Accident - Possible stroke 2 Renal/ Medical History: Reports: Hx Kidney Stones Musculoskeletal Medical History: Reports Hx Arthritis, Reports Hx Musculoskeletal Deformity - chronic back pain Psychiatric Medical History: Reports: Hx Anxiety, Hx Obsessive Compulsive Disorder Past Surgical History: Reports: Hx Section - x3, Hx Kidney (Renal Surgery) - stent and removal - Immunizations Immunizations up to date: Yes Hx Diphtheria, Pertussis, Tetanus Vaccination: Yes - 2017 Review of Systems - Review of Systems Constitutional: No symptoms reported EENT: See HPI, Mouth pain - L, Dental problem - upper L tooth Cardiovascular: No symptoms reported Respiratory: No symptoms reported Gastrointestinal: No symptoms reported Genitourinary: No symptoms reported Female Genitourinary: No symptoms reported Musculoskeletal: No symptoms reported Skin: No symptoms reported Hematologic/Lymphatic: No symptoms reported Neurological/Psychological: No symptoms reported -: Yes All other systems reviewed and negative Physical Exam - Vital signs Vitals: Temp Pulse Resp BP Pulse Ox 98.7 F 66 16 151/118 H 98 05/11/20 04:23 05/11/20 04:23 05/11/20 04:23 05/11/20 04:23 05/11/20 04:23 - General General appearance: Appears well, Alert - HEENT Head: Normocephalic, Atraumatic Eyes: Normal Pupils: PERRL Pharynx: Normal Neck: Normal, Supple Notes: Tenderness with palpation to the left upper incisor. No swelling. Missing several teeth. - Respiratory Respiratory status: No respiratory distress Chest status: Nontender Breath sounds: Normal Chest palpation: Normal - Cardiovascular Rhythm: Regular Heart sounds: Normal auscultation Murmur: No - Abdominal Inspection: Normal Distension: No distension Bowel sounds: Normal Tenderness: Nontender - Extremities General upper extremity: Normal inspection. No: Edema General lower extremity: Normal inspection. No: Edema - Neurological Neuro grossly intact: Yes Cognition: Normal Orientation: AAOx4 Speech: Normal Sensory: Normal - Psychological Associated symptoms: Normal affect, Normal mood - Skin Skin Temperature: Warm Skin Moisture: Dry Skin Color: Normal Course - Re-evaluation Re-evalutation: 05/11/20 09:21 Patient resting comfortably. Not showing signs of distress at this time. Tolerated p.o. Tylenol and metronidazole without any nausea or vomiting. - Vital Signs Vital signs: Temp Pulse Resp BP Pulse Ox 98.3 F 62 18 139/71 H 96 05/11/20 05:05/11/20 05:05/11/20 05:05/11/20 05:05/11/20 05:05/11/20 09:21 Vital signs stable. Discharge - Discharge Clinical Impression: Toothache Condition: Stable Disposition: HOME, SELF-CARE Instructions: Toothache ([facility]) Prescriptions: Metronidazole [Flagyl 500 mg Tablet] 500 mg PO BID #14 tablet Referrals: NELL,NICCI E, MD [Primary Care Provider] - Follow up as needed I personally performed the services described in the documentation, reviewed and edited the documentation which was dictated to the scribe in my presence, and it accurately records my words and actions.
== END 2020-05-11 09:29 | disposition home or self-care (01) ==
LOC: ER 04:18
DX: K08.89 Other specified disorders of teeth and supporting structures (principal); I10 Essential (primary) hypertension; J45.909 Unspecified asthma, uncomplicated; F17.200 Nicotine dependence, unspecified, uncomplicated; Z88.1 Allergy status to other antibiotic agents; Z91.040 Latex allergy status; Z88.0 Allergy status to penicillin; Z88.6 Allergy status to analgesic agent; Z88.5 Allergy status to narcotic agent
CPT/HCPCS: 99283; 82962; J3490 ×2

== ENCOUNTER 2020-05-20 21:29 | Emergency (ER) | payer MEDICAID ==
[2020-05-20] MEDS ORDERED: NORMAL SALINE 1000 ML 1,000 ML IV ONE (22:16)
[2020-05-20] MEDS ORDERED: ONDANSETRON HCL INJ/PF 4 MG/2 ML SDV IV ONE (22:17)
--- NOTE | 2020-05-20 22:42 | ER Document Report ---
ED General - General Chief Complaint: Headache Stated Complaint: WEAKNESS,DIZZINESS Time Seen by Provider: 05/20/20 21:57 Primary Care Provider: NICCI CAMEJO MD [Primary Care Provider] - Follow up as needed TRAVEL OUTSIDE OF THE [place] IN LAST 30 DAYS: No - HPI Notes: Patient is a 49-year-old female who presents to the emergency department for evaluation of a headache, blurred vision, nausea and vomiting. She states that the headache was sudden in onset earlier while getting ready for bed. She was at rest. She states is all over her head, with the exception of a "small strip" that she points to above her left ear. She states she had blurred vision while at home but that has resolved. She did have nausea with nonbloody, nonbilious emesis. She does have a history of migraines, states she did have a headache similar to this in the past. She did receive steroid injections in her lower back and hip earlier today. - Related Data Allergies/Adverse Reactions: azithromycin [Azithromycin] Allergy (Severe, Verified 03/30/20 10:02) HIVES, N/V latex Allergy (Intermediate, Verified 03/30/20 10:02) Hives Penicillins Allergy (Mild, Verified 03/30/20 10:02) HIVES ITCHING morphine Allergy (Verified 03/30/20 10:02) Hives Past Medical History - General Information source: Patient - Social History Smoking Status: Never Smoker Chew tobacco use (# tins/day): No Frequency of alcohol use: None Drug Abuse: None Family History: Arthritis, Malignancy, CAD, CVA, Hyperlipidemia, Hypertension, Reviewed & Not Pertinent Patient has homicidal ideation: No - Past Medical History Cardiac Medical History: Reports: Hx Congestive Heart Failure, Hx Heart Attack, Hx Hypertension, Hx Pulmonary Embolism - 2003 Denies: Hx Coronary Artery Disease Pulmonary Medical History: Reports: Hx Asthma, Hx Bronchitis, Hx Pneumonia Denies: Hx COPD Neurological Medical History: Reports: Hx Cerebrovascular Accident - Possible st roke 2. Denies: Hx Seizures Renal/ Medical History: Reports: Hx Kidney Stones. Denies: Hx Peritoneal Dialysis Musculoskeletal Medical History: Reports Hx Arthritis, Reports Hx Musculoskeletal Deformity - chronic back pain Psychiatric Medical History: Reports: Hx Anxiety, Hx Obsessive Compulsive Disorder Past Surgical History: Reports: Hx Section - x3, Hx Kidney (Renal Surgery) - stent and removal - Immunizations Immunizations up to date: Yes Hx Diphtheria, Pertussis, Tetanus Vaccination: Yes - 2017 Review of Systems - Review of Systems Constitutional: No symptoms reported EENT: See HPI Cardiovascular: No symptoms reported Respiratory: No symptoms reported Gastrointestinal: See HPI Genitourinary: No symptoms reported Musculoskeletal: No symptoms reported Skin: No symptoms reported Neurological/Psychological: See HPI Physical Exam - Vital signs Vitals: Pulse Ox 100 05/20/20 21:53 - Notes Notes: This is a 49-year-old female who appears her stated age, in a mild amount of distress. She covers her eyes with her hand. Vital signs reviewed, please refer to chart. Head is normocephalic, atraumatic. Pupils equal round, reactive to light. Neck is supple without meningismus. Heart is regular rate and rhythm. Lungs are clear to auscultation bilaterally. Abdomen is soft, nontender, normoactive bowel sounds throughout. Extremities without cyanosis, clubbing. Posterior calves are nontender. Peripheral pulses are equal. Skin is warm and dry. Patient is awake, alert, oriented x3. Cranial nerves II - XII are grossly intact without focal neurological deficits. Strength is plus 5 out of 5 bilateral upper and lower extremities. Sensation is intact. Reflexes symmetrical. Intact [id number]-[id number], rapid alternating movements, [id number]. Course - Re-evaluation Re-evalutation: 05/20/20 22:43 Patient presents to the emergency department for evaluation. This is a 49-year-old female complains of a significant headache. She has had a headache similar to this in the past, but it was sudden in onset. We are inside the 6- hour window, so decision was made to order a CT scan of the head to evaluate for more significant intracranial pathology. However, I do not have a high suspicion of this at this time. The patient has had a migraine which she states was similar to this in the past. Awaiting imaging, we will treat the patient with a traditional migraine cocktail and IV fluids. Checking basic blood work. She is currently stable, we will continue to monitor. 05/21/20 01:11 I went back into reevaluate patient. I had held off on migraine cocktail until read from radiology regarding her CT scan. At the time I went to reevaluate the patient, she was sleeping comfortably. CT scan is unremarkable. Will treat with traditional migraine cocktail and discharge. She is to follow-up with primary care, return to the ED with worsening. - Vital Signs Vital signs: Temp Pulse Resp BP Pulse Ox 21 H 153/79 H 100 05/20/20 23:31 05/20/20 23:31 05/20/20 23:31 - Laboratory Result Diagrams: 05/20/20 22:00 05/20/20 22:00 Laboratory results interpreted by me: 05/20/20 05/20/20 22:00 22:00 WBC 11.0 H RDW 14.9 H [place] % (Auto) 1.8 L Absolute Neuts (auto) 9.3 H Seg Neutrophils % 84.6 H Glucose 172 H ALT 42 H - Diagnostic Test Radiology reviewed: Image reviewed, Reports reviewed Radiology results interpreted by me: 05/21/20 01:[address] 05/20/20 22:29 IMPRESSION: No acute intracranial abnormality. TECHNICAL DOCUMENTATION: Quality ID # [id number]: Final reports with documentation of one or more dose reduction techniques (e.g., Automated exposure control, adjustment of the mA and/or kV according to patient size, use of iterative reconstruction technique) copyright 2011 [employer]- All Rights Reserved Discharge - Discharge Clinical Impression: Migraine headache without aura Qualifiers: Status migrainosus presence: without status migrainosus Intractability: not intractable Qualified Code(s): G43.009 - Migraine without aura, not intractable, without status migrainosus Condition: Stable Disposition: HOME, SELF-CARE Instructions: Use of Diphenhydramine, Headache ([facility]), Reglan ([facility]), Toradol Injection ([facility]) Additional Instructions: Rest, stay well-hydrated. Continue your home medications as prescribed. Follow-up with your primary care provider this week. Return to the emergency department with worsening or new concerning symptoms of any sort. Referrals: NICCI CAMEJO MD [Primary Care Provider] - Follow up as needed
[2020-05-20 22:46] LABS: ABSOLUTE BASOPHILS # (AUTO) 0.1 10^3/uL (0.0-0.2); ABSOLUTE LYMPHOCYTES (AUTO) 1.4 10^3/uL (0.5-4.7); ABSOLUTE MONOCYTES (AUTO) 0.2 10^3/uL (0.1-1.4); ABSOLUTE NEUT (AUTO) 9.3 10^3/uL (1.7-8.2); BASOPHILS % (AUTO) 0.5 % (0-2); EOSINOPHILS % (AUTO) 0.1 % (0-6); HEMATOCRIT 40.4 % (36.0-47.0); HEMOGLOBIN 13.5 g/dL (12.0-15.5); MEAN CORPUSCULAR HEMOGLOBIN 29.8 pg (27.0-33.4); MEAN CORPUSCULAR HGB CONC 33.3 g/dL (32.0-36.0); MEAN CORPUSCULAR VOLUME 90 fl (80-97); MONOCYTES % (AUTO) 1.8 % (3-13); PLATELET COUNT 318 10^3/uL (150-450); RED BLOOD COUNT 4.51 10^6/uL (3.72-5.28); RED CELL DISTRIBUTION WIDTH 14.9 % (11.5-14.0); SEGMENTED NEUTROPHILS % (AUTO) 84.6 % (42-78); TOTAL CELLS COUNTED % (AUTO) 100 %
[2020-05-20 22:49] LABS: ALBUMIN 4.2 g/dL (3.5-5.0); ALKALINE PHOSPHATASE 68 U/L (38-126); ANION GAP 10 (5-19); ASPARTATE AMINO TRANSFERASE 30 U/L (14-36); BILIRUBIN,DIRECT 0.3 mg/dL (0.0-0.4); BILIRUBIN,TOTAL 0.3 mg/dL (0.2-1.3); BLOOD UREA NITROGEN 14 mg/dL (7-20); CARBON DIOXIDE 25 mmol/L (22-30); CHLORIDE 103 mmol/L (98-107); GLUCOSE 172 mg/dL (75-110); POTASSIUM 4.4 mmol/L (3.6-5.0); TOTAL PROTEIN 7.3 g/dL (6.3-8.2)
--- NOTE | 2020-05-21 00:58 | RADIOLOGY REPORT (SQ) ---
EXAM DESCRIPTION: CT HEAD WITHOUT IV CONTRAST COMPLETED DATE/TME: 05/20/2020 22:29 CLINICAL HISTORY: 49 years, Female, headache COMPARISON: 12/20/2019 TECHNIQUE: Axial CT images of the brain were obtained without contrast. Sagittal and coronal reformats were performed. DLP 1070 Images stored on PACS. All CT scanners at this facility use dose modulation, iterative reconstruction, and/or weight based dosing when appropriate to reduce radiation dose to as low as reasonably achievable (ALARA). [facility]: Dose Right [facility]: CareDose [facility]: Dose Right [facility]: Teradose 4D [facility]: [employer] LIMITATIONS: None. FINDINGS: There is no acute cortical infarct, hemorrhage, mass, edema, hydrocephalus, or extra-axial fluid collection. The paranasal sinuses and mastoid air cells are clear. There is no acute fracture. IMPRESSION: No acute intracranial abnormality. TECHNICAL DOCUMENTATION: Quality ID # 436: Final reports with documentation of one or more dose reduction techniques (e.g., Automated exposure control, adjustment of the mA and/or kV according to patient size, use of iterative reconstruction technique) copyright 2011 [employer]- All Rights Reserved
[2020-05-21] MEDS ORDERED: DIPHENHYDRAMINE HCL 50 MG/ML VIAL IV ONE (01:09)
[2020-05-21] MEDS ORDERED: KETOROLAC TROMETHAMINE INJ/PF 30 MG/1 ML SDV IV ONE (01:09)
[2020-05-21] MEDS ORDERED: METOCLOPRAMIDE HCL INJ/PF 10 MG/2 ML SDV IV ONE (01:09)
[2020-05-21 01:49] VITALS: BP 160/89
== END 2020-05-21 02:11 | disposition home or self-care (01) ==
LOC: ER 21:29
DX: G43.009 Migraine without aura, not intractable, without status migrainosus (principal); R11.2 Nausea with vomiting, unspecified; I10 Essential (primary) hypertension; J45.909 Unspecified asthma, uncomplicated; Z88.1 Allergy status to other antibiotic agents; Z91.040 Latex allergy status; Z88.0 Allergy status to penicillin; Z88.6 Allergy status to analgesic agent; Z88.5 Allergy status to narcotic agent
CPT/HCPCS: 99285; 96361 ×2; 96374; 96375; 36415; 85025; 80053; 70450; J1200; J1885; J2765; J2405; J7030

== ENCOUNTER 2020-05-23 05:18 | Emergency (ER) | payer MEDICAID ==
[2020-05-23] MEDS ORDERED: HYDROMORPHONE HCL INJ/PF 2 MG/ML AMPULE IV PRN (06:32)
--- NOTE | 2020-05-23 06:38 | ER Document Report ---
ED General - General Chief Complaint: Shoulder Pain Stated Complaint: RIGHT ARM PAIN Time Seen by Provider: 05/23/20 06:07 Primary Care Provider: NICCI CAMEJO MD [Primary Care Provider] - Follow up as needed TRAVEL OUTSIDE OF THE [place] IN LAST 30 DAYS: No - HPI Notes: Chief complaint: Right side neck and shoulder pain History of present illness: 49-year-old female with history of chronic/recurrent rotator cuff tendinitis of right shoulder awakened this morning with severe pain in the shoulder aggravated by touching the area or by any movement of the shoulder or the neck. Denies trauma. Denies unaccustomed activity. Says she might have "slept wrong". She is previously been treated by Dr. oh from orthopedics and had a corticosteroid injection of the shoulder about 6 months ago. She has some Percocet at home for as needed use. She took 1 tablet this morning and says it really has not helped. She describes her pain is 10/10 intensity. - Related Data Allergies/Adverse Reactions: azithromycin [Azithromycin] Allergy (Severe, Verified 05/23/20 05:23) HIVES, N/V latex Allergy (Intermediate, Verified 05/23/20 05:23) Hives Penicillins Allergy (Mild, Verified 05/23/20 05:23) HIVES ITCHING clindamycin Allergy (Verified 05/23/20 05:23) morphine Allergy (Verified 05/23/20 05:23) Hives dairy Allergy (Uncoded 05/23/20 05:23) Past Medical History - General Information source: Patient, [facility] Records - Social History Smoking Status: Current Every Day Smoker Frequency of alcohol use: None Drug Abuse: None Family History: Arthritis, Malignancy, CAD, CVA, Hyperlipidemia, Hypertension, Reviewed & Not Pertinent Patient has homicidal ideation: No - Past Medical History Cardiac Medical History: Reports: Hx Congestive Heart Failure, Hx Heart Attack, Hx Hypertension, Hx Pulmonary Embolism - 2003 Denies: Hx Coronary Artery Disease Pulmonary Medical History: Reports: Hx Asthma, Hx Bronchitis, Hx Pneumonia Denies: Hx COPD Neurological Medical History: Denies: Hx Cerebrovascular Accident, Hx Migraine, Hx Seizures Endocrine Medical History: Reports: Hx Diabetes Mellitus Type 2 Renal/ Medical History: Reports: Hx Kidney Stones. Denies: Hx Peritoneal Dialysis Musculoskeletal Medical History: Reports Hx Arthritis, Reports Hx Musculoskeletal Deformity - chronic back pain Psychiatric Medical History: Reports: Hx Anxiety, Hx Obsessive Compulsive Disorder Past Surgical History: Reports: Hx Section, Hx Kidney (Renal Surgery) - stent and removal - Immunizations Immunizations up to date: Yes Hx Diphtheria, Pertussis, Tetanus Vaccination: Yes - 2016 Review of Systems - Review of Systems Notes: Constitutional: Negative for fever. HENT: Negative for sore throat. Eyes: Negative for visual changes. Cardiovascular: Negative for chest pain. Respiratory: Negative for shortness of breath. Gastrointestinal: Negative for abdominal pain, vomiting or diarrhea. Genitourinary: Negative for dysuria. Musculoskeletal: As per HPI. Skin: Negative for rash. Neurological: Negative for headaches, weakness or numbness. 10 point ROS negative except as marked above and in HPI. Physical Exam - Vital signs Vitals: Temp Pulse Resp BP Pulse Ox 97.7 F 71 24 H 164/94 H 96 05/23/20 05:24 05/23/20 05:24 05/23/20 05:24 05/23/20 05:05/23/20 05:24 - Notes Notes: GENERAL: Obese middle-aged female who appears in severe pain currently crying. SKIN: Good turgor no rashes. HEAD: Normocephalic atraumatic. EYES: PERRLA. EOMI. Conjunctivae and sclerae clear. EARS: CANALS AND TMS CLEAR. NOSE: CLEAR. MOUTH: Moist mucosa. Good dentition. No stridor or edema. No drooling. NECK: Palpable muscular spasm right posterior cervical area and patient is exquisitely tender. Complains of pain radiating down the arm when I palpate the posterior cervical area on the right side. No masses or thyromegaly. No adenopathy. Carotids 2+ without bruits. No JVD. BACK: Symmetrical without tenderness. CHEST: Respirations unlabored. Breath sounds clear and symmetrical. HEART: Regular rhythm. No murmur gallop or rub. ABDOMEN: Obese. Soft nontender without masses, organomegaly or rebound. Bowel sounds normally active. No bruits. GENITALIA: Deferred. EXTREMITIES: Patient is exquisitely tender over the deltoid area right shoulder which exactly reproduces her pain. She resists motion in all planes secondary to pain. Her distal neurovascular exam is normal. No edema. No calf tenderness. Cap refill less than 1.5 seconds. Dorsalis pedis and posterior tibial pulses 3+ and symmetrical. NEUROLOGICAL: GCS 15. Alert and oriented x3. Normal gait. Fluent speech. Cranial nerves II through XII intact. Sensorimotor and cerebellar normal. Normal tone. PSYCHIATRIC: Appropriate affect. Course - Re-evaluation Re-evalutation: 05/23/20 08:39 Patient received an IM injection of Dilaudid for control of her pain. Plain films of the C-spine and shoulder were read as negative by the radiologist. She is exquisitely tender on palpation over the right shoulder and resisting movement. She has prior history of rotator cuff tendinitis. She is due to return to her orthopedist for reinjection with steroid. I encouraged her to follow-up with Dr. oh this week. I am going to add some Lidoderm and Flexeril. Instructed to use ice packs. Sling provided. She is already on an NSAID at home and has Percocet for as needed use on hand at home additionally. - Vital Signs Vital signs: Temp Pulse Resp BP Pulse Ox 97.7 F 71 24 H 164/94 H 96 05/23/20 05:24 05/23/20 05:24 05/23/20 05:24 05/23/20 05:24 05/23/20 05:24 - Diagnostic Test Radiology reviewed: Reports reviewed - Per radiologist: Normal plain films right shoulder and C-spine Procedures - Immobilization Right Upper Pre-Proc Neuro Vasc Exam: Normal Immobilizer type: Sling Performed by: PCT Post-Proc Neuro Vasc Exam: Normal Discharge - Discharge Clinical Impression: Right rotator cuff tendinitis Condition: Stable Disposition: HOME, SELF-CARE Additional Instructions: Rotator Cuff Injury You have injured your rotator cuff. This is a group of tendons that form a "cuff" around the upper arm bone. This usually results from an injury that tears the tendons, but sometimes the rotator cuff simply "wears out." If the rotator cuff is only partially torn, time and protection may allow it to heal. This may take several weeks. If the shoulder doesn't become free of pain, surgery may be considered. A complete tear of the rotator cuff requires surgery. If the shoulder is too painful to move, we may need to recheck in a few days. An arthrogram (injecting dye into the joint) or MR scan may be necessary to resolve the question. Initial treatment includes cold packs and a sling to rest the shoulder. We usually prescribe antiinflammatory medication. Be sure to keep your follow up appointment. Call us any time if there's severe pain, numbness, or loss of function. Follow-up with your orthopedist this week as instructed. Use sling as needed. Use ice packs as needed. Prescriptions: Cyclobenzaprine HCl [Flexeril 10 mg Tablet] 10 mg PO TIDP PRN #15 tab PRN Reason: Lidocaine [Lidoderm 5% (700 mg) Transdermal Patch] 1 patch TP DAILY #30 adh..patch Referrals: NICCI CAMEJO MD [Primary Care Provider] - Follow up as needed ELISA HANDLEY DO [ACTIVE STAFF] - Follow up as needed
--- NOTE | 2020-05-23 07:54 | RADIOLOGY REPORT (SQ) ---
Right shoulder x-ray three views on 05/23/2020 at 6:56 AM Clinical indications: Right shoulder pain COMPARISON: 04/04/2019 FINDINGS: There is a stable calcification projecting under the coracoid process. The AC joint is well aligned. The glenohumeral joint is well located. There are no fractures. No other bony body is noted. IMPRESSION: Stable exam with no acute abnormality.
--- NOTE | 2020-05-23 08:15 | RADIOLOGY REPORT (SQ) ---
EXAM DESCRIPTION: CERV SP 4 OR 5 VIEWS IMAGES COMPLETED DATE/TIME: 05/23/2020 7:48 am REASON FOR STUDY: pain COMPARISON: None. NUMBER OF VIEWS: Five views. TECHNIQUE: AP, lateral, obliques and odontoid radiographic images acquired of the cervical spine. LIMITATIONS: None. FINDINGS: MINERALIZATION: Normal. ALIGNMENT: Anatomic. VERTEBRAE: Vertebral bodies of normal height. DISCS: No significant osteophytes or sclerosis. Disc height maintained. FORAMINA: No osteophytes or foraminal narrowing. LATERAL AND POSTERIOR ELEMENTS: Facets, lateral masses and spinous processes without significant find ings. HARDWARE: None in the spine. SOFT TISSUES: No masses or calcifications. Lung apices clear. OTHER: No other significant finding. IMPRESSION: NO SIGNIFICANT RADIOGRAPHIC FINDING IN THE CERVICAL SPINE. TECHNICAL DOCUMENTATION: JOB ID: [id number] 2010 [employer]- All Rights Reserved Reading location - IP/workstation name: [email or web address]
[2020-05-23 09:02] VITALS: BP 148/85
== END 2020-05-23 09:08 | disposition home or self-care (01) ==
LOC: ER 05:18
DX: M77.9 Enthesopathy, unspecified (principal); M25.511 Pain in right shoulder; M54.2 Cervicalgia; Z79.899 Other long term (current) drug therapy; Z88.1 Allergy status to other antibiotic agents; Z88.0 Allergy status to penicillin; Z88.8 Allergy status to other drugs, medicaments and biological substances; F17.200 Nicotine dependence, unspecified, uncomplicated; I50.9 Heart failure, unspecified; I25.2 Old myocardial infarction; I11.0 Hypertensive heart disease with heart failure; J45.909 Unspecified asthma, uncomplicated; E11.9 Type 2 diabetes mellitus without complications
CPT/HCPCS: 99284; 96374; 82962; 72050; 73030; J1170

== ENCOUNTER 2020-07-14 17:44 | Emergency (ER) | payer MEDICAID ==
--- NOTE | 2020-07-14 18:37 | ER Document Report ---
ED Medical Screen (RME) - General Chief Complaint: High Blood Pressure Stated Complaint: DIZZINESS,BLURRED VISION Time Seen by Provider: 07/14/20 18:29 Primary Care Provider: NICCI CAMEJO MD [Primary Care Provider] - Follow up as needed TRAVEL OUTSIDE OF THE [place] IN LAST 30 DAYS: No - HPI Notes: 07/14/20 18:38 50-year-old female with a history of hkf-rrajcjs-mbnuaspco diabetes, hypertension who had a TIA in 2009, 2010 and an IA in 1989 presents to the emergency room by private vehicle for evaluation after her blood pressure was 192/110, she had dizziness, headache, blurred vision double vision and she reports she has shortness of breath on exertion and some chest tightness. She did take amlodipine 10 mg and Catapril 100 mg at 5 PM, which are her home medications. She states now that her dizziness has subsided some now that her blood pressure has gone down to the 170s over 90s. Patient reports around 4:45, she was feeling kind of weak, she checked her blood sugar and it was 72, patient states she does not feel okay until her blood sugars around 95-1 07 so she did drink some orange juice. Patient took her blood pressure and realized that she was having hypertensive urgency. Denies any nausea vomiting, abdominal pain, fevers or chills. I have greeted and performed a rapid initial assessment of this patient. A comprehensive ED assessment and evaluation of the patient, analysis of test results and completion of the medical decision making process will be conducted by additional ED providers. PHYSICAL EXAMINATION: GENERAL: Well-appearing, well-nourished and in no acute distress. HEAD: Atraumatic, normocephalic. EYES: Pupils equal round extraocular movements intact, conjunctiva are normal. NECK: Normal range of motion CV: s1, s2 regular LUNGS: No respiratory distress - Related Data Allergies/Adverse Reactions: azithromycin [Azithromycin] Allergy (Severe, Verified 07/14/20 18:28) HIVES, N/V latex Allergy (Intermediate, Verified 07/14/20 18:28) Hives Penicillins Allergy (Mild, Verified 07/14/20 18:28) HIVES ITCHING clindamycin Allergy (Verified 07/14/20 18:28) morphine Allergy (Verified 07/14/20 18:28) Hives dairy Allergy (Uncoded 07/14/20 18:28) Past Medical History - Past Medical History Cardiac Medical History: Reports: Hx Congestive Heart Failure, Hx Heart Attack, Hx Hypertension, Hx Pulmonary Embolism - 2003 Denies: Hx Coronary Artery Disease Pulmonary Medical History: Reports: Hx Asthma, Hx Bronchitis, Hx Pneumonia Denies: Hx COPD Neurological Medical History: Denies: Hx Cerebrovascular Accident, Hx Migraine, Hx Seizures Endocrine Medical History: Reports: Hx Diabetes Mellitus Type 2 Renal/ Medical History: Reports: Hx Kidney Stones. Denies: Hx Peritoneal Dialysis Musculoskeltal Medical History: Reports Hx Arthritis, Reports Hx Musculoskeletal Deformity - chronic back pain Psychiatric Medical History: Reports: Hx Anxiety, Hx Obsessive Compulsive Disorder Past Surgical History: Reports: Hx Section, Hx Kidney (Renal Surgery) - stent and removal - Immunizations Immunizations up to date: Yes Hx Diphtheria, Pertussis, Tetanus Vaccination: Yes - 2016 Physical Exam - Vital signs Vitals: Temp Pulse Resp BP Pulse Ox 98 F 73 16 173/93 H 98 07/14/20 18:06 07/14/20 18:06 07/14/20 18:06 07/14/20 18:06 07/14/20 18:06 Course - Vital Signs Vital signs: Temp Pulse Resp BP Pulse Ox 98 F 73 16 173/93 H 98 07/14/20 18:06 07/14/20 18:06 07/14/20 18:06 07/14/20 18:06 07/14/20 18:06 Doctor's Discharge - Discharge Referrals: NICCI CAMEJO MD [Primary Care Provider] - Follow up as needed
--- NOTE | 2020-07-14 19:17 | RADIOLOGY REPORT (SQ) ---
EXAM DESCRIPTION: CHEST SINGLE VIEW IMAGES COMPLETED DATE/TIME: 07/14/2020 6:57 pm REASON FOR STUDY: sob and cp COMPARISON: 05/07/2020 EXAM PARAMETERS: NUMBER OF VIEWS: One view. TECHNIQUE: Single frontal radiographic view of the chest acquired. RADIATION DOSE: NA LIMITATIONS: None. FINDINGS: LUNGS AND PLEURA: No opacities, masses or pneumothorax. No pleural effusion. MEDIASTINUM AND HILAR STRUCTURES: No masses. Contour normal. HEART AND VASCULAR STRUCTURES: Heart normal in size. Normal vasculature. BONES: No acute findings. HARDWARE: None in the chest. OTHER: No other significant finding. IMPRESSION: 1. NO ACUTE RADIOGRAPHIC FINDING IN THE CHEST. TECHNICAL DOCUMENTATION: JOB ID: [id number] 2010 [employer]- All Rights Reserved Reading location - IP/workstation name: [email or web address]
[2020-07-14 19:55] LABS: APPEARANCE,URINE SLIGHTLY-CLOUDY; BILIRUBIN,URINE NEGATIVE (NEGATIVE); COLOR,URINE YELLOW; GLUCOSE, URINE NEGATIVE (NEGATIVE); KETONES,URINE TRACE mg/dL (NEGATIVE); LEUKOCYTE ESTERASE,URINE NEGATIVE (NEGATIVE); NITRITE,URINE NEGATIVE (NEGATIVE); PROTEIN,URINE NEGATIVE (NEGATIVE); URINE SPECIFIC GRAVITY 1.027
--- NOTE | 2020-07-14 20:04 | RADIOLOGY REPORT (SQ) ---
EXAM DESCRIPTION: CT HEAD WITHOUT IMAGES COMPLETED DATE/TIME: 07/14/2020 7:44 pm REASON FOR STUDY: sob and cp COMPARISON: 05/21/2020 TECHNIQUE: Axial images acquired through the brain without intravenous contrast. Images reviewed wi th bone, brain and subdural windows. Additional sagittal and coronal reconstructions were generated. Images stored on PACS. All CT scanners at this facility use dose modulation, iterative reconstruction, and/or weight based d osing when appropriate to reduce radiation dose to as low as reasonably achievable (ALARA). [facility]: Dose Right [facility]: CareDose [facility]: Dose Right [facility]: Teradose 4D [facility]: Smart [employer] RADIATION DOSE: CT Rad equipment meets quality standard of care and radiation dose reduction techniq ues were employed. CTDIvol: 53.2 mGy. DLP: 964 mGy-cm. mGy. LIMITATIONS: None. FINDINGS: VENTRICLES: Normal size and contour. CEREBRUM: No masses. No hemorrhage. No midline shift. No evidence for acute infarction. Normal gra y/white matter differentiation. No areas of low density in the white matter. CEREBELLUM: No masses. No hemorrhage. No alteration of density. No evidence for acute infarction. EXTRAAXIAL SPACES: No fluid collections. No masses. ORBITS AND GLOBE: No intra- or extraconal masses. Normal contour of globe without masses. CALVARIUM: No fracture. PARANASAL SINUSES: No fluid or mucosal thickening. SOFT TISSUES: No mass or hematoma. OTHER: No other significant finding. IMPRESSION: NO ACUTE INTRACRANIAL IMAGING FINDINGS. EVIDENCE OF ACUTE STROKE: NO. COMMENT: Quality ID # 436: Final reports with documentation of one or more dose reduction techniques (e.g., Automated exposure control, adjustment of the mA and/or kV according to patient size, use of iterative reconstruction technique) TECHNICAL DOCUMENTATION: JOB ID: [id number] 2010 [employer]- All Rights Reserved Reading location - IP/workstation name: [email or web address]
[2020-07-14 20:57] LABS: HEMATOCRIT 37.9 % (36.0-47.0); HEMOGLOBIN 12.8 g/dL (12.0-15.5); MEAN CORPUSCULAR HEMOGLOBIN 29.5 pg (27.0-33.4); MEAN CORPUSCULAR HGB CONC 33.9 g/dL (32.0-36.0); MEAN CORPUSCULAR VOLUME 87 fl (80-97); RED BLOOD COUNT 4.36 10^6/uL (3.72-5.28)
[2020-07-14 21:15] LABS: ALBUMIN 4.1 g/dL (3.5-5.0); ALKALINE PHOSPHATASE 63 U/L (38-126); ANION GAP 8 (5-19); ASPARTATE AMINO TRANSFERASE 33 U/L (14-36); BILIRUBIN,DIRECT 0.1 mg/dL (0.0-0.4); BILIRUBIN,TOTAL 0.2 mg/dL (0.2-1.3); BLOOD UREA NITROGEN 18 mg/dL (7-20); CALCIUM 10.2 mg/dL (8.4-10.2); CARBON DIOXIDE 27 mmol/L (22-30); CHLORIDE 105 mmol/L (98-107); GLUCOSE 104 mg/dL (75-110); TOTAL PROTEIN 7.2 g/dL (6.3-8.2)
[2020-07-14 21:21] LABS: BASOPHILS % (MANUAL) 1 % (0-2); EOSINOPHILS % (MANUAL) 3 % (0-6); LYMPHOCYTES % (MANUAL) 43 % (13-45); MONOCYTES % (MANUAL) 7 % (3-13); SEGMENTED NEUTROPHILS % (MAN) 46 % (42-78); TOTAL CELLS COUNTED 100
[2020-07-14 21:24] LABS: NT PRO BNP 101 pg/mL (<125)
[2020-07-14 21:25] LABS: TROPONIN I < 0.012 ng/mL
[2020-07-14 21:33] LABS: ANISOCYTOSIS SLIGHT; POLYCHROMASIA SLIGHT
[2020-07-14 21:34] LABS: PLATELET CLUMPS PRESENT; PLATELET COMMENT ADEQUATE; STOMATOCYTES SLIGHT
[2020-07-14 21:36] LABS: PLATELET COUNT 256 10^3/uL (150-450)
[2020-07-14 21:37] LABS: ABSOLUTE LYMPHOCYTES# (MANUAL) 5.9 10^3/uL (0.5-4.7)
[2020-07-14 21:47] LABS: WHITE BLOOD COUNT 13.7 10^3/uL (4.0-10.5)
[2020-07-14 21:53] LABS: NUCLEATED RED BLOOD CELLS 8 /100 WBC (0)
--- NOTE | 2020-07-14 23:49 | EKG REPORT ---
SEVERITY:- ABNORMAL ECG - SINUS RHYTHM FIRST DEGREE AV BLOCK NONSPECIFIC T ABNORMALITIES, LATERAL LEADS : Confirmed by: Maria R Pitt MD 14-Jul-2020 23:48:37
--- NOTE | 2020-07-15 01:56 | ER Document Report ---
ED General - General Chief Complaint: Chest Tightness Stated Complaint: DIZZINESS,BLURRED VISION Time Seen by Provider: 07/14/20 18:29 Primary Care Provider: NICCI CAMEJO MD [Primary Care Provider] - 07/17/20 Notes: Patient is a 50 year old female that comes to the Emergency Department for chief complaint of pain in her upper back, neck, headache. She also states that she had lightheadedness, dizziness, and blurred vision briefly. She states she called EMS, they came out to check on her, they offered to bring her to the emergency department but she declined, after this she drove herself to the emergency department. She states that when her blood pressure was very high she took amlodipine 10 mg, captopril 100 mg (these are her home medications). She states that she became very worried and she felt as if it was hard to catch her breath although she denies chest pain. She states she has had pain in her upper back and neck for months after she fell through a deck and she was evaluated and had imaging, she states she has herniated disks in her neck. She denies developing numbness. She states that she feels a lot better now, dizziness and blurry vision has subsided, she states she just has a headache that feels like a "band" across her forehead. Past medical history of hypertension, CAD, type 2 diabetes on pills. She denies recreational drugs or alcohol, she states she smokes occasionally. TRAVEL OUTSIDE OF THE [place] IN LAST 30 DAYS: No - Related Data Allergies/Adverse Reactions: azithromycin [Azithromycin] Allergy (Severe, Verified 07/14/20 18:28) HIVES, N/V latex Allergy (Intermediate, Verified 07/14/20 18:28) Hives Penicillins Allergy (Mild, Verified 07/14/20 18:28) HIVES ITCHING clindamycin Allergy (Verified 07/14/20 18:28) morphine Allergy (Verified 07/14/20 18:28) Hives dairy Allergy (Uncoded 07/14/20 18:28) Past Medical History - General Information source: Patient - Social History Smoking Status: Current Some Day Smoker - 5 cigarettes a week reportedly Chew tobacco use (# tins/day): No Frequency of alcohol use: None Drug Abuse: None Lives with: Family Family History: Arthritis, Malignancy, CAD, CVA, Hyperlipidemia, Hypertension, Reviewed & Not Pertinent - Past Medical History Cardiac Medical History: Reports: Hx Congestive Heart Failure, Hx Heart Attack, Hx Hypertension, Hx Pulmonary Embolism - 2003 Denies: Hx Coronary Artery Disease Pulmonary Medical History: Reports: Hx Asthma, Hx Bronchitis, Hx Pneumonia Denies: Hx COPD Neurological Medical History: Denies: Hx Cerebrovascular Accident, Hx Migraine, Hx Seizures Endocrine Medical History: Reports: Hx Diabetes Mellitus Type 2 Renal/ Medical History: Reports: Hx Kidney Stones. Denies: Hx Peritoneal Dialysis Musculoskeletal Medical History: Reports Hx Arthritis, Reports Hx Musculoskeletal Deformity - chronic back pain Psychiatric Medical History: Reports: Hx Anxiety, Hx Obsessive Compulsive Disorder Past Surgical History: Reports: Hx Section, Hx Kidney (Renal Surgery) - stent and removal - Immunizations Immunizations up to date: Yes Hx Diphtheria, Pertussis, Tetanus Vaccination: Yes - 2017 Review of Systems - Review of Systems Constitutional: See HPI EENT: No symptoms reported Cardiovascular: See HPI Respiratory: No symptoms reported Gastrointestinal: No symptoms reported Genitourinary: No symptoms reported Female Genitourinary: No symptoms reported Musculoskeletal: See HPI Skin: No symptoms reported Hematologic/Lymphatic: No symptoms reported Neurological/Psychological: See HPI Physical Exam - Vital signs Vitals: Temp Pulse Resp BP Pulse Ox 98 F 73 16 173/93 H 98 07/14/20 18:06 07/14/20 18:06 07/14/20 18:06 07/14/20 18:06 07/14/20 18:06 - Notes Notes: GENERAL: Alert, interacts well. No acute distress. Talkative and well-appearing HEAD: Normocephalic, atraumatic. EYES: Pupils equal, round, and reactive to light. Extraocular movements intact. ENT: Oral mucosa slightly dry, tongue midline. Oropharynx unremarkable. Airway patent. NECK: Full range of motion. Supple. Trachea midline. No lymphadenopathy. LUNGS: Clear to auscultation bilaterally, no wheezes, rales, or rhonchi. No respiratory distress. Non-tender chest wall. HEART: Regular rate and rhythm. No murmur ABDOMEN: Soft, non-tender. Non-distended. Bowel sounds present in all 4 quadrants. GENITOURINARY: Deferred EXTREMITIES: Moves all 4 extremities spontaneously. No edema, normal radial and dorsalis pedis pulses bilaterally. No cyanosis. BACK: There is tenderness along the upper trapezius muscles and paracervical muscles bilaterally, range of motion laterally is limited to both sides. No overt tenderness noted midline, no signs of trauma. Unremarkable back exam otherwise. No saddle anesthesia, normal distal neurovascular exam. Moves all extremities in full range of motion. NEUROLOGICAL: Alert and oriented x3. Normal speech. Cranial nerves II through XII grossly intact. Strength 5/5 in all extremities. Normal finger-nose testing, normal rapid movement testing, no ataxia. PSYCH: Normal affect, normal mood. SKIN: Warm, dry, normal turgor. No rashes or lesions noted. Course - Re-evaluation Re-evalutation: On my exam patient states she still has a mild headache, she states that she has been waiting for an extended period of time and she "walked out of my car but came back in because I felt suddenly vaguely nauseated". She does have tenderness along her neck with limited range of motion especially laterally. This is not new. She describes her headache as a band across her head. She de nies recent injury, fever, she does not have nuchal rigidity. She has no neurological deficits on exam. Patient is very talkative, talking about home life, dreams she had last night, "premonitions" that she has. She states that she wants to go home now. CBC shows my leukocytosis at 13 with elevation of neutrophils but no bandemia. No anemia. Chemistry unremarkable. Urinalysis shows elevated specific gravity, otherwise unremarkable. Troponin negative. Chest x-ray and EKG without acute findings. CT of the head reviewed and shows no acute findings. I offered to treat her headache and give IV fluids. I suspect the headache is a tension headache at this point probably secondary to her ongoing neck issues, however she declined this. She states she would like nausea on occasion, med ication for her neck at home, and discharge. I did discuss all of her work-up with her, I discussed primary care follow-up, she already has scheduled follow- up for her neck and she states they have discussed surgery. Patient stable and well-appearing at time of discharge. - Vital Signs Vital signs: Temp Pulse Resp BP Pulse Ox 98.4 F 63 20 152/88 H 99 07/14/20 22:42 07/14/20 22:42 07/15/20 02:18 07/15/20 02:18 07/15/20 02:18 - Laboratory Result Diagrams: 07/14/20 20:39 07/14/20 20:39 Laboratory results interpreted by me: 07/14/20 07/14/20 07/14/20 19:18 20:39 20:39 WBC 13.7 H RDW 15.0 H Abs Lymphs (Manual) 5.9 H ALT 40 H Urine Ketones TRACE H Urine Urobilinogen 2.0 H Urine Ascorbic Acid 40 H - EKG Interpretation by Me Additional EKG results interpreted by me: EKG shows sinus rhythm at a rate of 69, first-degree AV block with [place] interval of 272, normal axis. Borderline T wave in lead aVL but no T wave inversions or systemic changes in consecutive leads. QTc 420. Discharge - Discharge Clinical Impression: Upper back pain, Elevated blood pressure reading Headache Qualifiers: Headache type: unspecified Headache chronicity pattern: acute headache Intractability: not intractable Qualified Code(s): R51.9 - Headache, unspecified Condition: Stable Disposition: HOME, SELF-CARE Additional Instructions: The CAT scan of your head and your general work-up here did not show any concerning findings. Based on your exam and symptoms I believe that you are having tension headaches, probably from the tight muscles and muscle spasms in your upper back and neck. I recommend heat, gentle stretches and massage, primary care follow-up for management of your neck. You have also been prescribed medication to use as a muscle relaxer using the precautions. You can also take [id number] pain medication for this. You have also been prescribed nausea medication which can help with headaches. Return if you worsen including severe worsening headache, vomiting, developing numbness in the extremities, fever, or any other concerning or worsening symptoms. Prescriptions: Diazepam [Valium 5 mg Tablet] 1 - 2 tab PO TID PRN #12 tablet PRN Reason: Ondansetron [Zofran Odt 4 mg Tablet] 1 - 2 tab PO Q4H PRN #15 tab.rapdis PRN Reason: For Nausea/Vomiting Referrals: NICCI CAMEJO MD [Primary Care Provider] - 07/17/20
[2020-07-15] MEDS ORDERED: ONDANSETRON ODT 4 MG TAB (6 TAB/ER DISP) PO PRN (02:15)
[2020-07-15 02:30] VITALS: BP 152/88
== END 2020-07-15 02:31 | disposition home or self-care (01) ==
LOC: ER 17:44
DX: I10 Essential (primary) hypertension (principal); R51.9 Headache, unspecified; M54.9 Dorsalgia, unspecified; S13.101A Dislocation of unspecified cervical vertebrae, initial encounter; W13.3XXA Fall through floor, initial encounter; D72.828 Other elevated white blood cell count; R42 Dizziness and giddiness; H53.8 Other visual disturbances; E11.9 Type 2 diabetes mellitus without complications; R06.02 Shortness of breath; R07.89 Other chest pain; J45.909 Unspecified asthma, uncomplicated; I25.2 Old myocardial infarction; F17.210 Nicotine dependence, cigarettes, uncomplicated; Z79.899 Other long term (current) drug therapy; Z87.01 Personal history of pneumonia (recurrent); Z86.711 Personal history of pulmonary embolism; Z86.73 Personal history of transient ischemic attack (TIA), and cerebral infarction without residual deficits; Z95.5 Presence of coronary angioplasty implant and graft; Z88.1 Allergy status to other antibiotic agents; Z91.040 Latex allergy status; Z88.0 Allergy status to penicillin; Z88.6 Allergy status to analgesic agent; Z88.5 Allergy status to narcotic agent; Z91.018 Allergy to other foods; R11.0 Nausea
CPT/HCPCS: 36415; 70450; 71045; 80053; 81001; 83880; 84484; 85025; 93005; 93010; 99285

== ENCOUNTER 2020-07-15 02:35 | Emergency (ER) | payer MEDICAID ==
[2020-07-15 02:43] VITALS: BP 163/99
[2020-07-15] MEDS ORDERED: METOCLOPRAMIDE HCL INJ/PF 10 MG/2 ML SDV IV ONE (03:40)
[2020-07-15] MEDS ORDERED: KETOROLAC TROMETHAMINE INJ/PF 30 MG/1 ML SDV IV ONE (03:41)
[2020-07-15] MEDS ORDERED: NORMAL SALINE 1000 ML 1,000 ML IV ONE (03:41)
--- NOTE | 2020-07-15 04:33 | ER Document Report ---
HPI - HPI Time Seen by Provider: 07/15/20 03:38 Pain Level: 4 Context: Patient is a 50-year-old female that comes emergency department for chief complaint of a headache. I just evaluated this patient, I had offered her IV fluids and headache treatment before discharge but she had declined and requested discharge for treatment at home. She just had a full evaluation including CAT scan of the head, full laboratory work-up, and based on her evaluation I did believe that with her chronic and ongoing neck pain, muscle spasms in the neck, bandlike headache that developed today, normal neurological exam, reassuring evaluation, that she did have a tension headache which I had offered to treat her for. Patient states that she was going to drive home but she had the headache and she suddenly felt uncomfortable doing so, she states she checked back in for treatment of the headache. She denies any events since her recent discharge including injury, new development of symptoms, or severe headache. Past medical history of hypertension, CAD, type 2 diabetes, smoking. - REPRODUCTIVE Reproductive: DENIES: : Past Medical History - General Information source: Patient - Social History Smoking Status: Current Some Day Smoker Frequency of alcohol use: None Drug Abuse: None Lives with: Family Family History: Arthritis, Malignancy, CAD, CVA, Hyperlipidemia, Hypertension, Reviewed & Not Pertinent - Past Medical History Cardiac Medical History: Reports: Hx Congestive Heart Failure, Hx Heart Attack, Hx Hypertension, Hx Pulmonary Embolism - 2003 Denies: Hx Coronary Artery Disease Pulmonary Medical History: Reports: Hx Asthma, Hx Bronchitis, Hx Pneumonia Denies: Hx COPD Neurological Medical History: Denies: Hx Cerebrovascular Accident, Hx Migraine, Hx Seizures Endocrine Medical History: Reports: Hx Diabetes Mellitus Type 2 Renal/ Medical History: Reports: Hx Kidney Stones. Denies: Hx Peritoneal Dialysis Musculoskeletal Medical History: Reports Hx Arthritis, Reports Hx Musculoskeletal Deformity - chronic back pain Psychiatric Medical History: Reports: Hx Anxiety, Hx Obsessive Compulsive Disorder Past Surgical History: Reports: Hx Section, Hx Kidney (Renal Surgery) - stent and removal - Immunizations Immunizations up to date: Yes Hx Diphtheria, Pertussis, Tetanus Vaccination: Yes - 2016 Vertical Provider Document - CONSTITUTIONAL General Appearance: WD/WN, No Apparent Distress - INFECTION CONTROL TRAVEL OUTSIDE OF THE [place] IN LAST 30 DAYS: No - HEENT HEENT: Atraumatic, Normal ENT Exam, Normocephalic - NECK Neck: Normal Inspection - RESPIRATORY Respiratory: Breath Sounds Normal, No Respiratory Distress - CARDIOVASCULAR Cardiovascular: Regular Rate, Regular Rhythm - GI/ABDOMEN Gastrointestinal: Abdomen Soft, Abdomen Non-Tender - BACK Back: negative: Normal Inspection - There is tenderness along the upper trapezius muscles and paracervical muscles bilaterally, range of motion laterally is limited to both sides. No overt tenderness noted midline, no signs of trauma. Unremarkable back exam otherwise. No saddle anesthesia, normal distal neurovascular exam. - MUSCULOSKELETAL/EXTREMETIES Musculoskeletal/Extremeties: MAEW, FROM, Non-Tender - NEURO Level of Consciousness: Awake, Alert, Appropriate Motor/Sensory: No Motor Deficit, No Sensory Deficit - DERM Integumentary: Warm, Dry, No Rash Course - Re-evaluation Re-evalutation: Patient with a any reported change from prior but is requesting treatment which was offered to her to begin with. This was ordered, however nursing staff reports that when they were going to start the IV patient states she felt better, changed her mind, and eloped. Patient was gone before I came back to evaluate her again. - Vital Signs Vital signs: Temp Pulse Resp BP Pulse Ox 97.5 F 67 17 163/99 H 98 07/15/20 02:41 07/15/20 02:41 07/15/20 02:41 07/15/20 02:41 07/15/20 02:41 Discharge - Discharge Clinical Impression: Neck pain Headache Qualifiers: Headache type: unspecified Headache chronicity pattern: acute headache Intractability: not intractable Qualified Code(s): R51.9 - Headache, unspecified Disposition: ELOPED Referrals: NICCI CAMEJO MD [Primary Care Provider] - Follow up as needed
== END 2020-07-15 05:28 | disposition left against medical advice (07) ==
LOC: ER 02:35
DX: R51.9 Headache, unspecified (principal); M62.838 Other muscle spasm; M54.2 Cervicalgia; G89.29 Other chronic pain; I25.10 Atherosclerotic heart disease of native coronary artery without angina pectoris; I10 Essential (primary) hypertension; E11.9 Type 2 diabetes mellitus without complications; J45.909 Unspecified asthma, uncomplicated; F17.200 Nicotine dependence, unspecified, uncomplicated; Z53.29 Procedure and treatment not carried out because of patient's decision for other reasons
CPT/HCPCS: 99281

== ENCOUNTER 2020-09-08 02:40 | Emergency (ER) | payer MEDICAID ==
[2020-09-08] MEDS ORDERED: DICYCLOMINE HCL INJ 20 MG/2 ML AMPULE IM ONE (05:36)
[2020-09-08] MEDS ORDERED: FAMOTIDINE 20 MG TABLET PO ONE (05:37)
[2020-09-08] MEDS ORDERED: MAG HYDROX/AL HYDROX/SIMETH SUSP 30 ML UDCUP PO ONE (05:37)
--- NOTE | 2020-09-08 05:58 | ER Document Report ---
ED Medical Screen (RME) - General Chief Complaint: Nausea Stated Complaint: ABDOMINAL PAIN/NAUSEA Primary Care Provider: NICCI CAMEJO MD [Primary Care Provider] - Follow up as needed Notes: 50-year-old female with history of asthma presents with diffuse abdominal discomfort worse in epigastrium has been constant for past approximately day and a half after having chicken that she said was bad the previous evening. Patient has felt nauseous and had one episode of vomiting. Patient denies fever, sick contacts, cough/fever/recent illness. is in the house and he did not have chicken and he is not sick. TRAVEL OUTSIDE OF THE [place] IN LAST 30 DAYS: No - Related Data Allergies/Adverse Reactions: azithromycin [Azithromycin] Allergy (Severe, Verified 07/14/20 18:28) HIVES, N/V latex Allergy (Intermediate, Verified 07/14/20 18:28) Hives Penicillins Allergy (Mild, Verified 07/14/20 18:28) HIVES ITCHING clindamycin Allergy (Verified 07/14/20 18:28) morphine Allergy (Verified 07/14/20 18:28) Hives dairy Allergy (Uncoded 07/14/20 18:28) Home Medications: bp med, asthma med, xanax prn, percocet Past Medical History - General Information source: Patient - Past Medical History Cardiac Medical History: Reports: Hx Congestive Heart Failure, Hx Heart Attack, Hx Hypertension, Hx Pulmonary Embolism - 2003 Denies: Hx Coronary Artery Disease Pulmonary Medical History: Reports: Hx Asthma, Hx Bronchitis, Hx Pneumonia Denies: Hx COPD Neurological Medical History: Denies: Hx Cerebrovascular Accident, Hx Migraine, Hx Seizures Endocrine Medical History: Reports: Hx Diabetes Mellitus Type 2 Renal/ Medical History: Reports: Hx Kidney Stones. Denies: Hx Peritoneal Dialysis Musculoskeltal Medical History: Reports Hx Arthritis, Reports Hx Musculoskeletal Deformity - chronic back pain Psychiatric Medical History: Reports: Hx Anxiety, Hx Obsessive Compulsive Disorder Past Surgical History: Reports: Hx Section, Hx Kidney (Renal Surgery) - stent and removal - Immunizations Immunizations up to date: Yes Hx Diphtheria, Pertussis, Tetanus Vaccination: Yes - 2016 Review of Systems - Review of Systems Notes: No fever, no diarrhea Physical Exam - Vital signs Vitals: Temp Pulse Resp BP Pulse Ox 98.0 F 85 17 147/80 H 96 09/08/20 02:52 09/08/20 02:52 09/08/20 02:52 09/08/20 02:52 09/08/20 02:52 - Notes Notes: Well-appearing, epigastric mild tenderness without guarding or rebound Course - Re-evaluation Re-evalutation: I have greeted and performed a rapid initial assessment of this patient. A comprehensive ED assessment and evaluation of the patient, analysis of test results and completion of medical decision making process will be conducted by additional ED providers. - Vital Signs Vital signs: Temp Pulse Resp BP Pulse Ox 98.0 F 85 17 147/80 H 96 09/08/20 02:52 09/08/20 02:52 09/08/20 02:52 09/08/20 02:52 09/08/20 02:52 Doctor's Discharge - Discharge Referrals: NICCI CAMEJO MD [Primary Care Provider] - Follow up as needed
--- NOTE | 2020-09-08 06:08 | ER Document Report ---
ED GI/ - General Chief Complaint: Nausea Stated Complaint: ABDOMINAL PAIN/NAUSEA Time Seen by Provider: 09/08/20 06:07 Primary Care Provider: NICCI CAMEJO MD [Primary Care Provider] - Follow up as needed Mode of Arrival: Ambulatory Information source: Patient Notes: 09/08/20 03:13 - ED Nursing Note by BULLOCKEDWARKalen Valenzuela Num: [id number] : 1970 Patient Age: 50 pt ate chicken @ 1830, around 11pm pt started w/abd pain and nausea. pt hasn't taken anything for pain. Initialized on 09/08/20 03:13 - END OF NOTE ED Medical Screen (Brisa lange) - General Chief Complaint: Nausea Stated Complaint: ABDOMINAL PAIN/NAUSEA Primary Care Provider: NICCI CAMEJO MD [Primary Care Provider] - Follow up as needed Notes: 50-year-old female with history of asthma presents with diffuse abdominal discomfort worse in epigastrium has been constant for past approximately day and a half after having chicken that she said was bad the previous evening. Patient has felt nauseous and had one episode of vomiting. Patient denies fever, sick contacts, cough/fever/recent illness. is in the house and he did not have chicken and he is not sick. MY NOTES 50 year old female with diffuse abdominal pain shortly 1 day after eating uncooked chicken originally was brought from [facility]. Patient reports when the meat was cut into it was bloody in the middle. Both she and her 6-year-old daughter and 13-year-old son ate this. The ate some shrimp and he is doing fine. She reports she will need a work note and her son and daughter will need school note. They currently are all doing well after medications and being seen by Dr. Sánchez early this morning. TRAVEL OUTSIDE OF THE [place] IN LAST 30 DAYS: No - Related Data Allergies/Adverse Reactions: azithromycin [Azithromycin] Allergy (Severe, Verified 07/14/20 18:28) HIVES, N/V latex Allergy (Intermediate, Verified 07/14/20 18:28) Hives Penicillins Allergy (Mild, Verified 07/14/20 18:28) HIVES ITCHING clindamycin Allergy (Verified 07/14/20 18:28) morphine Allergy (Verified 07/14/20 18:28) Hives dairy Allergy (Uncoded 07/14/20 18:28) Home Medications: bp med, asthma med, xanax prn, percocet Past Medical History - General Information source: Patient - Social History Smoking Status: Current Every Day Smoker Cigarette use (# per day): Yes Chew tobacco use (# tins/day): No Smoking Education Provided: Yes Frequency of alcohol use: None Drug Abuse: None Lives with: Family Family History: Arthritis, Malignancy, CAD, CVA, Hyperlipidemia, Hypertension, Reviewed & Not Pertinent Patient has suicidal ideation: No Patient has homicidal ideation: No - Past Medical History Cardiac Medical History: Reports: Hx Congestive Heart Failure, Hx Heart Attack, Hx Hypertension, Hx Pulmonary Embolism - 2003 Denies: Hx Coronary Artery Disease Pulmonary Medical History: Reports: Hx Asthma, Hx Bronchitis, Hx Pneumonia Denies: Hx COPD Neurological Medical History: Denies: Hx Cerebrovascular Accident, Hx Migraine, Hx Seizures Endocrine Medical History: Reports: Hx Diabetes Mellitus Type 2 Renal/ Medical History: Reports: Hx Kidney Stones. Denies: Hx Peritoneal Di alysis Musculoskeletal Medical History: Reports Hx Arthritis, Reports Hx Mu sculoskeletal Deformity - chronic back pain Psychiatric Medical History: Reports: Hx Anxiety, Hx Obsessive Compulsive Disorder Past Surgical History: Reports: Hx Section, Hx Kidney (Renal Surgery) - stent and removal - Immunizations Immunizations up to date: Yes Hx Diphtheria, Pertussis, Tetanus Vaccination: Yes - 2016 Review of Systems - Review of Systems Constitutional: See HPI, Weakness, Weight loss, Recent illness EENT: No symptoms reported Cardiovascular: No symptoms reported Respiratory: No symptoms reported Gastrointestinal: See HPI, Abdominal pain, Nausea, Vomiting, Poor appetite. denies: Abdomen distended, Diarrhea, Constipation, Blood streaked bowels, Poor fluid intake, Blood in vomit, Black stools, Rectal bleeding, Fecal incontinence Genitourinary: No symptoms reported Female Genitourinary: No symptoms reported Musculoskeletal: No symptoms reported Skin: No symptoms reported Hematologic/Lymphatic: No symptoms reported Neurological/Psychological: No symptoms reported -: Yes All other systems reviewed and negative Physical Exam - Vital signs Vitals: Temp Pulse Resp BP Pulse Ox 98.0 F 85 17 147/80 H 96 09/08/20 02:52 09/08/20 02:52 09/08/20 02:52 09/08/20 02:52 09/08/20 02:52 Interpretation: Hypertensive - General General appearance: Appears well, Alert - HEENT Head: Normocephalic, Atraumatic Eyes: Normal Pupils: PERRL - Respiratory Respiratory status: No respiratory distress Chest status: Nontender Breath sounds: Normal Chest palpation: Normal - Cardiovascular Rhythm: Regular Heart sounds: Normal auscultation Murmur: No - Abdominal Inspection: Normal Distension: No distension Bowel sounds: Hyperactive Tenderness: Nontender - None tender diffusely at this time. Organomegaly: No organomegaly - Rectal Hemorrhoids: Other - Deferred - Genitourinary Bimanuel exam: Other - Deferred - Back Back: Normal, Nontender - Extremities General upper extremity: Normal inspection, Nontender, Normal color, Normal ROM, Normal temperature General lower extremity: Normal inspection, Nontender, Normal color, Normal ROM, Normal temperature, Normal weight bearing. No: Edwin's sign - Neurological Neuro grossly intact: Yes Cognition: Normal Orientation: AAOx4 Raul Coma Scale Eye Opening: Spontaneous Raul Coma Scale Verbal: Oriented [place] Coma Scale Motor: Obeys Commands Raul Coma Scale Total: 15 Speech: Normal Motor strength normal: LUE, RUE, LLE, RLE Sensory: Normal - Psychological Associated symptoms: Normal affect, Normal mood - Skin Skin Temperature: Warm Skin Moisture: Dry Skin Color: Normal Course - Vital Signs Vital signs: Temp Pulse Resp BP Pulse Ox 98.0 F 85 17 147/80 H 96 09/08/20 02:52 09/08/20 02:52 09/08/20 02:52 09/08/20 02:52 09/08/20 02:52 - Laboratory Results Result Diagrams: 09/08/20 06:54 09/08/20 06:54 Laboratory Results Interpreted: 09/08/20 06:54 RDW 14.5 H Critical Laboratory Results Reviewed: Yes Attending or Supervising Physician who Reviewed Labs: NICK PROCTOR JR - Radiology Results Critical Radiology Results Reviewed: No Critical Results Attending or Supervising Physician who Reviewed Radiology: NICK PROCTOR JR Discharge - Discharge Clinical Impression: Food poisoning Abdominal pain Qualifiers: Abdominal location: generalized Qualified Code(s): R10.84 - Generalized abdominal pain Condition: Stable Disposition: HOME, SELF-CARE Instructions: Abdominal Pain ([facility]) Additional Instructions: Follow-up with personal doctor this week return to ER as needed take medications as directed encourage fluids like diluted tea or Gatorade. Do not drink any acidic fluids like orange juice. May eat and advance from brat diet that is bananas rice applesauce toast crackers orestes indira to more advanced meals after 1 day. Avoid milk and meat products for least 24 hours. Prescriptions: Ondansetron [Zofran Odt 4 mg Tablet] 1 - 2 tab PO Q4H PRN #15 tab.rapdis PRN Reason: For Nausea/Vomiting Forms: Return to Work Referrals: NICCI CAMEJO MD [Primary Care Provider] - Follow up as needed
[2020-09-08 07:14] LABS: ABSOLUTE EOSINOPHILS # (AUTO) 0.1 10^3/uL (0.0-0.6); ABSOLUTE LYMPHOCYTES (AUTO) 2.9 10^3/uL (0.5-4.7); ABSOLUTE MONOCYTES (AUTO) 0.3 10^3/uL (0.1-1.4); ABSOLUTE NEUT (AUTO) 5.5 10^3/uL (1.7-8.2); BASOPHILS % (AUTO) 0.5 % (0-2); EOSINOPHILS % (AUTO) 1.1 % (0-6); HEMATOCRIT 39.2 % (36.0-47.0); HEMOGLOBIN 13.1 g/dL (12.0-15.5); LYMPHOCYTES % (AUTO) 32.6 % (13-45); MEAN CORPUSCULAR HEMOGLOBIN 29.1 pg (27.0-33.4); MEAN CORPUSCULAR HGB CONC 33.4 g/dL (32.0-36.0); MEAN CORPUSCULAR VOLUME 87 fl (80-97); MONOCYTES % (AUTO) 3.3 % (3-13); PLATELET COUNT 312 10^3/uL (150-450); RED BLOOD COUNT 4.49 10^6/uL (3.72-5.28); RED CELL DISTRIBUTION WIDTH 14.5 % (11.5-14.0); SEGMENTED NEUTROPHILS % (AUTO) 62.5 % (42-78); TOTAL CELLS COUNTED % (AUTO) 100 %; WHITE BLOOD COUNT 8.8 10^3/uL (4.0-10.5)
[2020-09-08 07:39] VITALS: BP 136/60
[2020-09-08 07:41] LABS: ALBUMIN 4.3 g/dL (3.5-5.0); ALKALINE PHOSPHATASE 61 U/L (38-126); ANION GAP 7 (5-19); ASPARTATE AMINO TRANSFERASE 31 U/L (14-36); BILIRUBIN,DIRECT 0.2 mg/dL (0.0-0.4); BILIRUBIN,TOTAL 0.4 mg/dL (0.2-1.3); BLOOD UREA NITROGEN 18 mg/dL (7-20); CALCIUM 10.3 mg/dL (8.4-10.2); CARBON DIOXIDE 27 mmol/L (22-30); CHLORIDE 105 mmol/L (98-107); GLUCOSE 107 mg/dL (75-110); POTASSIUM 4.4 mmol/L (3.6-5.0); TOTAL PROTEIN 7.4 g/dL (6.3-8.2)
== END 2020-09-08 07:39 | disposition home or self-care (01) ==
LOC: ER 02:40
DX: A05.9 Bacterial foodborne intoxication, unspecified (principal); R10.84 Generalized abdominal pain; R11.0 Nausea; F17.210 Nicotine dependence, cigarettes, uncomplicated; I50.9 Heart failure, unspecified; I11.0 Hypertensive heart disease with heart failure; E11.9 Type 2 diabetes mellitus without complications; Z88.0 Allergy status to penicillin; Z91.040 Latex allergy status; Z88.3 Allergy status to other anti-infective agents; Z86.711 Personal history of pulmonary embolism; Z87.442 Personal history of urinary calculi; I25.2 Old myocardial infarction
CPT/HCPCS: 99284; 96372; 36415; 83690; 84703; 85025; 80053; J3490 ×2; J0500

== ENCOUNTER → 2020-09-22 | Outpatient (CLI) | payer MEDICAID ==
--- NOTE | 2020-09-22 15:44 | RADIOLOGY REPORT (SQ) ---
EXAM DESCRIPTION: NM 3 PHASE BONE SCAN IMAGES COMPLETED DATE/TIME: 09/22/2020 2:53 pm REASON FOR STUDY: COMPLEX REGIONAL PAIN SYNDROME I G90.50 COMPLEX REGIONAL PAIN SYNDROME I, RIGHT S MALOU. COMPARISON: Radiographs 09/22/2020 RADIONUCLIDE AND DOSE: 20 millicuries Tc99m MDP. The route of agent administration: Intravenous. ADDITIONAL DRUGS AND DOSES: None. TECHNIQUE: Following injection of the radiopharmaceutical, serial blood flow images acquired. Equil ibrium blood pool images then acquired. Routine delayed images at 3 hours acquired of the areas of c linical concern with additional focused images as needed. AREA OF INTEREST: Right shoulder LIMITATIONS: None. FINDINGS: VASCULAR FLOW IMAGES: No asymmetry or focal areas of hyperemia. BLOOD POOL IMAGES: No asymmetry or focal areas of soft-tissue hyper-perfusion. BONES: There is fairly intense uptake in the right shoulder in the region of the humeral head. There is uptake in the acromion and coracoid process. KIDNEYS: Kidneys not imaged. OTHER: No other significant finding. IMPRESSION: There is increased uptake in the right shoulder that may be consistent with diagnosis of CRPS, but there does not appear to be significant hyperemia or increased blood pool activity. Lack of alternate radiographic explanation for pain makes the diagnosis of CRPS more likely, however. COMMENT: Quality measure 147: Current bone scan is compared with any available plain radiographs, p rior bone scans, and CT/MRI. TECHNICAL DOCUMENTATION: JOB ID: [id number] [employer]- All Rights Reserved Reading location - IP/workstation name: [email or web address]
--- NOTE | 2020-09-22 15:57 | RADIOLOGY REPORT (SQ) ---
EXAM DESCRIPTION: SHOULDER RIGHT 2 OR MORE VIEWS IMAGES COMPLETED DATE/TIME: 09/22/2020 3:47 pm REASON FOR STUDY: PAIN IN RIGHT SHOULDER G90.50 COMPLEX REGIONAL PAIN SYNDROME I, UNSPECIFIED COMPARISON: 05/23/2020. NUMBER OF VIEWS: Three views. TECHNIQUE: Internal rotation, external rotation, and Y view images acquired of the right shoulder. LIMITATIONS: None. FINDINGS: MINERALIZATION: Normal. BONES: No acute fracture. No worrisome bone lesions. No significant osteophytes. GLENOHUMERAL JOINT: No significant findings. ACROMIOCLAVICULAR JOINT: No large osteophytes. SOFT TISSUES: No calcifications. VISUALIZED RIBS, SPINE, AND LUNG: No other significant finding. OTHER: No other significant finding. IMPRESSION: NEGATIVE STUDY OF THE RIGHT SHOULDER. NO EXPLANATION FOR PAIN. TECHNICAL DOCUMENTATION: JOB ID: [id number] [employer]- All Rights Reserved Reading location - IP/workstation name: [email or web address]
== END ==
LOC: RAD 10:00
PROVIDERS: ATTEND Family Medicine
DX: G90.50 Complex regional pain syndrome I, unspecified (principal)
CPT/HCPCS: 73030; 78315; A9503; Q9969

== ENCOUNTER 2020-09-25 20:11 | Emergency (ER) | payer MEDICAID ==
[2020-09-25 20:21] VITALS: BP 158/87
--- NOTE | 2020-09-25 21:08 | ER Document Report ---
ED Medical Screen (RME) - General Chief Complaint: Abdominal Pain Stated Complaint: LOWER BACK PAIN Time Seen by Provider: 09/25/20 21:03 Primary Care Provider: CARMEN FERRARO DO [Primary Care Provider] - Follow up as needed Notes: She presents complaining of suprapubic abdominal pain and right flank pain since 4 PM. Patient reports some urinary frequency. Patient denies any nausea or vomiting. Patient does report history of kidney stones, asthma and diabetes. I have greeted and performed a rapid initial assessment of this patient. A comprehensive ED assessment and evaluation of the patient, analysis of test results and completion of the medical decision making process will be conducted by additional ED providers. TRAVEL OUTSIDE OF THE [place] IN LAST 30 DAYS: No - Related Data Allergies/Adverse Reactions: azithromycin [Azithromycin] Allergy (Severe, Verified 07/14/20 18:28) HIVES, N/V latex Allergy (Intermediate, Verified 07/14/20 18:28) Hives Penicillins Allergy (Mild, Verified 07/14/20 18:28) HIVES ITCHING clindamycin Allergy (Verified 07/14/20 18:28) morphine Allergy (Verified 07/14/20 18:28) Hives dairy Allergy (Uncoded 07/14/20 18:28) Home Medications: percocet, amilodipine, xanax, keflex Past Medical History - Past Medical History Cardiac Medical History: Reports: Hx Congestive Heart Failure, Hx Heart Attack, Hx Hypertension, Hx Pulmonary Embolism - 2003 Denies: Hx Coronary Artery Disease Pulmonary Medical History: Reports: Hx Asthma, Hx Bronchitis, Hx Pneumonia Denies: Hx COPD Neurological Medical History: Denies: Hx Cerebrovascular Accident, Hx Migraine, Hx Seizures Endocrine Medical History: Reports: Hx Diabetes Mellitus Type 2 Renal/ Medical History: Reports: Hx Kidney Stones. Denies: Hx Peritoneal Charleen lysis Musculoskeltal Medical History: Reports Hx Arthritis, Reports Hx Musculoskeletal Deformity - chronic back pain Psychiatric Medical History: Reports: Hx Anxiety, Hx Obsessive Compulsive Disorder Past Surgical History: Reports: Hx Section, Hx Kidney (Renal Surgery) - stent and removal - Immunizations Immunizations up to date: Yes Hx Diphtheria, Pertussis, Tetanus Vaccination: Yes - 2016 Physical Exam - Vital signs Vitals: Temp Pulse Resp BP Pulse Ox 98.2 F 77 20 158/87 H 98 09/25/20 20:15 09/25/20 20:15 09/25/20 20:15 09/25/20 20:15 09/25/20 20:15 - Back Back: CVA tenderness - Right Course - Vital Signs Vital signs: Temp Pulse Resp BP Pulse Ox 98.2 F 77 20 158/87 H 98 09/25/20 20:15 09/25/20 20:15 09/25/20 20:15 09/25/20 20:15 09/25/20 20:15 Doctor's Discharge - Discharge Referrals: CARMEN FERRARO DO [Primary Care Provider] - Follow up as needed
[2020-09-25 21:30] LABS: ABSOLUTE BASOPHILS # (AUTO) 0.1 10^3/uL (0.0-0.2); ABSOLUTE EOSINOPHILS # (AUTO) 0.2 10^3/uL (0.0-0.6); ABSOLUTE LYMPHOCYTES (AUTO) 2.9 10^3/uL (0.5-4.7); ABSOLUTE MONOCYTES (AUTO) 0.3 10^3/uL (0.1-1.4); ABSOLUTE NEUT (AUTO) 6.4 10^3/uL (1.7-8.2); BASOPHILS % (AUTO) 0.7 % (0-2); EOSINOPHILS % (AUTO) 1.6 % (0-6); HEMATOCRIT 39.6 % (36.0-47.0); LYMPHOCYTES % (AUTO) 29.5 % (13-45); MEAN CORPUSCULAR HEMOGLOBIN 28.5 pg (27.0-33.4); MEAN CORPUSCULAR HGB CONC 32.8 g/dL (32.0-36.0); MEAN CORPUSCULAR VOLUME 87 fl (80-97); MONOCYTES % (AUTO) 3.4 % (3-13); PLATELET COUNT 297 10^3/uL (150-450); RED BLOOD COUNT 4.55 10^6/uL (3.72-5.28); RED CELL DISTRIBUTION WIDTH 14.7 % (11.5-14.0); SEGMENTED NEUTROPHILS % (AUTO) 64.8 % (42-78); TOTAL CELLS COUNTED % (AUTO) 100 %; WHITE BLOOD COUNT 9.9 10^3/uL (4.0-10.5)
[2020-09-25 21:43] LABS: APPEARANCE,URINE SLIGHTLY-CLOUDY; BILIRUBIN,URINE NEGATIVE (NEGATIVE); COLOR,URINE YELLOW; GLUCOSE, URINE NEGATIVE (NEGATIVE); KETONES,URINE 20 mg/dL (NEGATIVE); LEUKOCYTE ESTERASE,URINE MODERATE (NEGATIVE); NITRITE,URINE NEGATIVE (NEGATIVE); PROTEIN,URINE NEGATIVE (NEGATIVE); URINE SPECIFIC GRAVITY 1.026; UROBILINOGEN,URINE NEGATIVE mg/dL (<2.0)
[2020-09-25 21:50] LABS: ALBUMIN 4.1 g/dL (3.5-5.0); ALKALINE PHOSPHATASE 58 U/L (38-126); ANION GAP 7 (5-19); ASPARTATE AMINO TRANSFERASE 28 U/L (14-36); BILIRUBIN,DIRECT 0.2 mg/dL (0.0-0.4); BILIRUBIN,TOTAL 0.4 mg/dL (0.2-1.3); BLOOD UREA NITROGEN 16 mg/dL (7-20); CALCIUM 9.3 mg/dL (8.4-10.2); CARBON DIOXIDE 29 mmol/L (22-30); CHLORIDE 103 mmol/L (98-107); GLUCOSE 98 mg/dL (75-110); POTASSIUM 3.6 mmol/L (3.6-5.0); TOTAL PROTEIN 7.4 g/dL (6.3-8.2)
--- NOTE | 2020-09-26 03:03 | RADIOLOGY REPORT (SQ) ---
CT abdomen and pelvis without contrast on 09/26/2020 at 2:02 AM CLINICAL INDICATION: Right-sided back pain and right lower quadrant pain, kidney stones TECHNIQUE: Multiple axial images are obtained throughout the abdomen and pelvis without the administration of contrast. This exam was performed according to our departmental dose-optimization program, which includes automated exposure control, adjustment of the mA and/or kV according to patient size and/or use of iterative reconstruction technique. Total DLP is 948.81 mGy*cm. COMPARISON: 08/29/2018 FINDINGS: Abdomen: The lung bases are clear. There is a small nonobstructing stone in the upper pole of the left kidney measuring 2-3 mm. There are no ureteral stones and no hydronephrosis. The unenhanced solid abdominal organs are otherwise unremarkable. There is no abdominal adenopathy. There is no free fluid or free air within the abdomen. The abdominal portion of the GI tract is unremarkable. Pelvis: There is mild diverticulosis. The pelvic portion of the GI tract including the appendix is otherwise unremarkable. Uterus is enlarged, this may be related to uterine fibroids. Pelvic organs otherwise appear unremarkable by CT. There is no free fluid in the pelvis. There is no pelvic adenopathy. No acute bony abnormality is noted. IMPRESSION: 1. Left nephrolithiasis. 2. Mild diverticulosis. 3. Enlarged uterus that could be related to uterine fibroids, consider correlation with nonemergent pelvic ultrasound.
--- NOTE | 2020-09-26 05:04 | ER Document Report ---
ED General - General Chief Complaint: Abdominal Pain Stated Complaint: LOWER BACK PAIN Time Seen by Provider: 09/25/20 21:03 Primary Care Provider: CARMEN FERRARO DO [Primary Care Provider] - Follow up as needed Notes: 50-year-old woman with history of kidney stones presents with 1 day of constant pain in the right flank radiating to right lower quadrant without associated symptoms. Patient says pain is similar to her prior renal colic pain. Previously needed stent for ureter stone which was removed without complication, no issues recently. Patient has been being treated for bacterial vaginosis but says she is not sure if symptoms have improved. Endorses having vaginal discharge. Patient states she is sexually active with one partner. Patient denies fever, vomiting, diarrhea, constipation, black stool, bloody stool, dysuria/frequency/urgency, trauma, pelvic pain, midline back pain TRAVEL OUTSIDE OF THE [place] IN LAST 30 DAYS: No - Related Data Allergies/Adverse Reactions: azithromycin [Azithromycin] Allergy (Severe, Verified 07/14/20 18:28) HIVES, N/V latex Allergy (Intermediate, Verified 07/14/20 18:28) Hives Penicillins Allergy (Mild, Verified 07/14/20 18:28) HIVES ITCHING clindamycin Allergy (Verified 07/14/20 18:28) morphine Allergy (Verified 07/14/20 18:28) Hives dairy Allergy (Uncoded 07/14/20 18:28) Home Medications: percocet, amilodipine, xanax, keflex Past Medical History - General Information source: Patient - Social History Smoking Status: Current Some Day Smoker Family History: Arthritis, Malignancy, CAD, CVA, Hyperlipidemia, Hypertension, Reviewed & Not Pertinent - Past Medical History Cardiac Medical History: Reports: Hx Congestive Heart Failure, Hx Heart Attack, Hx Hypertension, Hx Pulmonary Embolism - 2003 Denies: Hx Coronary Artery Disease Pulmonary Medical History: Reports: Hx Asthma, Hx Bronchitis, Hx Pneumonia Denies: Hx COPD Neurological Medical History: Denies: Hx Cerebrovascular Accident, Hx Migraine, Hx Seizures Endocrine Medical History: Reports: Hx Diabetes Mellitus Type 2 Renal/ Medical History: Reports: Hx Kidney Stones. Denies: Hx Peritoneal Dialysis Musculoskeletal Medical History: Reports Hx Arthritis, Reports Hx Musculoskeletal Deformity - chronic back pain Psychiatric Medical History: Reports: Hx Anxiety, Hx Obsessive Compulsive Disorder Past Surgical History: Reports: Hx Section, Hx Kidney (Renal Surgery) - stent and removal - Immunizations Immunizations up to date: Yes Hx Diphtheria, Pertussis, Tetanus Vaccination: Yes - 2017 Review of Systems - Review of Systems Notes: REVIEW OF SYSTEMS: CONSTITUTIONAL : Denies fever, chills, or sweats. EENT: Denies recent cold/sinus symptoms, denies throat pain CARDIOVASCULAR: Denies chest pain, JORDYN RESPIRATORY: Denies cough, denies shortness of breath. GASTROINTESTINAL: + abdominal pain, -nausea/vomiting. GENITOURINARY: Denies difficulty urinating, painful urination. FEMALE GENITOURINARY: Denies abnormal vaginal bleeding, +vaginal discharge. MUSCULOSKELETAL: Denies neck pain, back pain. SKIN: Denies rash or skin lesions. HEMATOLOGIC : Denies easy bruising or bleeding. LYMPHATIC: Denies swollen, enlarged glands. NEUROLOGICAL: Denies headache, denies change in gait. PSYCHIATRIC: Denies anxiety or stress or depression. Physical Exam - Vital signs Vitals: Temp Pulse Resp BP Pulse Ox 98.2 F 77 20 158/87 H 98 09/25/20 20:15 09/25/20 20:15 09/25/20 20:15 09/25/20 20:15 09/25/20 20:15 - Notes Notes: PHYSICAL EXAMINATION: GENERAL: Well-appearing, well-nourished and in no acute distress. Patient sleeping comfortably when I entered the exam room. HEAD: Atraumatic, normocephalic. EYES: Pupils equal round and appropriate constriction, sclera anicteric, conjunctiva are normal. ENT: nares patent, moist mucous membranes. NECK/BACK: Normal range of motion, supple without lymphadenopathy, no midline spinal tenderness or deformity LUNGS: Breath sounds clear to auscultation bilaterally and equal. No wheezes rales or rhonchi. HEART: Regular rate and rhythm without murmurs ABDOMEN: Soft, mild right lower quadrant tenderness without guarding or rebound, no masses, positive mild right CVA tenderness EXTREMITIES: Normal range of motion, no pitting or edema. No cyanosis. NEUROLOGICAL: Awake, alert, conversing appropriately, moves all extremities spontaneously. PSYCH: Normal mood, normal affect. SKIN: Warm, Dry, normal turgor, no rashes or lesions noted. Course - Re-evaluation Re-evalutation: 09/26/20 05:08 Patient with 1 day of right flank pain right lower quadrant pain, no signs of acute surgical abdomen, vital signs normal, patient very well-appearing. Patient being treated for BV but says that she was diagnosed via self swab. I informed patient that I would obtain CT of her abdomen and pelvis but if there is no sign of appendicitis or renal colic to explain the symptoms that I would need to do a pelvic exam and obtain a transvaginal ultrasound to ensure that there was no pelvic etiology causing her symptoms. Obtain CT abdomen pelvis which had no emergent findings so I ordered pelvic set up as previously discussed with patient, but I was informed that the patient had eloped before I was able to complete it. Patient fully had capacity to refuse further medical care, no indication to recall to ED. - Vital Signs Vital signs: Temp Pulse Resp BP Pulse Ox 98.2 F 77 20 158/87 H 98 09/25/20 20:15 09/25/20 20:15 09/25/20 20:15 09/25/20 20:15 09/25/20 20:15 - Laboratory Results Result Diagrams: 09/25/20 21:20 09/25/20 21:20 Laboratory Results Interpreted: 09/25/20 09/25/20 09/25/20 21:20 21:20 21:20 RDW 14.7 H ALT 38 H Urine Ketones 20 H Ur Leukocyte Esterase MODERATE H Urine Ascorbic Acid 20 H Critical Laboratory Results Reviewed: No Critical Results - Radiology Results Critical Radiology Results Reviewed: No Critical Results Discharge - Discharge Clinical Impression: Abdominal pain Qualifiers: Abdominal location: right lower quadrant Qualified Code(s): R10.31 - Right lower quadrant pain Disposition: ELOPED Referrals: CARMEN FERRARO DO [Primary Care Provider] - Follow up as needed
== END 2020-09-26 04:20 | disposition left against medical advice (07) ==
LOC: ER 20:11
DX: R10.31 Right lower quadrant pain (principal); R10.2 Pelvic and perineal pain; R35.0 Frequency of micturition; F17.200 Nicotine dependence, unspecified, uncomplicated; I11.0 Hypertensive heart disease with heart failure; I50.9 Heart failure, unspecified; E11.9 Type 2 diabetes mellitus without complications; Z87.442 Personal history of urinary calculi; Z88.3 Allergy status to other anti-infective agents; Z91.040 Latex allergy status; Z88.0 Allergy status to penicillin; Z88.6 Allergy status to analgesic agent; I25.2 Old myocardial infarction
CPT/HCPCS: 36415; 74176; 80053; 81001; 81025; 82962; 85025; 99281